=== PATIENT | female | born 1960 | race Asian ===

== ENCOUNTER → 2018-01-03 10:58 | Outpatient (CLI) | payer OTHER, SELFPAY ==
[2018-01-03 11:21] LABS: 24 Hour Urine Protein 218.2 mg/24HR (<150 MG/24HR); 24HR. UA Prot. Total Volume 2425 mL
[2018-01-03 11:36] LABS: Creat.Clear Total Volume 2425 mL; Creatinine Clearance 33 ml/min (100-200); Creatinine Urine 38.7 mg/dL (NO RANGE EST.); Creatinine, Serum 1.99 mg/dL (0.55-1.02); EST Glomerular Filtration Rate 28 mL/min (>60); Est Glom Filt Rate - Afr Amer 33 mL/min (>60)
[2018-01-04 14:25] LABS: ANTINUCLEAR ANTIBODIES DIRECT Negative (Negative)
[2018-01-04 16:11] LABS: PROEL- A/G Ratio 1.2 (0.7-1.7); PROEL- Albumin 4.1 g/dL (2.9-4.4); PROEL- Alpha-1 Globulin 0.2 g/dL (0.0-0.4); PROEL- Beta Globulin 1.2 g/dL (0.7-1.3); PROEL- Globulin, Total 3.4 g/dL (2.2-3.9); PROEL- TOTAL PROTEIN 7.5 g/dL (6.0-8.5)
[2018-01-08 22:08] LABS: PROELU- Albumin, Urine 39.9 % (.); PROELU- Alpha-1-Globulin,Ur 3.7 % (.); PROELU- Alpha-2-Globulin,Ur 12.2 % (.); PROELU- Beta Globulin, Ur 25.2 % (.)
[2018-01-09 11:15] LABS: Eosinophil Ct. Urine No Eosinophils Seen % (.); Hep C Antibodies <0.1 s/co ratio (0.0-0.9)
== END ==
PROVIDERS: Family Provider Internal Medicine; PCP Internal Medicine; Visit Provider Internal Medicine
DX: N28.9 Disorder of kidney and ureter, unspecified (principal); R80.9 Proteinuria, unspecified
CPT/HCPCS: 82565; 82575; 84156; 84165; 84166; 86038; 86803; 87205

== ENCOUNTER → 2018-01-07 07:37 | Outpatient (CLI) | payer OTHER, SELFPAY ==
--- NOTE | 2018-01-07 07:43 | RDU_ITS ---
Reason For Study: Acute Renal Insufficiency Right Renal Artery Left Renal Artery Right renal artery ostium 109/39 Left renal artery ostium 72/21 RSV/EDV. PSV/EDV. Right renal artery proximal 87/21 Left renal artery proximal PSV/EDV PSV/EDV. 68/22 . Right renal artery mid 114/36 Left renal artery mid 76/23 PSV/EDV. PSV/EDV . Right renal artery distal 115/41 Left renal artery distal 66/23 PSV/EDV. PSV/EDV. Right RAR 1.59. Left RAR 1.06. Right Renal Parenchyma Left Renal Parenchyma Upper Pole Medula 36/14 PSV/EDV. Left upper pole medulla 22/9 Right upper pole medulla EDR 0.39 . PSV/EDV . Right upper pole medulla R.I. Left upper pole medulla EDR 0.41 . 0.61 . Left upper pole medulla R.I. 0.58 . Upper Srikanth Cortx 20/9 PSV/EDV. UP Cortex 17/6 PSV/EDV. Right upper pole cortex EDR 0.45 . Left upper pole cortex EDR 0.35 . Right upper pole cortex R.I. 0.53 . Left upper pole cortex R.I. 0.67 . Right lower Pole medulla 23/7 Left lower Pole medulla 18/6 PSV/EDV . PSV/EDV . Right lower pole medulla EDR 0.30 . Left lower pole medulla EDR 0.33 . Right lower pole medulla R.I. Left lower pole medulla R.I. 0.69 . 0.69 . Lower Pole Cortx 14/4 PSV/EDV. Lower Pole Cortex 21/9 PSV/EDV. Left lower pole cortex EDR 0.29 . Right lower pole cortex EDR 0.43 . Left lower pole cortex R.I. 0.70 . Right lower pole cortex R.I. 0.58 . Left Renal Hilar Right Renal Hilar LT Hilar avg 81/26 PSV/EDV . Right Hilar avg 58/21 PSV/EDV. Left hilar acceleration time 37 Right hilar acceleration time 51 m/sec. m/sec. Left Renal Dimensions Right Renal Dimensions Left kidney size 9.63 cm . Right kidney size 9.11 cm . Left cortical dimension 1.37 cm . Right cortical dimension 1.35 cm . Aorta Proximal abdominal aorta 1.98cm x 1.76 cm . Proximal abdominal aorta peak systolic velocity is 72 cm/sec . Distal abdominal aorta 1.34cm x 1.32 cm . Distal abdominal aorta peak systolic velocity is 57 cm/sec . Interpretation Summary Dimensions of the intra-abdominal aorta appear normal, without evidence of aneurysmal dilatation. Renal artery velocities are bilaterally normal. Acceleration times are normal bilaterally. Renal- aortic ratios are also bilaterally normal. There is no evidence of hemodynamically significant renal artery stenosis on either side. Renovascular resistance appears to be bilaterally normal . Cortical dimensions are bilaterally normal. Kidneys appear normal in size bilaterally. Ordering Physician: Selina Menon Referring Physician: Selina Menon Performed By: Destinee Corcoran, JOON, RVT
--- NOTE | 2018-01-07 08:52 | US_ITS ---
STUDY: RENAL ULTRASOUND - COMPLETE REASON FOR EXAM: Female, 57 years old. Left renal mass removal TECHNIQUE: Ultrasound evaluation of the kidneys was performed with real-time and static edwards-scale imaging. COMPARISON: October 26, 2013 FINDINGS: RIGHT KIDNEY: Normal location of the right kidney, which is normal in size. The right kidney measures 9.9 x 4.7 x 4.7 cm. There is a normal cortex of the right kidney. The renal cortex measures 1.3 cm. There is no right renal mass or cyst. There are no right renal calculi. There is no right hydronephrosis. DISTAL RIGHT URETER: There is non-visualization of the distal right ureter. There is no demonstrated right ureterovesical junction calculus. There is no demonstrated right ureteral jet. LEFT KIDNEY: Normal location of the left kidney, which is normal in size. The left kidney measures 9.5 x 4.6 x 5.7 cm. There is a normal cortex of the left kidney. The renal cortex measures 1.7 cm. There is no left renal mass or cyst. There are no left renal calculi. There is no left hydronephrosis. DISTAL LEFT URETER: There is non-visualization of the distal left ureter. There is no demonstrated left ureterovesical junction calculus. There is a visualized left ureteral jet. AORTA: There is obscuration of the abdominal aorta by overlying bowel gas I.V.C.: The IVC is obscured. BLADDER: The distended urinary bladder has a volume of 55.4 ml. There is a normal wall thickness of the distended urinary bladder. There is no demonstrated mass within the urinary bladder. There are no demonstrated bladder calculi. US/Kidney and Bladder IMPRESSION: Normal ultrasound of the kidneys and urinary bladder. Electronically Signed: Angel Andrews MD at 22:38 EDT , Service support ,
== END ==
PROVIDERS: Family Provider Internal Medicine; PCP Internal Medicine; Visit Provider Internal Medicine
DX: N28.9 Disorder of kidney and ureter, unspecified (principal)
CPT/HCPCS: 76770; 93975

== ENCOUNTER 2018-05-03 13:00 | Outpatient (RCR) | payer OTHER, SELFPAY ==
--- NOTE | 2018-04-12 16:03 | HP.PTEVAL_ITS ---
Patient's Visit Information PIPE BRAGG is a 58 year old F referred to Physical Therapy by Selina Menon with a diagnosis of LBP. Date of Evaluation: 04/12/18 Physical Therapist: Angel Tripp, PT, - Visit Plan Frequency: 1x/Week Duration: 3 Weeks Plan: REIL, core stab ex's, postural edu, HEP - Subjective Subjective: Pt reports she has had LBP for 5 days. Pt notes she was moving at that time and injured her LB. Pt reports she has had a Hx of LBP in the past. Pt denies tingling or numbness in LE's at this time. No sleep diff secondary to pain. Pt reports bending forward at this time is very painful. Pt reports pr olonged sitting increases her pain as well. Pt reports walking presents with no difficulty. Pt reports having no Dx tests performed at this time. 1/10 pain while sitting her at rest, 8/10 at worst (going to the restroom) - Pain LBP Pain Intensity (Out of 10): 1 Pain Intensity Range: 8 - Objective Neuro: B LE sensation is WNL to light touch. B patellar reflex= 2/3. LE MMT: B LE's 5/5 throughout. L/S ROM: Pt is severely limited with ext and flexion. repeated movements: REIL abolished all pain in LB 10x2 - Goals Goal 1:: Decrease LBP x 50% to aid with IADL's Goal Time Frame: 2-4 Weeks Goal 2:: Increase L/S ROM x 1 grade to aid with IADL's Goal Time Frame: 2-4 Weeks Goal 3:: I with HEP Goal Time Frame: 2-4 Weeks - Rehabilitation Potential Physical Therapy Diagnosis: Pt has LBP and diff with IADL's secondary to L/S disc derrangement Rehabilitation Potential: Good - Anticipated Interventions Patient/Client Instruction: Educate patient on: Condition, Plan of Care For the Purpose of:: To improve self management Therapeutic Exercise to Include: Strength training, Endurance training, Body mechanics, Postural training, Dynamic Lumbar Stabilization For the Purpose of:: To decrease pain, To increase ROM, To improve muscle performance and motor function Cryotherapy (ice pack, ice massage): Yes Thermo therapy (hot pack): Yes For the Purpose of:: To decrease pain Thank you for the opportunity to evaluate your patient. For Medicare and Medicare HMO plans, please review the plan of care and approve it. It will need to be FAXED BACK to us at [phone] for Medicare purposes. Please let me know if there are questions or concerns regarding this plan of care. Physician Signature: Date:
--- NOTE | 2018-05-03 13:48 | HP.PTDCSUM ---
HP - PT D/C Summary It has been my pleasure to treat PIPE BRAGG under orders from Selina Menon, for the diagnosis of LBP for a total of 4 visit(s). Discharge Date: Please see the following information for a summary of their discharge status. - Subjective Subjective: Pt is doing much better today - Pain LBP Pain Intensity (Out of 10): 3 - Overall Improvement % Improvement: 75 - Objective Objective/Function: Pt reports pain is minimal at 2-09/01 this date. Pt has full L/S ROM. Pt is I with HEP. Rx goals achieved - Goals Goal 1:: Decrease LBP x 50% to aid with IADL's Goal Progress: Goal Met Goal 2:: Increase L/S ROM x 1 grade to aid with IADL's Goal Progress: Goal Met Goal 3:: I with HEP Goal Progress: Goal Met - Plan Plan: discharge - D/C Information If there are questions or concerns regarding this patient's physical therapy, please feel free to call me at [phone]. Thank you for the referral of this patient. Sincerely, Angel Tripp, PT,
== END 2018-05-03 19:00 | disposition home or self-care (01) ==
LOC: PT 13:00
PROVIDERS: Family Provider Internal Medicine; PCP Internal Medicine; Referring Provider Internal Medicine; Visit Provider Internal Medicine
DX: M54.5 Low back pain (principal)
CPT/HCPCS: 97110; 97161; 97530

== ENCOUNTER → 2018-05-27 11:09 | Outpatient (CLI) | payer OTHER, SELFPAY ==
--- OUTSIDE RECORDS SUMMARY | 2018-07-20 17:01 | XMS RPT_ITS | Continuity of Care Document ---
:1960 Author Organization [facility] Address [facility] [address] [place] [address] Phone Care Team Providers Name Role Phone Selina Menon MD Unavailable Tanphaichitr - Carson, Ozzie Unavailable Dr. Griffin Herbert Unavailable Piedad , Dr. Moya Unavailable PHI Mitchell Unavailable Unavailable Unavailable Unavailable Problems Name Dates Details Abnormal blood creatinine level (R79.9, 790.99) Status: Active Abnormal finding of blood chemistry, unspecified (R79.9, 790.6) Comments: uric acid up no signs and symptoms of gout started allopurinol through nephro Status: Active Abortions/Miscarriages Comments: 1 Status: Active Acute renal insufficiency (N28.9, 593.9) Comments: no nsaids. no new meds atb or recent IV dye she went 1.3 up to 1.88 she is urinating okay no pain. no postrenal signs and symptoms she is now oinly drinking one bottle a day. once she stopped gatorade b ecause sugar never increased upwater. so she will go on G2 recheck.normal until 2013 then in hospital with dehydration then 1.3 now backup. Status: Active Anxiety (F41.9, 300.00) Comments: doing okay just on seroquel Status: Active Benign essential hypertension (Renamed from Benign essential HTN) (I10, 401.1) Status: Active Bipolar affective, manic (F31.10, 296.40) Comments: original diagnosis with psych when in hospital has delusions talk to and doing some better Status: Active BMI 24.0-24.9, adult (Z68.24, V85.1) Status: Active BMI 25.0-25.9,adult (Z68.25, V85.21) Status: Active BMI 26.0-26.9,adult (Z68.26, V85.22) Status: Active BMI 27.0-27.9,adult (Z68.27, V85.23) Comments: gain at wedding not drink calories, eating out more with moving from house to condo. talk bout not eat slovenian fries. eat vegetables steamer packs. Status: Active Chronic kidney disease, stage 3 (N18.3, 585.3) Comments: FRANK neg, labs neg, us neg see nephro Status: Active Current nonsmoker (Renamed from Current non-smoker) (Z78.9, V49.89) Status: Active Deliveries (Parity) Comments: 2 Status: Active Delusional disorder, mixed type (F22, 297.1) Comments: patient was admitted and now on Abilify injectable, seems to being doing better, not doing as much risky behavior Status: Active Diabetes mellitus type II, controlled, with no complications (E11.9, 250.00) Comments: hga1c better now and stable. talka bout adding walking daily. eating good.opthal 1-18 Status: Active Eosinophilia (D72.1, 288.3) Status: Active Hyperglyceridemia (E78.1, 272.1) Comments: recheck next time Status: Active Hyperlipidemia (E78.5, 272.4) Comments: been on lipitor Status: Active Low back pain without sciatica, unspecified back pain laterality (724.2) Comments: right now in lower mid back. will do tylenol no nsaids with renal insuff. will do muscle relaxant. and PT which helped inpast will only do light packig no excess bending or lifting Status: Active Need for prophylactic vaccination and inoculation against influenza (Z23, V04.81) Status: Active OVERWEIGHT (Renamed from Excessive fat) (E66.3, 278.02) Comments: not bad now. recommend walk. will see if can go to [place]. has treadmil at home but in basement. Status: Active Pregnancies () Comments: 2 Status: Active Proteinuria (Renamed from Abnormal presence of protein in urine) (R80.9, 791.0) Comments: micro last 60 2-18 on arb. Status: Active Schizophrenia (F20.9, 295.90) Comments: right now under best control in long time see counseling center. Status: Active Vitamin D deficiency (E55.9, 268.9) Comments: now that up yo 70's will go from three times a week to weekly Status: Active Well woman exam (Renamed from Encounter for well woman exam) (Z01.419, V72.31) Comments: 09-03-17 [facility] Exam: Well Woman Dr. Mitchell August 24, has fu (has apt. September 18 for mammogram) BMI=26.7, PHQ-9=0, 6CIT=24/28, immunizations are up to date. she refused colonscopy and talk about her nurmerous times. even had set up. she states she gets ripping in head. talk about cologuard. she wilstart there and then consider scpe if positive vaccines needs pneumovax now. prevnar at 62 yo (bc DM) and then shingrix this summer Status: Active Medications Name Dates Details Fernandofsherry Maintena 400 MG Intramuscular Suspension Reconstituted uad For Suspension For Suspension IM once monthly for 0 days Quantity: 1 {Pre-filled_Pen_Syringe} Refills: 0 Ordered:16-Nov-2016 Selina Menon MD, MD, Dana M Start : 16-Nov-2016 Active Comments:counc. center will be given next dose 11-30-16 Acetaminophen Extra Strength 500 MG Oral Tablet 2 (two) Tablet up to three times a day for 0 days Quantity: 30 {Tablet} Refills: 0 Ordered:11-Apr-2018 Selina Menon MD, MD, Dana M Start : 11-Apr-2018 Active Allopurinol 100 MG Oral Tablet 1 (one) Tablet Tablet bid for 0 days Quantity: 60 {Tablet} Refills: 0 Ordered:12-Mar-2018 Selina Menon MD, MD, Dana M Start : 12-Mar-2018 Active Aspirin 81 81 MG Oral Tablet Chewable 1 (one) Tablet Tablet in am for 0 days Quantity: 30 {Tablet} Refills: 0 Ordered:06-Dec-2017 PHI Mitchell Start : 03-Sep-2017 Active Atorvastatin Calcium 20 MG Oral Tablet 1 Tablet daily for 0 days Quantity: 90 {Tablet} Refills: 3 Ordered:14-Mar-2018 Selina Menon MD, MD, Selina Allred Start : 14-Mar-2018 Active Losartan Potassium 50 MG Oral Tablet 1 (one) Tablet in am for 0 days Quantity: 90 {Tablet} Refills: 3 Ordered:01-Apr-2018 Selina Menon MD, MD, Selina Allred Start : 01-Apr-2018 Active Metoprolol Succinate ER 100 MG Oral Tablet Extended Release 24 Hour 1 (one) Tablet in am for 0 days Quantity: 90 {Tablet} Refills: 3 Ordered:06-May-2018 Lynsey OTT, Selina Tolentino MD, Selina Allred Start : 06-May-2018 Active Pioglitazone HCl 15 MG Oral Tablet 1 (one) Tablet in am for 0 days Quantity: 90 {Tablet} Refills: 3 Ordered:23-Jan-2018 Selina Menon MD, MD, Selina Allred Start : 23-Jan-2018 Active SEROquel XR 50 MG Oral Tablet Extended Release 24 Hour 1 (one) Tablet qd for 0 days Quantity: 30 {Tablet} Refills: 0 Ordered:12-Mar-2018 Selina Menon MD, MD, Selina Allred Start : 12-Mar-2018 Active Zanaflex 4 MG Oral Tablet 1 (one) Tablet every 8 hours prn back pain for 0 days Quantity: 20 {Tablet} Refills: 0 Ordered:11-Apr-2018 Selina Menon MD, MD, Selina Allred Start : 11-Apr-2018 Active Abilify 10 MG Oral Tablet 1 (one) Tablet at night for 0 days Quantity: 30 {Tablet} Refills: 1 Ordered:06-Apr-2016 PHI Mitchell Start : 31-Mar-2016 End : 06-Apr-2016 Inactive Abilify Maintena 300 MG Intramuscular Suspension Reconstituted 1 (one) For Suspension IM for 0 days Quantity: 1 {Each} Refills: 0 Ordered:06-Apr-2016 PHI Mitchell Start : 27-Mar-2016 End : 06-Apr-2016 Inactive AMOXICILLIN, 875MG (Oral Tablet) 1 BID for 0 days Refills: 0 Ordered:06-Nov-2008 PHI Mitchell End : 06-Nov-2008 Inactive ANTIVERT, 12.5MG (Oral Tablet) 1 Tablet q8 hrs prn for dizziness for 0 days Quantity: 20 {Tablet} Refills: 0 Ordered:08-Aug-2010 PHI Mitchell Start : 25-Jul-2010 End : 08-Aug-2010 Inactive AUGMENTIN, 875-125MG (Oral Tablet) 1 (one) Tablet bid for 14 days Quantity: 28 {Tablet} Refills: 0 Ordered:10-Jul-2013 Lynsey OTT, Selina Tolentino MD, Selina Allred Start : 10-Jul-2013 End : 24-Jul-2013 Inactive BACITRACIN, 500UNIT/GM (Ophthalmic Ointment) 1 Ointment apply 1/4 inch ointment bid for 0 days Quantity: 1 {Ointment} Refills: 0 Ordered:16-May-2010 Jessie Bales Start : 02-May-2010 End : 16-May-2010 Inactive BACTRIM DS, 800-160MG (Oral Tablet) 1 (one) Tablet bid for 5 days Quantity: 10 {Tablet} Refills: 0 Ordered:07-Dec-2008 Starlamichelledeon TRANFrances Start : 07-Dec-2008 End : 17-Dec-2008 Inactive CALCIUM, 600MG (Oral Tablet) for 0 days Refills: 0 Ordered:16-May-2010 Jessie Bales End : 16-May-2010 Inactive CELEBREX, 200MG (Oral Capsule) 1 (one) Capsule qd with food for 0 days Quantity: 30 {Capsule} Refills: 0 Ordered:16-May-2010 Jessie Bales Start : 21-Mar-2010 End : 16-May-2010 Inactive CHERATUSSIN AC, 100-10MG/5ML (Oral Syrup) 1-2 Teaspoon(s) every 6 hours prn for 0 days Quantity: 6 {Ounce(s)} Refills: 0 Ordered:25-Apr-2011 PHI Mitchell Start : 05-Apr-2011 End : 25-Apr-2011 Inactive Comments:six ounces CIPRO, 250MG (Oral Tablet) 1 (one) Tablet bid for 3 days Quantity: 6 {Tablet} Refills: 0 Ordered:10-May-2009 Frances Etienne CNP Start : 10-May-2009 End : 13-May-2009 Inactive CLOTRIMAZOLE, 10MG (Mouth/Throat Milan) 1 Milan 5 times daily for 10 days Quantity: 50 {Milan} Refills: 0 Ordered:21-Apr-2013 Long Arelis MAY Start : 21-Apr-2013 End : 01-May-2013 Inactive Clotrimazole-Betamethasone 1-0.05 % External Cream 1 (one) Cream bid for 0 days Quantity: 1 {Tube} Refills: 0 Ordered:16-Nov-2016 PHI Mitchell Start : 04-Sep-2016 End : 16-Nov-2016 Inactive CORTISPORIN, 3.5-40512-2 (Otic Solution) 1 Solution 4gtts qid for 10 days Quantity: 1 {Solution} Refills: 0 Ordered:28-Jun-2009 Ti Amber Start : 28-Jun-2009 End : 08-Jul-2009 Inactive DESOWEN LOT W/CETAPHIL CREAM, 0.05% (External Kit) 1 Kit bid for 0 days Quantity: 1 Kit Refills: 0 Ordered:08-Aug-2010 PHI Mitchell Start : 20-Jun-2010 End : 08-Aug-2010 Inactive DOXYCYCLINE HYCLATE, 100MG (Oral Tablet Delayed Release) [address] bid for 0 days Quantity: 20 {Tablet_DR} Refills: 0 Ordered:25-Apr-2011 PHI Mitchell Start : 05-Apr-2011 End : 25-Apr-2011 Inactive DOXYCYCLINE HYCLATE, 100MG (Oral Tablet) 1 Tablet bid for 10 days Quantity: 20 {Tablet} Refills: 0 Ordered:01-Jun-2011 Lynsey OTT, Selina Tolentino MD, Selina Allred Start : 01-Jun-2011 End : 11-Jun-2011 Inactive Ferrous Sulfate 325 (65 Fe) MG Oral Tablet Delayed Release 1 (one) Tablet DR bid for 0 days Quantity: 60 {Tablet} Refills: 7 Ordered:16-Nov-2016 PHI Mitchell Start : 04-Sep-2016 End : 16-Nov-2016 Inactive FLEXERIL, 10MG (Oral Tablet) 1 Tablet tid prn headache and neck tension for 0 days Quantity: 10 {Tablet} Refills: 0 Ordered:31-Mar-2010 PHI Mitchell Start : 31-Mar-2010 End : 31-Mar-2010 Inactive Comments:watch sedation, made sick FLONASE, 50MCG/ACT (Nasal Suspension) 1 Suspension 2 spray each nostirl daily for 0 days Quantity: 1 {Container} Refills: 4 Ordered:13-Feb-2014 PHI Mitchell Start : 15-Jan-2014 End : 13-Feb-2014 Inactive IMODIUM ADVANCED, 2-125MG (Oral Tablet) 1 for 0 days Refills: 0 Ordered:14-Feb-2010 PHI Mitchell Start : 10-May-2009 Inactive JANUMET, 50-500MG (Oral Tablet) 1 Tablet Tablet bid for 0 days Quantity: 60 {Tablet} Refills: 3 Ordered:26-Nov-2014 PHI Mitchell Start : 05-Nov-2014 End : 26-Nov-2014 Inactive Comments:stopped d/t excessive sweating JENTADUETO, 2.5-1000MG (Oral Tablet) 1 (one) Tablet bid for 0 days Quantity: 180 {Tablet} Refills: 0 Ordered:05-Nov-2014 PHI Mitchell Start : 27-Jan-2014 End : 05-Nov-2014 Inactive KEFLEX, 500MG (Oral Capsule) 1 (one) Capsule Capsule bid for 0 days Quantity: 14 {Capsule} Refills: 0 Ordered:27-Oct-2013 PHI Mitchell Start : 07-Oct-2013 End : 27-Oct-2013 Inactive LISINOPRIL-HYDROCHLOROTHIAZIDE, 20-12.5MG (Oral Tablet) 1 Tablet bid for 0 days Quantity: 180 {Tablet} Refills: 1 Ordered:27-Oct-2013 Selina Menon MD, MD, Dana M Start : 27-Oct-2013 End : 27-Oct-2013 Inactive Comments:hypotension MetFORMIN HCl 1000 MG Oral Tablet 1 Tablet bid for 0 days Quantity: 180 {Tablet} Refills: 3 Ordered:21-Dec-2017 Selina Menon MD, MD, Dana M Start : 21-Dec-2017 End : 21-Dec-2017 Inactive Comments:kidney function MULTIVITAMIN (Oral Liquid) for 0 days Refills: 0 Ordered:13-Feb-2014 PHI Mitchell End : 13-Feb-2014 Inactive NASACORT AQ, 55MCG/ACT (Nasal Aerosol Solution) 2 (two) Puff(s) once daily for 0 days Quantity: 1 {Aerosol_Soln} Refills: 0 Ordered:19-Sep-2010 Murali LALOZoila Start : 25-Jul-2010 End : 19-Sep-2010 Inactive NASONEX, 50MCG/ACT (Nasal Suspension) 1 Suspension 1 spray each nostril daily for 0 days Quantity: 1 {Suspension} Refills: 0 Ordered:13-Feb-2014 PHI Mitchell Start : 14-Jan-2013 End : 13-Feb-2014 Inactive OMEPRAZOLE, 40MG (Oral Capsule Delayed Release) [address] daily for 0 days Quantity: 30 {Capsule_DR} Refills: 1 Ordered:05-Jan-2012 PHI Mitchell Start : 16-Jun-2011 End : 05-Jan-2012 Inactive PHENERGAN, 25MG (Oral Tablet) Tablet TID/PRN for 0 days Quantity: 10 {Tablet} Refills: 0 Ordered:07-Dec-2008 PHI Mitchell Start : 07-Dec-2008 End : 22-Feb-2009 Inactive PREDNISONE, 20MG (Oral Tablet) 1 (one) Tablet Twice daily for 0 days Quantity: 7 {Tablet} Refills: 0 Ordered:07-Dec-2008 PHI Mitchell Start : 07-Dec-2008 End : 22-Feb-2009 Inactive Comments:1 tab bid for 2 days then 1 tab daily for 2 days then 1/2 tab daily for 2 days PROMETHAZINE-CODEINE, 6.25-10MG/5ML (Oral Syrup) 2 (two) Teaspoon(s) every 6 hours prn for 0 days Quantity: 6 {Ounce(s)} Refills: 0 Ordered:08-Nov-2010 PHI Mitchell Start : 14-Oct-2010 End : 08-Nov-2010 Inactive PROTONIX, 40MG (Oral Tablet Delayed Release) Tablet DR QD for 0 days Quantity: 14 {Tablet_DR} Refills: 0 Ordered:10-Apr-2008 PHI Mitchell Start : 10-Apr-2008 End : 27-Jul-2008 Inactive SEROquel 100 MG Oral Tablet 1 (one) Tablet 5pm and bedtime for 0 days Quantity: 180 {Tablet} Refills: 3 Ordered:16-Nov-2016 PHI Mitchell Start : 25-Apr-2016 End : 16-Nov-2016 Inactive Comments:not like in am because sleepy TOPICORT, 0.25% (External Cream) 1 Cream bid for 0 days Quantity: 1 {Cream} Refills: 0 Ordered:07-Dec-2008 PHI Mitchell Start : 07-Dec-2008 End : 22-Feb-2009 Inactive Tradjenta 5 MG Oral Tablet 1 (one) Tablet qd for 0 days Quantity: 30 {Tablet} Refills: 3 Ordered:16-Feb-2017 Lynsey OTT, Selina Tolentino MD, Selina Allred Start : 16-Feb-2017 End : 16-Feb-2017 Inactive TRAZODONE HCL, 50MG (Oral Tablet) 1 to 2 Tablet qhs, prn for 30 days Quantity: 60 {Tablet} Refills: 2 Ordered:27-Mar-2011 PHI Mitchell Start : 10-Nov-2010 End : 27-Mar-2011 Inactive Comments:dispense sixty Triamcinolone Acetonide 0.1 % External Lotion 1 (one) Lotion Lotion daily for 1 week on rash on face for 0 days Quantity: 1 {Tube} Refills: 0 Ordered:16-Feb-2017 PHI Mitchell Start : 17-Nov-2016 End : 16-Feb-2017 Inactive Vitamin D (Ergocalciferol) 46365 UNIT Oral Capsule 1 (one) Capsule weekly for 0 days Quantity: 12 {Capsule} Refills: 3 Ordered:12-Mar-2018 PHI Mitchell Start : 05-Mar-2018 End : 12-Mar-2018 Inactive ZANTAC 150 MAXIMUM STRENGTH, 150MG (Oral Tablet) 1 Tablet bid for 0 days Quantity: 60 {Tablet} Refills: 3 Ordered:06-Jun-2012 PHI Mitchell Start : 27-Nov-2011 End : 06-Jun-2012 Inactive ZEGERID, 40-1100MG (Oral Capsule) 1 Capsule qd for 0 days Quantity: 30 {Capsule} Refills: 3 Ordered:05-Jan-2012 PHI Mitchell Start : 16-Jun-2011 End : 05-Jan-2012 Inactive ZITHROMAX Z-HELADIO, 250MG (Oral Tablet) 1 Tablet uad for 0 days Quantity: 1 {Package(s)} Refills: 0 Ordered:25-Jul-2010 Zoila Carrion LPN Start : 27-Jun-2010 End : 25-Jul-2010 Inactive ZOLOFT, 100MG (Oral Tablet) 2 (two) Tablet qd for 0 days Quantity: 180 {Tablet} Refills: 3 Ordered:26-Nov-2014 PHI Mitchell Start : 13-Jan-2014 End : 26-Nov-2014 Inactive ANTIVERT, 25MG (Oral Tablet) Tablet TID/PRN for 0 days Quantity: 20 {Tablet} Refills: 0 Ordered:28-Mar-2007 PHI Mitchell Start : 28-Mar-2007 End : 04-Jun-2007 Discontinued DEPAKOTE, 500MG (Oral Tablet Delayed Release) 1 bid (500 MG) End : 09-Mar-2015 Discontinued HYDROCHLOROTHIAZIDE, 12.5MG (Oral Capsule) 1 Capsule daily for 0 days Quantity: 30 {Capsule} Refills: 6 Ordered:06-Jun-2012 Selina Menon MD, MD, Selina Allred Start : 06-Jun-2012 End : 06-Jun-2012 Discontinued NYSTATIN, 633996GXYD/ML (Mouth/Throat Suspension) 5 Suspension Twice daily for 0 days Quantity: 30 {Suspension} Refills: 0 Ordered:24-Aug-2008 Cami Degroot Start : 24-Aug-2008 End : 28-Sep-2008 Discontinued SEROquel 300 MG Oral Tablet 1 (one) Tablet qhs for 0 days Quantity: 30 {Tablet} Refills: 0 Ordered:17-Nov-2016 Selina Menon MD, MD, Selina Allred Start : 17-Nov-2016 End : 17-Nov-2016 Discontinued Allergies and Adverse Reactions Name Dates Details No Known Allergies (Allergy) Onset: 09-Mar-2015 Status: Active No Known Drug Allergies (Allergy) Status: Active Past Medical History Name Dates Details Abdominal pain, acute, left lower quadrant (R10.32, 789.04) Comments: pt says chest pain, but point to left lower quadrant Status: Inactive as of 06-Jun-2012 Acute renal failure (N17.9, 584.9) Comments: better off hctz ? abusing or taking too much Status: Resolved as of 09-Mar-2015 Anemia (D64.9, 285.9) Comments: better now off aleve. Status: Resolved as of 03-Sep-2017 Benign paroxysmal positional vertigo, unspecified laterality (H81.10, 386.11) Status: Inactive as of 13-Oct-2013 Bronchitis (J40, 490) Comments: pt request doxycyline because work in past. CT scan 05-27-11 no pneumonia. Status: Inactive as of 06-Jun-2012 Cerumen impaction (H61.20, 380.4) Status: Inactive as of 06-Jun-2012 Chronic serous otitis media, unspecified laterality (H65.20, 381.10) 28-Jun-2009 Status: Inactive as of 23-Jul-2009 Chronic Sinusitis (Renamed from Chronic infection of sinus) (J32.9, 473.9) Comments: just saw Dr. sharma and on kavita dry out. pt ask for atb again told her not need need to treat allergies again ent over regiman Status: Inactive as of 31-Aug-2015 Conjunctivitis (H10.9, 372.30) Comments: reports matted glue shut eyes in am Status: Inactive as of 06-Jun-2012 Cough (R05, 786.2) Status: Inactive as of 06-Jun-2012 Diarrhea (Renamed from D (diarrhea)) (R19.7, 787.91) Comments: at times get. no blood of fever or abd pain. prob IBS. use fiber daily. watch triggers. will be due for scope with age turning 52 Status: Inactive as of 06-Jun-2012 Diplopia (H53.2, 368.2) Comments: she canceled appt with neurology with normal MRI and everything better now want to go did go over signs and symptoms of MS and if get any neuro signs and symptoms will call Status: Resolved as of 03-Sep-2017 Dizziness (R42, 780.4) Comments: occassional Status: Inactive as of 13-Oct-2013 Elevated blood-pressure reading without diagnosis of hypertension (R03.0, 796.2) Comments: stillup. Status: Inactive as of 13-Oct-2013 Encounter for screening colonoscopy (Z12.11, V76.51) Status: Resolved as of 06-Dec-2017 Encounter for screening for respiratory tuberculosis (Z11.1, V74.1) Status: Inactive as of 06-Jun-2012 Epigastric pain (Renamed from Abdominal pain, epigastric) (R10.13, 789.06) Status: Inactive as of 01-Mar-2012 Eye change Status: Resolved as of 08-Dec-2008 Fever (R50.9, 780.60) Comments: better now not have aches. Status: Inactive as of 06-Jun-2012 Fever, unspecified (R50.9, 780.60) Comments: low grade check ifluenza ? get early virus no bacterial infection. see lakeishanickolas KIRILL told brat diet if worsen call. Status: Inactive as of 06-Jun-2012 Foot pain (M79.673, 729.5) Status: Resolved as of 08-Dec-2008 Gastroenteritis (K52.9, 558.9) Status: Inactive as of 23-Jul-2009 Headache (Renamed from Cephalalgia) (R51, 784.0) Status: Inactive as of 13-Oct-2013 Hematoma of finger Comments: told watch nsaid if need if not better in 04-07 will do mri of finger rule out nodule, mass tumor underlying, no trauma not think need xray Status: Resolved as of 08-Dec-2008 Hypercalcemia (E83.52, 275.42) Comments: pth good and recheck good Status: Resolved as of 16-Feb-2017 Hyperkalemia (E87.5, 276.7) Comments: again. pt went back on again even after outrr talk. pt states restarted lisinopril and told her dangerous must stop and called also Status: Inactive as of 27-Feb-2014 Ingrown toenail (L60.0, 703.0) Comments: better Status: Inactive as of 13-Feb-2014 Iron deficiency anemia due to chronic blood loss (D50.0, 280.0) Comments: she canceled the appt with Dr. herbert because the appt set up come fromt he air and hurt her back. told her could have cancer and needs to get back in with her. Status: Resolved as of 15-Jan-2017 Memory change (R41.3, 780.93) Comments: pt very hard to reason with not remember things talk about in pat. ayodwain have issue wtih her. danger to life. judgement off. still not understand why doing what need to do with meds. irrat ional. needs cognitive testing and psychiatrist. i am very concern about pts personally safety wtih taking meds wrong, inability to understand reasoning, not allo to help, not care for self at home just sle ep and eat, in bed alot. she refuses help. also sy at time confused. i called and talk to ER Dr. she agree if concern for pt safety then needs to come to ER and possible pink slip. called squad and had them take her to the ER. told pt concerned about high K and confusion. called and made aware sent to ER and he will meet her there. recalled ER at 1 pm to see how pt doing and resting ca lmly a day they are awaiting labs and CT scan of head Status: Inactive as of 31-Aug-2015 Bhat's neuroma (355.6) Comments: may now have one in left foot getting better talk about no high heels for awhile nsaids and gel pads not better injection Status: Inactive as of 13-Oct-2013 Nausea (R11.0, 787.02) Comments: better now / atb or virus reveiwed with patient hospital Status: Inactive as of 02-Dec-2012 Nausea & vomiting (R11.2, 787.01) Status: Resolved as of 08-Dec-2008 Need for prophylactic vaccination and inoculation against influenza (Renamed from Need for immunization against influenza) (Z23, V04.81) Status: Resolved as of 03-Sep-2017 Neoplasm of uncertain behavior of skin (D48.5, 238.2) Status: Resolved as of 08-Dec-2008 Other chest pain (R07.89, 786.59) Comments: was in ER and t waves changed will get this EKG depending once see EKG first will decide stress or if signifacnt will do cath. will set up stress then will change if have to. no signs and sy mptoms now. Status: Inactive as of 06-Jun-2012 Other specified viral infection, in conditions classified elsewhere and of unspecified site (B97.89, 079.89) 14-Oct-2010 Status: Inactive as of 06-Jun-2012 Overuse of medication (Z91.14, V15.81) Comments: she is over using tylenol and advil for the liquid to ehlp her skin. she does not have pain. toldher that could hurt her liver. she will try just using the tylenol 3000 mg or less only a day Status: Resolved as of 17-Nov-2016 Pain in joint involving ankle and foot, unspecified laterality (M25.579, 719.47) Comments: saw Dr. welch had to go on atb willget info. 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 talk about gardisil. told not recommended at her age but handout given on HPV check in pap recommended. Status: Inactive as of 06-Jun-2012 Pneumococcal vaccination given (Z23, V06.6) Status: Resolved as of 06-Dec-2017 Rash (Renamed from Cutaneous eruption) (R21, 782.1) 20-Jun-2010 Comments: look like contact dermatitis pt not know why. ? cocn ut pie at [facility] and will give short course of steriod cream Status: Inactive as of 15-Jan-2017 Screening mammogram, encounter for (Z12.31, V76.12) Status: Resolved as of 06-Dec-2017 Shortness of breath at rest (R06.02, 786.05) Status: Inactive as of 13-Oct-2013 Sinusitis, acute (J01.90, 461.9) Comments: having every 1-2 months. just started normal between episodes will try antihistamine and steriod nasal spray. hold off atb. see if can clear over 7-10days Status: Inactive as of 13-Oct-2013 Sinusitis, acute (J01.90, 461.9) Comments: think viral could be allergic. starting atb with toe infection Status: Inactive as of 06-Jun-2012 Sleep disorder (Renamed from Disordered sleep) (G47.9, 780.50) Comments: still sleep alot on short acting seraquel will use 1/2 before 9 pm, jwill set alarm at 8 am. get active oscar. no more etoh. was drinking daily told interact with meds. Status: Inactive as of 13-Oct-2013 Stress reaction (F43.0, 308.9) Comments: been on zoloft. wash hands alot and talk about over cleaning and washing hands. ue mosturizer and wash less. right now think zoloft good dose. Status: Inactive as of 13-Oct-2013 Temporomandibular joint disorder, unspecified (M26.609, 524.60) Status: Inactive as of 13-Oct-2013 Thrush (B37.0, 112.0) Status: Inactive as of 13-Oct-2013 Urinary frequency (R35.0, 788.41) Status: Inactive as of 06-Jun-2012 UTI (lower urinary tract infection) (N39.0, 599.0) Comments: thought had with some bacteria in urine but now better. will follow for signs and symptoms Status: Inactive as of 13-Feb-2014 Viral warts, unspecified type (B07.9, 078.10) Comments: 4th digit, still small 2 mm area left so refreeze to assure gone Status: Inactive as of 06-Jun-2012 Wart (B07.9, 078.10)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 auscultation bilaterally. HEART: Regular rate and rhythm. No murmur. ABDOMEN: Soft, nontender, nondistended. No organomegaly or masses. EXTREMITIES: Moves all 4. Ca lves are nontender, no edema, no cords. Bilateral employment supervisor strength. Bilateral dorsi and plantar flexion. NEUROLOGIC: She is awake, alert, answers questions, follows commands and has no motor deficits. EMERGENCY DEPARTMENT COURSE: A middle-aged female complaining of lightheadedness, dizziness, not vertiginous. No neurological findings. TEST RESULTS: EKG: Sinus rhythm, rate 84, no acute signs of SD or ischemia, unchanged from a recent EKG several days ago. CBC: Unremarkable, normal white count, normal H and H, no bands. Electrolytes: Unremarkable except for potassium of 5.9; however , it is hemolyzed. Her gap is normal. Her BUN and creatinine are normal at 23 and 0.8. UA shows 5-10 white cells, no reds, no epithelial cells, no bacteria. Will be sent for a culture. Most likely, this is not an infection. IMPRESSION: 1. Dizziness, uncertain etiology. 2. Rule out urinary tract infection. 3. History of depression. PLAN: Urine culture. I will start her on Keflex most likel y, though if this culture ____ negative, that can be stopped. I talked to her . Her has appointment and he would seen tomorrow by Dr. Menon. I am comfortable with her being dischar ged to home. She did request to be admitted ____ she meets any criteria for admission and thinks that her depression may have some play into this. Urine culture would be sent, given a Keflex here and discharged to home and follow up with Dr. Menon. Jaswant Almeida MD C C: Selina Menon MD T: NTS JOB: [id number] 11/05/13 1701 <Electronically signed by Jaswant Almeida MD> Da te Jaswant Almeida MD CC: Selina Menon MD Date Dictated: 10/27/132355 Date Transcribed: 10/27/132355 Fruit Room Hand: Signed 28-Oct-2013 12 Lead Electrocardiogram Result: Comments: See Note; NOTES: [facility] Cardiovascular Services [address] [place] [address] 12 Lead EKG 10/27/132047 MR#: [id number] Acct: [id number] Name: PIPE BRAGG ep #: [id number] : 1960 53 From: Omar Bacon MD Attending Dr: Status: DEP ER Ordering Dr: Jaswant Almeida MD Date: 10/27/13 Location: ED Sex: F A Admitted: Test Reason : DIZZY Blood Pressure : / mmHG Vent. Rate : 084 BPM Atrial Rate : 084 BPM P-R Int : 208 ms QRS Dur : 088 ms QT Int : 392 ms P-R-T Axes : 042 -17 023 degrees QTc Int : 463 ms Normal sinus rhythm Normal ECG Confirmed by OMAR BACON ([id number]), research editor RAZIA MATT ([id number]) on 10/28/2013 10: 00:15 AM Referred By: Jaswant Almeida Confirmed By:OMAR BACON CC: Selina Menon MD Date Dictated: 10/27/13 8 Date Transcribed: 10/27/132047 Fruit Room Hand: Signed 25-Oct-2013 History & Physical Examination Result: Comments: See Note; NOTES: [facility] Medical Records Department [address] [place] [address] History and Physical 10/25/13 0118 MR#: [id number] Acct: [id number] Name: PIPE RAPP Rep #: [id number] : 1960 53 From: Fredi Rojas MD PCP: Selina Menon MD Status: REG ER Y Location: ED Problem List (1) Depression Status: Chronic (2) Hypertension Status: C hronic (3) Acute nontraumatic kidney injury Status: Acute History of Present Illness Date of Admission: 10/25/13 Chief Complaint: Generalized weakness The patient is a 53 year old F history of depression, hypertension with recent medication changes in her antidepressant was brought to the hospital by the has not on account of patient complaining of not feeling well for the past week. Patie nt complains of epigastric discomfort associated with nausea, vomiting and some diarrhea. She also did complain of not being able to concentrate as well as having some heat in her he ad. She presented to the emergency department her workup was consistent with acute renal failure with metabolic acidosis. Head CT obtained was unremarkable. She was started on IV fluids and subsequen tly admitted to the regular nursing floor for further inpatient management. Past Medical History Past Medical History (Chronic Problems): Chronic Problems Depression (Chronic) HTN (hypertension ) (Chronic) Allergies No Known Allergies Allergy (Verified 10/25/13 19:41) Home Medications: Ambulatory Orders Medication Instructions Recorded Lisinopril/Hydrochlorothiazide 10/25/13 [Lisinopril-Hctz 20-12.5 mg Tab] Loratadine [Claritin] 10/25/13 Metoprolol Tartrate 10/25/13 Quetiapine Fumarate [Quetiapine 10/25/13 Fumarate] Quetiapine Fumarate [Quetiapine 10/25/13 Fumar ate] Sertraline HCl [Sertraline HCl] 10/25/13 Surgical History: no surgical history Psychiatric History: Depression Smoking Status: Never smoker - *Family History Maternal History Items: Hypertension Review of Systems Constitutional: Reports: Weakness, Fatigue. Denies: Anorexia, Chills, Fever, Night Sweats, Weight Change HEENT: Reports: Head Aches. Denies: Sinus Congestion, Sinus D rainage Cardiovascular: Denies: Chest Pain, Orthopnea, Palpitations, Paroxysmal Noc. Dyspnea Respiratory: Denies: Cough, Shortness of breath at rest, Shortness of breath upon exertion, Sputum produc tion Gastrointestinal: Reports: Diarrhea, Nausea, Vomiting. Denies: Abdominal Pain, Hematemesis, Hematochezia, Melena Genitourinary: Denies: Dysuria, Frequency, Hematuria, Urgency Musculoskeletal: D enies: Joint Pain, Joint Tenderness Skin: Denies: Rash Neurological: Denies: Focal weakness, Numbness, Tingling Psychiatric: Reports: Depression. Denies: Homicidal Ideations, Suicidal Ideations Hem atologic/ Lymphatic: Denies: Easy Bruising, Easy Bleeding VTE Information - Inpt Only VTE Present on Admission: No VTE Mechan Device Prophylaxis: Knee High COLLEEN Hose VTE Pharm Prophylaxis ordered?: Yes Objective: GENERAL: Flat Affect HEENT: Clear conjunctiva, moist oral mucosa NECK; supple, normal thyroid, no distended JVD. CHEST: Clear to auscultation bilaterally, HEART: Regular S1 S2, no a udible murmurs ABDOMEN: soft, non-tender, normoactive bowel sounds, RECTAL: deferred EXTREMITIES: No edema, no clubbing, no cyanosis. POULTRY PROCESSOR: Awake, alert and oriented to place and person, SKIN: No le sions no erythema, - Physical Exam Vital Signs Temp Pulse Resp BP Pulse Ox 94 16 97/70 94 10/25/13 22:13 10/25/13 22:13 10/25/13 22:13 10/25/13 22:13 Oxygen Delivery Method Room Air Gregory ght: 68.039 kg Body Mass Index (BMI) 27.4 Laboratory Tests Past 24 Hrs 10/25/13 10/25/13 10/25/13 20:10 20:30 21:15 WBC 9.4 RBC 4.20 Hgb 12.9 Hct 38.3 MCV 91.2 MCH 30.7 MCHC 33.7 RDW 12.6 RDW Differential 41.9 Plt Count 348 MPV 9.7 Immature Gran % 0.200 Neut % 72.3 H Lymph % 21.6 Barnes % 4.3 Eos % 1.3 Baso % 0.3 Absolute Neuts (auto) 6.8 Total Counted Not Reportable Sodium 134 L Potassium 5.3 H Chloride 108 H Carbon Dioxide 14.0 L Anion Gap 12 BUN 72 H Creatinine 1.8 H Est GFR (MDRD) Af Amer 39 L Est GFR (MDRD) Non-Af 32 L BUN/Creatin ine Ratio 40.0 H Glucose 160 H Lactic Acid 1.7 Calcium 10.5 H Troponin I < 0.02 Urine Color Yellow Urine Clarity Clear Urine pH 5.0 Ur Specific [place] 1.020 Urine Protein 15 H Urine Glucose (UA) Normal Urine Ketones Negative Urine Occult Blood Negative Urine Nitrite Negative Urine Bilirubin Negative Urine Urobilinogen Normal Ur Leukocyte Esterase 100 H Urine RBC 0 SEEN Urine WBC 0-5 SEEN Ur Squamous Epith Cells 0-5 SEEN Urine Bacteria 0 SEEN Hyaline Casts 5-10 SEEN Urine Mucus 0 SEEN Urine Opiates Screen NEGATIVE Urine Methadone Screen NEGATIV E Ur Barbiturates Screen NEGATIVE Ur Phencyclidine Scrn NEGATIVE Ur Amphetamines Screen NEGATIVE U Methamphetamin-MDMA NEGATIVE U Benzodiazepines Scrn NEGATIVE Urine Cocaine Screen NEGATIVE U Cannabinoids Screen NEGATIVE Ur Drug Screen Comment Assessment/Plan Active and Suspected Problems CHITO (acute kidney injury) (Acute) 1. Generalized weakness in the context of acute kidne y injury. Patient is admitted to regular nursing floor started on IV fluids with monitoring of electrolytes. Ordered a renal ultrasound for further evaluation. 2. Metabolic acidosis secondary to abo ve management as discussed above 3. Severe depression patient is on Seroquel 4. Hypertension-blood pressure controlled, he home medications (lisinopril and HCTZ) however held in view of her worseni ng kidney function. 5. DVT prophylaxis start heparin 10/25/13 6966 <Electronically signed by Fredi Rojas MD> Date Fredi Rojas MD CC: Selina Menon MD; Fredi Rojas MD Signed 25-Oct-2013 Brain/Head without Contrast Result: Comments: See Note; NOTES: [facility] Imaging Services [address] [place] [address] CAT Scan Report MR#: [id number] Acct: [id number] Name: PIPE BRAGG Rep #: [id number] OB: 1960 F 53 From: Marylou Matt MD PCP: Selina Menon MD Status: REG ER Study: Brain/Head without Contrast Date of Exam: 10/25/13 Exam# [id number] Ordering Dr: Betito Castillo MD STUDY: CT BRAI N WITHOUT CONTRAST REASON FOR EXAM: Female, 53 years old. Headache, nausea, disoriented and lightheaded for one week. RADIATION DOSAGE (If Supplied By Facility): CTDIvol = ( 56.99 ) mGy, DLP = ( 8 00.04 ) mGycm TECHNIQUE: Transaxial CT imaging of the brain was performed without administration of intravenous contrast material. COMPARISON: None. FINDINGS: Normal soft tissue structures. Normal calvarium. There is mild cerebral atrophy with widening of the extra-axial spaces and ventricular dilatation. There are areas of decreased attenuation within the white matter tracts of the supratentorial brain, consistent with microvascular disease changes. Normal basal ganglia and thalami. Normal brainstem. There is mild cerebellar atrophy. There is no intracranial hemorrhage. There are no findings of an acute ischemic infarction. Normal visualized paranasal sinuses. IMPRESSION: Mild involutional changes of t he brain and sequela of microvascular disease without CT evidence of acute intracranial hemorrhage. Electronically Signed: Marylou Matt MD at 21:27 EDT , Service suppo rt [phone], CC: Selina Menon MD; Betito Castillo MD Fruit Room Hand: Signed 17-Oct-2013 Liver Result: Comments: See Note; NOTES: [facility] Imaging Services [address] [address] Ultrasound Report MR#: [id number] Acct: [id number] Name: PIPE BRAGG Rep #: [id number] : 1960 F 53 From: Griffin Singh MD PCP: Selina Menon MD Status: REG CLI Study: Liver Date of Exam: 10/17/13 Exam# [id number] Ordering Dr: Selina Menon MD STUDY: ABDOMINAL ULTRASOU ND - RIGHT UPPER QUADRANT REASON FOR VISIT: Female, 53 years old. Elevated liver function tests. TECHNIQUE: Ultrasound evaluation of the right upper quadrant was performed with real-time and static morocho-scale imaging. TECHNICAL QUALITY: Adequate. COMPARISON: None. FINDINGS: Liver: The liver measures 17.3 cm. There is increased echogenicity consistent with fatty infiltration. The bile ducts are within normal limits. There is hepatic color flow. The direction of portal flow is hepatopetal. There is no demonstrated mass lesion. There is a 2.4 cm x 1 .7 cm x 0.8 cm area of normal echotexture of the liver in the region of the gallbladder fossa suggestive of focal fatty sparing. Gallbladder: Normal distended gallbladder. The gallbladder wall measur es 2.0 mm. There is a negative sonographic Evangelista's sign. There is no pericholecystic fluid. There are no gallstones. Common Bile Duct (C.B.D.): The common bile duct measures 5.0 mm. Pancreas: Nor mal size of the head, body and tail of the pancreas. There is normal echogenicity of the pancreas. There is no demonstrated pancreatic mass or cyst. Right Kidney: Normal size of the right kidney. Th e right kidney measures 9.4 cm. Normal renal cortex. The right cortex measures 1.4 cm. There is no demonstrated renal mass or cyst. There is no right hydronephrosis. Several small calcifications are seen within the kidneys suggestive of tiny calculi. IMPRESSION: Fatty infiltration of the liver with focal area of fatty sparing. Findings suggestive of tiny ri ght intrarenal calculi. Electronically Signed: Griffin Singh MD at 11:13 EDT Tel [phone], Service support [phone], CC: Selina Menon MD Fruit Room Hand: Signed 07-Oct-2013 ELECTROCARDIOGRAM, COMPLETE (ECG) (31430) Result: [MEASUREMENTS ANALYSIS] Date of Test: 10/07/2013 13:59:33; Heart Rate: 95; MO Interval: 0; QRS: 86; QT Interval: 370; Corrected QT Interval (QTc): 431; P Wave [place]: 62; QRS Wave [place]: -8; T Wave [place]: 3 7; Blood Pressure: 0/0 [ECG DIAGNOSTIC STATEMENTS] Date of Test: 10/07/2013 13:59:33; Summary: Atrial flutter -RSR(V1) -nondiagnostic. ABNORMAL RHYTHM; ADDENDA: (10/07/2013 02:10 PM) NSR good not acute changes. 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 Status: Active No Caffeine Use Status: Active No Drug Use Status: Active Non Smoker/No Tobacco Use Status: Active Tobacco use: Never smoker. Status: Active Tobacco use: Never smoker. Comments: updated 11-27-11 Status: Inactive Smoking Status Name Dates Details Never smoker Vital Signs Date Test Result Details [id number] Temperature 97.6 f Comments: Method: Temporal Pulse 102 /min Comments: Pattern: Regular Respiration Rate 20 /min Comments: Pattern: Unlabored O2 SAT 98 % Comments: Room air BP Systolic 126 mm[Hg] Comments: Patient Position: Sitting; Cuff Location: Left Arm; Cuff Size: Standard BP Diastolic 80 mm[Hg] Comments: Patient Position: Sitting; Cuff Location: Left Arm; Cuff Size: Standard Weight 147 lb Height 61 in Body Mass Index Calculated 27.78 kg/m2 Body Surface Area Calculated 1.66 m2 :22 Temperature 97.1 f Comments: Method: Temporal Pulse 82 /min Comments: Pattern: Regular Respiration Rate 20 /min Comments: Pattern: Unlabored O2 SAT 98 % Comments: Room air BP Systolic 120 mm[Hg] Comments: Patient Position: Sitting; Cuff Location: Left Arm; Cuff Size: Standard BP Diastolic 80 mm[Hg] Comments: Patient Position: Sitting; Cuff Location: Left Arm; Cuff Size: Standard Weight 147 lb Height 61 in Body Mass Index Calculated 27.78 kg/m2 Body Surface Area Calculated 1.66 m2 :50 Temperature 98.4 f Comments: Method: Temporal Pulse 90 /min Comments: Pattern: Regular Respiration Rate 20 /min Comments: Pattern: Unlabored O2 SAT 98 % Comments: Room air BP Systolic 120 mm[Hg] Comments: Patient Position: Sitting; Cuff Location: Left Arm; Cuff Size: Standard BP Diastolic 80 mm[Hg] Comments: Patient Position: Sitting; Cuff Location: Left Arm; Cuff Size: Standard Weight 140 lb Height 61 in Body Mass Index Calculated 26.45 kg/m2 Body Surface Area Calculated 1.62 m2 :58 Temperature 97.5 f Comments: Method: Temporal Pulse 90 /min Comments: Pattern: Regular Respiration Rate 20 /min Comments: Pattern: Unlabored O2 SAT 99 % Comments: Room air BP Systolic 124 mm[Hg] Comments: Patient Position: Sitting; Cuff Location: Left Arm; Cuff Size: Standard BP Diastolic 78 mm[Hg] Comments: Patient Position: Sitting; Cuff Location: Left Arm; Cuff Size: Standard Weight 140 lb Height 61 in Body Mass Index Calculated 26.45 kg/m2 Body Surface Area Calculated 1.62 m2 :25 Temperature 97.6 f Comments: Method: Temporal Pulse 78 /min Comments: Pattern: Regular Respiration Rate 20 /min Comments: Pattern: Unlabored O2 SAT 98 % Comments: Room air BP Systolic 110 mm[Hg] Comments: Patient Position: Sitting; Cuff Location: Left Arm; Cuff Size: Standard BP Diastolic 74 mm[Hg] Comments: Patient Position: Sitting; Cuff Location: Left Arm; Cuff Size: Standard Weight 141 lb Height 61 in Body Mass Index Calculated 26.64 kg/m2 Body Surface Area Calculated 1.63 m2 :16 Temperature 97.6 f Comments: Method: Temporal Pulse 88 /min Comments: Pattern: Regular Respiration Rate 16 /min Comments: Pattern: Unlabored O2 SAT 98 % Comments: Room air BP Systolic 132 mm[Hg] Comments: Patient Position: Sitting; Cuff Location: Left Arm; Cuff Size: Standard BP Diastolic 86 mm[Hg] Comments: Patient Position: Sitting; Cuff Location: Left Arm; Cuff Size: Standard Weight 142 lb Height 62 in Body Mass Index Calculated 25.97 kg/m2 Body Surface Area Calculated 1.65 m2 :34 Temperature 97.5 f Comments: Method: Temporal Pulse 92 /min Comments: Pattern: Regular Respiration Rate 20 /min Comments: Pattern: Unlabored O2 SAT 98 % Comments: Room air BP Systolic 124 mm[Hg] Comments: Patient Position: Sitting; Cuff Location: Left Arm; Cuff Size: Standard BP Diastolic 84 mm[Hg] Comments: Patient Position: Sitting; Cuff Location: Left Arm; Cuff Size: Standard Weight 135 lb Height 62 in Body Mass Index Calculated 24.69 kg/m2 Body Surface Area Calculated 1.62 m2 :34 Temperature 96.4 f Comments: Method: Tympanic Pulse 94 /min Comments: Pattern: Regular Respiration Rate 18 /min Comments: Pattern: Unlabored O2 SAT 98 % Comments: Room air BP Systolic 160 mm[Hg] Comments: Patient Position: Sitting; Cuff Location: Left Arm; Cuff Size: Standard BP Diastolic 102 mm[Hg] Comments: Patient Position: Sitting; Cuff Location: Left Arm; Cuff Size: Standard Weight 136 lb Height 62 in Body Mass Index Calculated 24.87 kg/m2 Body Surface Area Calculated 1.62 m2 :55 Pulse 80 /min Comments: Pattern: Regular Respiration Rate 16 /min BP Systolic 138 mm[Hg] Comments: Patient Position: Sitting BP Diastolic 96 mm[Hg] Comments: Patient Position: Sitting :06 Pulse 82 /min Comments: Pattern: Regular Respiration Rate 16 /min O2 SAT 96 % Comments: Room air BP Systolic 156 mm[Hg] Comments: Patient Position: Sitting BP Diastolic 80 mm[Hg] Comments: Patient Position: Sitting :51 Temperature 97.5 f Comments: Method: Temporal Pulse 116 /min Comments: Pattern: Regular Respiration Rate 20 /min Comments: Pattern: Unlabored O2 SAT 100 % Comments: Room air BP Systolic 130 mm[Hg] Comments: Patient Position: Sitting; Cuff Location: Left Arm; Cuff Size: Standard BP Diastolic 80 mm[Hg] Comments: Patient Position: Sitting; Cuff Location: Left Arm; Cuff Size: Standard Weight 143 lb Height 62 in Body Mass Index Calculated 26.15 kg/m2 Body Surface Area Calculated 1.66 m2 :27 Pulse 104 /min Comments: Pattern: Regular Respiration Rate 16 /min O2 SAT 97 % Comments: Room air BP Systolic 126 mm[Hg] Comments: Patient Position: Sitting BP Diastolic 88 mm[Hg] Comments: Patient Position: Sitting :33 Comments: refuse temperature Pulse 98 /min Comments: Pattern: Regular Respiration Rate 16 /min BP Systolic 122 mm[Hg] Comments: Patient Position: Sitting BP Diastolic 76 mm[Hg] Comments: Patient Position: Sitting :33 Temperature 98.9 f Comments: Method: Oral Pulse 95 /min Comments: Pattern: Regular Respiration Rate 16 /min O2 SAT 99 % Comments: Room air BP Systolic 134 mm[Hg] Comments: Patient Position: Sitting BP Diastolic 80 mm[Hg] Comments: Patient Position: Sitting Weight 128 lb :10 Temperature 97.8 f Comments: Method: Oral Pulse 94 /min Comments: Pattern: Regular Respiration Rate 16 /min Comments: Pattern: Unlabored O2 SAT 98 % Comments: Room air BP Systolic 140 mm[Hg] Comments: Patient Position: Sitting; Cuff Location: Left Arm; Cuff Size: Standard BP Diastolic 80 mm[Hg] Comments: Patient Position: Sitting; Cuff Location: Left Arm; Cuff Size: Standard Weight 138 lb Height 62 in Body Mass Index Calculated 25.24 kg/m2 Body Surface Area Calculated 1.63 m2 :04 Temperature 97.6 f Comments: Method: Temporal Pulse 90 /min Comments: Pattern: Regular Respiration Rate 18 /min Comments: Pattern: Unlabored O2 SAT 98 % Comments: Room air BP Systolic 130 mm[Hg] Comments: Patient Position: Sitting; Cuff Location: Left Arm; Cuff Size: Standard BP Diastolic 90 mm[Hg] Comments: Patient Position: Sitting; Cuff Location: Left Arm; Cuff Size: Standard Weight 136 lb Height 62 in Body Mass Index Calculated 24.87 kg/m2 Body Surface Area Calculated 1.62 m2 :28 Temperature 97.6 f Comments: Method: Temporal Pulse 124 /min Comments: Pattern: Regular Respiration Rate 18 /min Comments: Pattern: Unlabored O2 SAT 98 % Comments: Room air BP Systolic 178 mm[Hg] Comments: Patient Position: Sitting; Cuff Location: Left Arm; Cuff Size: Standard BP Diastolic 90 mm[Hg] Comments: Patient Position: Sitting; Cuff Location: Left Arm; Cuff Size: Standard Weight 139 lb Height 62 in Body Mass Index Calculated 25.42 kg/m2 Body Surface Area Calculated 1.64 m2 :56 Temperature 97.9 f Comments: Method: Oral Pulse 76 /min Comments: Pattern: Regular Respiration Rate 20 /min Comments: Pattern: Unlabored BP Systolic 126 mm[Hg] Comments: Patient Position: Sitting; Cuff Location: Left Arm; Cuff Size: Standard BP Diastolic 82 mm[Hg] Comments: Patient Position: Sitting; Cuff Location: Left Arm; Cuff Size: Standard Weight 138 lb Height 62 in Body Mass Index Calculated 25.24 kg/m2 Body Surface Area Calculated 1.63 m2 :17 Temperature 98.2 f Comments: Method: Temporal Pulse 70 /min Comments: Pattern: Regular Respiration Rate 16 /min Comments: Pattern: Unlabored O2 SAT 97 % Comments: Room air BP Systolic 124 mm[Hg] Comments: Patient Position: Sitting; Cuff Location: Left Arm; Cuff Size: Standard BP Diastolic 74 mm[Hg] Comments: Patient Position: Sitting; Cuff Location: Left Arm; Cuff Size: Standard Weight 137 lb Height 62 in Body Mass Index Calculated 25.06 kg/m2 Body Surface Area Calculated 1.63 m2 :41 Temperature 98.8 f Comments: Method: Oral Pulse 80 /min Comments: Pattern: Regular Respiration Rate 16 /min Comments: Pattern: Unlabored BP Systolic 115 mm[Hg] Comments: Patient Position: Sitting; Cuff Location: Left Arm; Cuff Size: Standard BP Diastolic 64 mm[Hg] Comments: Patient Position: Sitting; Cuff Location: Left Arm; Cuff Size: Standard Weight 142 lb Height 62 in Body Mass Index Calculated 25.97 kg/m2 Body Surface Area Calculated 1.65 m2 :04 Temperature 97.9 f Comments: Method: Oral Pulse 82 /min Comments: Pattern: Regular Respiration Rate 20 /min Comments: Pattern: Unlabored BP Systolic 126 mm[Hg] Comments: Patient Position: Sitting; Cuff Location: Left Arm; Cuff Size: Large BP Diastolic 84 mm[Hg] Comments: Patient Position: Sitting; Cuff Location: Left Arm; Cuff Size: Large Weight 153 lb Height 62 in Body Mass Index Calculated 27.98 kg/m2 Body Surface Area Calculated 1.71 m2 :37 Weight 153 lb Height 62 in Body Mass Index Calculated 27.98 kg/m2 Body Surface Area Calculated 1.71 m2 :40 Temperature 98.5 f Comments: Method: Oral Pulse 93 /min Comments: Pattern: Regular Respiration Rate 16 /min Comments: Pattern: Unlabored O2 SAT 97 % Comments: Room air BP Systolic 126 mm[Hg] Comments: Patient Position: Sitting; Cuff Location: Left Arm; Cuff Size: Standard BP Diastolic 82 mm[Hg] Comments: Patient Position: Sitting; Cuff Location: Left Arm; Cuff Size: Standard Weight 153 lb Height 62 in Body Mass Index Calculated 27.98 kg/m2 Body Surface Area Calculated 1.71 m2 :46 Temperature 98.6 f Comments: Method: Oral Pulse 76 /min Comments: Pattern: Regular Respiration Rate 18 /min Comments: Pattern: Unlabored BP Systolic 124 mm[Hg] Comments: Patient Position: Sitting; Cuff Location: Left Arm; Cuff Size: Standard BP Diastolic 84 mm[Hg] Comments: Patient Position: Sitting; Cuff Location: Left Arm; Cuff Size: Standard Weight 153 lb Height 62 in Body Mass Index Calculated 27.98 kg/m2 Body Surface Area Calculated 1.71 m2 :32 Temperature 98.2 f Comments: Method: Oral Pulse 88 /min Comments: Pattern: Regular Respiration Rate 18 /min Comments: Pattern: Unlabored O2 SAT 98 % Comments: Room air BP Systolic 128 mm[Hg] Comments: Patient Position: Sitting; Cuff Location: Left Arm; Cuff Size: Standard BP Diastolic 78 mm[Hg] Comments: Patient Position: Sitting; Cuff Location: Left Arm; Cuff Size: Standard Weight 153 lb Height 62 in Body Mass Index Calculated 27.98 kg/m2 Body Surface Area Calculated 1.71 m2 :52 Temperature 97.6 f Comments: Method: Temporal Pulse 72 /min Comments: Pattern: Regular Respiration Rate 16 /min Comments: Pattern: Unlabored O2 SAT 98 % Comments: Room air BP Systolic 126 mm[Hg] Comments: Patient Position: Sitting; Cuff Location: Left Arm; Cuff Size: Standard BP Diastolic 78 mm[Hg] Comments: Patient Position: Sitting; Cuff Location: Left Arm; Cuff Size: Standard Weight 156 lb Height 62 in Body Mass Index Calculated 28.53 kg/m2 Body Surface Area Calculated 1.72 m2 :21 Temperature 98 f Comments: Method: Oral Pulse 84 /min Comments: Pattern: Regular Respiration Rate 18 /min O2 SAT 98 % Comments: Room air BP Systolic 126 mm[Hg] Comments: Patient Position: Sitting; Cuff Location: Left Arm; Cuff Size: Standard BP Diastolic 80 mm[Hg] Comments: Patient Position: Sitting; Cuff Location: Left Arm; Cuff Size: Standard Weight 156 lb Height 62 in Body Mass Index Calculated 28.53 kg/m2 Body Surface Area Calculated 1.72 m2 :54 Temperature 97.6 f Comments: Method: Temporal Pulse 72 /min Comments: Pattern: Regular Respiration Rate 16 /min Comments: Pattern: Unlabored O2 SAT 98 % Comments: Room air BP Systolic 136 mm[Hg] Comments: Patient Position: Sitting; Cuff Location: Left Arm; Cuff Size: Standard BP Diastolic 82 mm[Hg] Comments: Patient Position: Sitting; Cuff Location: Left Arm; Cuff Size: Standard Weight 156 lb Height 62 in Body Mass Index Calculated 28.53 kg/m2 Body Surface Area Calculated 1.72 m2 :28 Temperature 98.9 f Comments: Method: Oral Pulse 74 /min Comments: Pattern: Regular Respiration Rate 16 /min Comments: Pattern: Unlabored O2 SAT 96 % Comments: Room air BP Systolic 115 mm[Hg] Comments: Patient Position: Sitting; Cuff Location: Left Arm; Cuff Size: Standard BP Diastolic 82 mm[Hg] Comments: Patient Position: Sitting; Cuff Location: Left Arm; Cuff Size: Standard Weight 161 lb Height 62 in Body Mass Index Calculated 29.45 kg/m2 Body Surface Area Calculated 1.74 m2 :07 Temperature 100.1 f Comments: Method: Oral Pulse 98 /min Comments: Pattern: Regular Respiration Rate 20 /min Comments: Pattern: Unlabored O2 SAT 98 % Comments: Room air BP Systolic 126 mm[Hg] Comments: Patient Position: Sitting; Cuff Location: Left Arm; Cuff Size: Standard BP Diastolic 100 mm[Hg] Comments: Patient Position: Sitting; Cuff Location: Left Arm; Cuff Size: Standard Weight 161 lb Height 62 in Body Mass Index Calculated 29.45 kg/m2 Body Surface Area Calculated 1.74 m2 :02 Temperature 99.2 f Comments: Method: Oral Pulse 72 /min Comments: Pattern: Regular Respiration Rate 18 /min Comments: Pattern: Unlabored BP Systolic 123 mm[Hg] Comments: Patient Position: Sitting; Cuff Location: Left Arm; Cuff Size: Standard BP Diastolic 82 mm[Hg] Comments: Patient Position: Sitting; Cuff Location: Left Arm; Cuff Size: Standard Weight 161.4375 lb Height 62 in Body Mass Index Calculated 29.53 kg/m2 Body Surface Area Calculated 1.75 m2 :41 Temperature 98 f Comments: Method: Oral Pulse 80 /min Comments: Pattern: Regular Respiration Rate 26 /min Comments: Pattern: Unlabored BP Systolic 124 mm[Hg] Comments: Patient Position: Sitting; Cuff Location: Left Arm; Cuff Size: Standard BP Diastolic 78 mm[Hg] Comments: Patient Position: Sitting; Cuff Location: Left Arm; Cuff Size: Standard Weight 161 lb Height 62 in Body Mass Index Calculated 29.45 kg/m2 Body Surface Area Calculated 1.74 m2 :16 Temperature 98.4 f Comments: Method: Oral Pulse 88 /min Comments: Pattern: Regular Respiration Rate 20 /min Comments: Pattern: Unlabored BP Systolic 128 mm[Hg] Comments: Patient Position: Sitting; Cuff Location: Left Arm; Cuff Size: Large BP Diastolic 88 mm[Hg] Comments: Patient Position: Sitting; Cuff Location: Left Arm; Cuff Size: Large Weight 160.0625 lb Height 62 in Body Mass Index Calculated 29.28 kg/m2 Body Surface Area Calculated 1.74 m2 :34 Temperature 97.8 f Comments: Method: Oral Pulse 70 /min Comments: Pattern: Regular Respiration Rate 18 /min Comments: Pattern: Unlabored BP Systolic 124 mm[Hg] Comments: Patient Position: Sitting; Cuff Location: Left Arm; Cuff Size: Standard BP Diastolic 82 mm[Hg] Comments: Patient Position: Sitting; Cuff Location: Left Arm; Cuff Size: Standard Weight 154 lb Height 62 in Body Mass Index Calculated 28.17 kg/m2 Body Surface Area Calculated 1.71 m2 :07 Temperature 98.4 f Comments: Method: Oral Pulse 70 /min Comments: Pattern: Regular Respiration Rate 18 /min Comments: Pattern: Unlabored BP Systolic 142 mm[Hg] Comments: Patient Position: Sitting; Cuff Location: Left Arm; Cuff Size: Standard BP Diastolic 100 mm[Hg] Comments: Patient Position: Sitting; Cuff Location: Left Arm; Cuff Size: Standard Weight 158 lb Height 62 in Body Mass Index Calculated 28.9 kg/m2 Body Surface Area Calculated 1.73 m2 :15 Temperature 98.4 f Comments: Method: Oral Pulse 76 /min Comments: Pattern: Regular Respiration Rate 18 /min Comments: Pattern: Unlabored BP Systolic 138 mm[Hg] Comments: Patient Position: Sitting; Cuff Location: Left Arm; Cuff Size: Standard BP Diastolic 86 mm[Hg] Comments: Patient Position: Sitting; Cuff Location: Left Arm; Cuff Size: Standard Weight 154 lb Height 62 in Body Mass Index Calculated 28.17 kg/m2 Body Surface Area Calculated 1.71 m2 :10 Temperature 97.8 f Comments: Method: Oral Pulse 74 /min Comments: Pattern: Regular Respiration Rate 20 /min Comments: Pattern: Unlabored BP Systolic 144 mm[Hg] Comments: Patient Position: Sitting; Cuff Location: Left Arm; Cuff Size: Standard BP Diastolic 110 mm[Hg] Comments: Patient Position: Sitting; Cuff Location: Left Arm; Cuff Size: Standard Weight 154 lb Height 62 in Body Mass Index Calculated 28.17 kg/m2 Body Surface Area Calculated 1.71 m2 :18 Temperature 97.6 f Comments: Method: Oral Pulse 92 /min Comments: Pattern: Regular Respiration Rate 18 /min Comments: Pattern: Unlabored O2 SAT 97 % Comments: Room air BP Systolic 126 mm[Hg] Comments: Patient Position: Sitting; Cuff Location: Left Arm; Cuff Size: Standard BP Diastolic 80 mm[Hg] Comments: Patient Position: Sitting; Cuff Location: Left Arm; Cuff Size: Standard Weight 150 lb Height 62 in Body Mass Index Calculated 27.44 kg/m2 Body Surface Area Calculated 1.69 m2 :57 Pulse 70 /min Comments: Pattern: Regular Respiration Rate 18 /min Comments: Pattern: Unlabored BP Systolic 132 mm[Hg] Comments: Patient Position: Sitting; Cuff Location: Left Arm; Cuff Size: Standard BP Diastolic 84 mm[Hg] Comments: Patient Position: Sitting; Cuff Location: Left Arm; Cuff Size: Standard Weight 150 lb Height 62 in Body Mass Index Calculated 27.44 kg/m2 Body Surface Area Calculated 1.69 m2 :42 Temperature 97.8 f Comments: Method: Oral Pulse 76 /min Comments: Pattern: Regular Respiration Rate 20 /min Comments: Pattern: Unlabored BP Systolic 124 mm[Hg] Comments: Patient Position: Sitting; Cuff Location: Left Arm; Cuff Size: Standard BP Diastolic 86 mm[Hg] Comments: Patient Position: Sitting; Cuff Location: Left Arm; Cuff Size: Standard Weight 150 lb Height 62 in Body Mass Index Calculated 27.44 kg/m2 Body Surface Area Calculated 1.69 m2 :04 Temperature 99.1 f Comments: Method: Oral Pulse 76 /min Comments: Pattern: Regular Respiration Rate 16 /min Comments: Pattern: Unlabored BP Systolic 120 mm[Hg] Comments: Patient Position: Sitting; Cuff Location: Left Arm; Cuff Size: Standard BP Diastolic 80 mm[Hg] Comments: Patient Position: Sitting; Cuff Location: Left Arm; Cuff Size: Standard Weight 152 lb Height 62 in Body Mass Index Calculated 27.8 kg/m2 Body Surface Area Calculated 1.7 m2 :39 BP Systolic 132 mm[Hg] Comments: Patient Position: Sitting; Cuff Location: Left Arm; Cuff Size: Standard BP Diastolic 84 mm[Hg] Comments: Patient Position: Sitting; Cuff Location: Left Arm; Cuff Size: Standard :03 Temperature 98.4 f Comments: Method: Oral Pulse 74 /min Comments: Pattern: Regular Respiration Rate 20 /min Comments: Pattern: Unlabored BP Systolic 164 mm[Hg] Comments: Patient Position: Sitting; Cuff Location: Left Arm; Cuff Size: Standard BP Diastolic 100 mm[Hg] Comments: Patient Position: Sitting; Cuff Location: Left Arm; Cuff Size: Standard Weight 152 lb Height 62 in Body Mass Index Calculated 27.8 kg/m2 Body Surface Area Calculated 1.7 m2 :49 Temperature 99.1 f Comments: Method: Oral Pulse 74 /min Comments: Pattern: Regular Respiration Rate 20 /min Comments: Pattern: Unlabored BP Systolic 130 mm[Hg] Comments: Patient Position: Sitting; Cuff Location: Left Arm; Cuff Size: Standard BP Diastolic 80 mm[Hg] Comments: Patient Position: Sitting; Cuff Location: Left Arm; Cuff Size: Standard Weight 143 lb Height 62 in Body Mass Index Calculated 26.15 kg/m2 Body Surface Area Calculated 1.66 m2 :12 Temperature 97.9 f Comments: Method: Oral Pulse 78 /min Comments: Pattern: Regular Respiration Rate 18 /min Comments: Pattern: Unlabored BP Systolic 160 mm[Hg] Comments: Patient Position: Sitting; Cuff Location: Left Arm; Cuff Size: Standard BP Diastolic 100 mm[Hg] Comments: Patient Position: Sitting; Cuff Location: Left Arm; Cuff Size: Standard Weight 143 lb Height 62 in Body Mass Index Calculated 26.15 kg/m2 Body Surface Area Calculated 1.66 m2 :56 Temperature 98 f Comments: Method: Oral Pulse 70 /min Comments: Pattern: Regular Respiration Rate 18 /min Comments: Pattern: Unlabored BP Systolic 134 mm[Hg] Comments: Patient Position: Sitting; Cuff Location: Left Arm; Cuff Size: Standard BP Diastolic 90 mm[Hg] Comments: Patient Position: Sitting; Cuff Location: Left Arm; Cuff Size: Standard Weight 143 lb Height 62 in Body Mass Index Calculated 26.15 kg/m2 Body Surface Area Calculated 1.66 m2 :15 Temperature 97.9 f Comments: Method: Oral Pulse 90 /min Comments: Pattern: Regular Respiration Rate 18 /min Comments: Pattern: Unlabored BP Systolic 142 mm[Hg] Comments: Patient Position: Sitting; Cuff Location: Left Arm; Cuff Size: Standard BP Diastolic 100 mm[Hg] Comments: Patient Position: Sitting; Cuff Location: Left Arm; Cuff Size: Standard Weight 143 lb Height 62 in Body Mass Index Calculated 26.15 kg/m2 Body Surface Area Calculated 1.66 m2 :54 Temperature 97.9 f Comments: Method: Oral Pulse 78 /min Comments: Pattern: Regular Respiration Rate 18 /min Comments: Pattern: Unlabored BP Systolic 144 mm[Hg] Comments: Patient Position: Sitting; Cuff Location: Left Arm; Cuff Size: Standard BP Diastolic 110 mm[Hg] Comments: Patient Position: Sitting; Cuff Location: Left Arm; Cuff Size: Standard Weight 143 lb Height 62 in Body Mass Index Calculated 26.15 kg/m2 Body Surface Area Calculated 1.66 m2 :01 Temperature 97.6 f Pulse 100 /min Comments: Pattern: Regular Respiration Rate 16 /min Comments: Pattern: Unlabored BP Systolic 178 mm[Hg] Comments: Patient Position: Sitting; Cuff Location: Left Arm; Cuff Size: Standard BP Diastolic 104 mm[Hg] Comments: Patient Position: Sitting; Cuff Location: Left Arm; Cuff Size: Standard Weight 143 lb Height 62 in Body Mass Index Calculated 26.15 kg/m2 Body Surface Area Calculated 1.66 m2 :42 Temperature 98.8 f Pulse 80 /min Comments: Pattern: Regular Respiration Rate 17 /min Comments: Pattern: Unlabored BP Systolic 142 mm[Hg] Comments: Patient Position: Sitting; Cuff Location: Left Arm; Cuff Size: Standard BP Diastolic 88 mm[Hg] Comments: Patient Position: Sitting; Cuff Location: Left Arm; Cuff Size: Standard Weight 130 lb Height 62 in Body Mass Index Calculated 23.78 kg/m2 Body Surface Area Calculated 1.59 m2 :36 Temperature 98.2 f Comments: Method: Oral Pulse 62 /min Comments: Pattern: Regular Respiration Rate 16 /min Comments: Pattern: Unlabored BP Systolic 128 mm[Hg] Comments: Patient Position: Sitting; Cuff Location: Left Arm; Cuff Size: Standard BP Diastolic 78 mm[Hg] Comments: Patient Position: Sitting; Cuff Location: Left Arm; Cuff Size: Standard Weight 138 lb Height 62 in Body Mass Index Calculated 25.24 kg/m2 Body Surface Area Calculated 1.63 m2 :24 Temperature 98.2 f Comments: Method: Oral Pulse 72 /min Comments: Pattern: Regular Respiration Rate 16 /min Comments: Pattern: Unlabored BP Systolic 116 mm[Hg] Comments: Patient Position: Sitting; Cuff Location: Left Arm; Cuff Size: Standard BP Diastolic 66 mm[Hg] Comments: Patient Position: Sitting; Cuff Location: Left Arm; Cuff Size: Standard Weight 138 lb Height 62 in Body Mass Index Calculated 25.24 kg/m2 Body Surface Area Calculated 1.63 m2 :39 Temperature 97.6 f Comments: Method: Oral Pulse 76 /min Comments: Pattern: Regular Respiration Rate 18 /min Comments: Pattern: Unlabored BP Systolic 146 mm[Hg] Comments: Patient Position: Sitting; Cuff Location: Left Arm; Cuff Size: Standard BP Diastolic 86 mm[Hg] Comments: Patient Position: Sitting; Cuff Location: Left Arm; Cuff Size: Standard Weight 138 lb Height 62 in Body Mass Index Calculated 25.24 kg/m2 Body Surface Area Calculated 1.63 m2 :06 Temperature 98.3 f Comments: Method: Oral Pulse 82 /min Comments: Pattern: Regular Respiration Rate 18 /min BP Systolic 134 mm[Hg] Comments: Patient Position: Sitting; Cuff Location: Left Arm; Cuff Size: Standard BP Diastolic 80 mm[Hg] Comments: Patient Position: Sitting; Cuff Location: Left Arm; Cuff Size: Standard Weight 138 lb Height 62 in Body Mass Index Calculated 25.24 kg/m2 Body Surface Area Calculated 1.63 m2 :20 Temperature 97.9 f Comments: Method: Oral Pulse 84 /min Comments: Pattern: Regular Respiration Rate 18 /min Comments: Pattern: Unlabored BP Systolic 146 mm[Hg] Comments: Patient Position: Sitting; Cuff Location: Left Arm; Cuff Size: Standard BP Diastolic 86 mm[Hg] Comments: Patient Position: Sitting; Cuff Location: Left Arm; Cuff Size: Standard Weight 138 lb Height 62 in Body Mass Index Calculated 25.24 kg/m2 Body Surface Area Calculated 1.63 m2 :30 Pulse 78 /min Comments: Pattern: Regular Respiration Rate 18 /min Comments: Pattern: Unlabored BP Systolic 141 mm[Hg] Comments: Patient Position: Sitting; Cuff Location: Left Arm; Cuff Size: Standard BP Diastolic 78 mm[Hg] Comments: Patient Position: Sitting; Cuff Location: Left Arm; Cuff Size: Standard :31 Temperature 98.6 f Pulse 76 /min Comments: Pattern: Regular Respiration Rate 18 /min Comments: Pattern: Unlabored BP Systolic 158 mm[Hg] Comments: Patient Position: Sitting; Cuff Location: Left Arm; Cuff Size: Standard BP Diastolic 92 mm[Hg] Comments: Patient Position: Sitting; Cuff Location: Left Arm; Cuff Size: Standard Weight 137.4375 lb :47 Temperature 98.7 f Comments: Method: Oral Pulse 76 /min Comments: Pattern: Regular Respiration Rate 14 /min Comments: Pattern: Unlabored BP Systolic 140 mm[Hg] Comments: Patient Position: Sitting; Cuff Location: Left Arm; Cuff Size: Large BP Diastolic 80 mm[Hg] Comments: Patient Position: Sitting; Cuff Location: Left Arm; Cuff Size: Large Weight 138 lb Height 62 in Body Mass Index Calculated 25.24 kg/m2 Body Surface Area Calculated 1.63 m2 :56 Temperature 98.1 f Comments: Method: Oral Pulse 78 /min Comments: Pattern: Regular Respiration Rate 18 /min Comments: Pattern: Unlabored BP Systolic 140 mm[Hg] Comments: Patient Position: Sitting; Cuff Location: Left Arm; Cuff Size: Standard BP Diastolic 90 mm[Hg] Comments: Patient Position: Sitting; Cuff Location: Left Arm; Cuff Size: Standard Weight 131 lb Height 62 in Body Mass Index Calculated 23.96 kg/m2 Body Surface Area Calculated 1.6 m2 :28 Temperature 97.6 f Comments: Method: Oral Pulse 76 /min Comments: Pattern: Regular Respiration Rate 18 /min Comments: Pattern: Unlabored BP Systolic 144 mm[Hg] Comments: Patient Position: Sitting; Cuff Location: Left Arm; Cuff Size: Standard BP Diastolic 100 mm[Hg] Comments: Patient Position: Sitting; Cuff Location: Left Arm; Cuff Size: Standard Weight 131 lb Height 62 in Body Mass Index Calculated 23.96 kg/m2 Body Surface Area Calculated 1.6 m2 :20 Temperature 98.4 f Comments: Method: Oral Pulse 76 /min Comments: Pattern: Regular Respiration Rate 16 /min Comments: Pattern: Unlabored BP Systolic 142 mm[Hg] Comments: Patient Position: Sitting; Cuff Location: Left Arm; Cuff Size: Standard BP Diastolic 90 mm[Hg] Comments: Patient Position: Sitting; Cuff Location: Left Arm; Cuff Size: Standard Weight 132.375 lb Height 62 in Body Mass Index Calculated 24.21 kg/m2 Body Surface Area Calculated 1.6 m2 :43 Temperature 98.1 f Comments: Method: Oral Pulse 78 /min Comments: Pattern: Regular Respiration Rate 18 /min Comments: Pattern: Unlabored BP Systolic 146 mm[Hg] Comments: Patient Position: Sitting; Cuff Location: Left Arm; Cuff Size: Standard BP Diastolic 100 mm[Hg] Comments: Patient Position: Sitting; Cuff Location: Left Arm; Cuff Size: Standard Weight 132 lb Height 62 in Body Mass Index Calculated 24.14 kg/m2 Body Surface Area Calculated 1.6 m2 :56 Temperature 97.4 f Comments: Method: Oral Pulse 90 /min Comments: Pattern: Regular Respiration Rate 16 /min Comments: Pattern: Unlabored O2 SAT 97 % Comments: Room air BP Systolic 140 mm[Hg] Comments: Patient Position: Sitting; Cuff Location: Left Arm; Cuff Size: Standard BP Diastolic 84 mm[Hg] Comments: Patient Position: Sitting; Cuff Location: Left Arm; Cuff Size: Standard Weight 132.4375 lb Height 62 in Body Mass Index Calculated 24.22 kg/m2 Body Surface Area Calculated 1.6 m2 :13 Temperature 98.5 f Comments: Method: Oral Pulse 82 /min Comments: Pattern: Regular Respiration Rate 16 /min Comments: Pattern: Unlabored BP Systolic 148 mm[Hg] Comments: Patient Position: Sitting; Cuff Location: Left Arm; Cuff Size: Standard BP Diastolic 90 mm[Hg] Comments: Patient Position: Sitting; Cuff Location: Left Arm; Cuff Size: Standard Weight 113 lb Height 62 in Body Mass Index Calculated 20.67 kg/m2 Body Surface Area Calculated 1.5 m2 :32 Temperature 98.1 f Comments: Method: Oral Pulse 76 /min Comments: Pattern: Regular Respiration Rate 18 /min Comments: Pattern: Unlabored BP Systolic 126 mm[Hg] Comments: Patient Position: Sitting; Cuff Location: Left Arm; Cuff Size: Standard BP Diastolic 84 mm[Hg] Comments: Patient Position: Sitting; Cuff Location: Left Arm; Cuff Size: Standard Weight 113 lb Height 62 in Body Mass Index Calculated 20.67 kg/m2 Body Surface Area Calculated 1.5 m2 :10 Temperature 98.6 f Comments: Method: Oral Pulse 82 /min Comments: Pattern: Regular Respiration Rate 17 /min Comments: Pattern: Unlabored BP Systolic 154 mm[Hg] Comments: Patient Position: Sitting; Cuff Location: Left Arm; Cuff Size: Standard BP Diastolic 92 mm[Hg] Comments: Patient Position: Sitting; Cuff Location: Left Arm; Cuff Size: Standard Weight 113 lb Height 62 in Body Mass Index Calculated 20.67 kg/m2 Body Surface Area Calculated 1.5 m2 :10 BP Systolic 142 mm[Hg] Comments: Patient Position: Sitting; Cuff Location: Left Arm; Cuff Size: Standard BP Diastolic 88 mm[Hg] Comments: Patient Position: Sitting; Cuff Location: Left Arm; Cuff Size: Standard :48 Temperature 98.1 f Comments: Method: Oral Pulse 74 /min Comments: Pattern: Regular Respiration Rate 20 /min Comments: Pattern: Unlabored BP Systolic 170 mm[Hg] Comments: Patient Position: Sitting; Cuff Location: Left Arm; Cuff Size: Standard BP Diastolic 100 mm[Hg] Comments: Patient Position: Sitting; Cuff Location: Left Arm; Cuff Size: Standard Weight 113 lb Height 62 in Body Mass Index Calculated 20.67 kg/m2 Body Surface Area Calculated 1.5 m2 :32 Temperature 97.6 f Comments: Method: Oral Pulse 70 /min Comments: Pattern: Regular Respiration Rate 18 /min Comments: Pattern: Unlabored BP Systolic 118 mm[Hg] Comments: Patient Position: Sitting; Cuff Location: Left Arm; Cuff Size: Standard BP Diastolic 76 mm[Hg] Comments: Patient Position: Sitting; Cuff Location: Left Arm; Cuff Size: Standard Weight 113 lb Height 62 in Body Mass Index Calculated 20.67 kg/m2 Body Surface Area Calculated 1.5 m2 :17 Temperature 97.5 f Pulse 92 /min Comments: Pattern: Regular Respiration Rate 18 /min Comments: Pattern: Unlabored O2 SAT 98 % Comments: Room air BP Systolic 146 mm[Hg] Comments: Patient Position: Sitting; Cuff Location: Left Arm; Cuff Size: Large BP Diastolic 78 mm[Hg] Comments: Patient Position: Sitting; Cuff Location: Left Arm; Cuff Size: Large Height 62 in :00 Temperature 98.1 f Comments: Method: Oral Pulse 76 /min Comments: Pattern: Regular Respiration Rate 16 /min Comments: Pattern: Unlabored BP Systolic 132 mm[Hg] Comments: Patient Position: Sitting; Cuff Location: Left Arm; Cuff Size: Standard BP Diastolic 80 mm[Hg] Comments: Patient Position: Sitting; Cuff Location: Left Arm; Cuff Size: Standard Weight 113 lb :51 Temperature 98.2 f Comments: Method: Oral Pulse 74 /min Comments: Pattern: Regular Respiration Rate 18 /min Comments: Pattern: Unlabored BP Systolic 124 mm[Hg] Comments: Patient Position: Sitting; Cuff Location: Left Arm; Cuff Size: Standard BP Diastolic 80 mm[Hg] Comments: Patient Position: Sitting; Cuff Location: Left Arm; Cuff Size: Standard Weight 113 lb :04 Temperature 98.4 f Comments: Method: Oral Pulse 70 /min Comments: Pattern: Regular Respiration Rate 18 /min Comments: Pattern: Unlabored BP Systolic 128 mm[Hg] Comments: Patient Position: Sitting; Cuff Location: Left Arm; Cuff Size: Standard BP Diastolic 80 mm[Hg] Comments: Patient Position: Sitting; Cuff Location: Left Arm; Cuff Size: Standard :30 Temperature 98.4 f Comments: Method: Oral Pulse 74 /min Comments: Pattern: Regular Respiration Rate 15 /min Comments: Pattern: Unlabored BP Systolic 126 mm[Hg] Comments: Patient Position: Sitting; Cuff Location: Left Arm; Cuff Size: Standard BP Diastolic 84 mm[Hg] Comments: Patient Position: Sitting; Cuff Location: Left Arm; Cuff Size: Standard Weight 113 lb :21 Temperature 97.9 f Comments: Method: Oral Pulse 74 /min Comments: Pattern: Regular Respiration Rate 18 /min Comments: Pattern: Unlabored BP Systolic 118 mm[Hg] Comments: Patient Position: Sitting; Cuff Location: Left Arm; Cuff Size: Standard BP Diastolic 76 mm[Hg] Comments: Patient Position: Sitting; Cuff Location: Left Arm; Cuff Size: Standard Weight 113 lb :27 Pulse 76 /min Comments: Pattern: Regular Respiration Rate 18 /min Comments: Pattern: Unlabored BP Systolic 130 mm[Hg] Comments: Patient Position: Sitting; Cuff Location: Left Arm; Cuff Size: Standard BP Diastolic 78 mm[Hg] Comments: Patient Position: Sitting; Cuff Location: Left Arm; Cuff Size: Standard Weight 113 lb :40 Pulse 78 /min Comments: Pattern: Regular Respiration Rate 18 /min Comments: Pattern: Unlabored BP Systolic 130 mm[Hg] Comments: Patient Position: Sitting; Cuff Location: Left Arm; Cuff Size: Standard BP Diastolic 90 mm[Hg] Comments: Patient Position: Sitting; Cuff Location: Left Arm; Cuff Size: Standard Weight 112.0563 lb :40 Pulse 80 /min Comments: Pattern: Regular Respiration Rate 18 /min Comments: Pattern: Unlabored BP Systolic 118 mm[Hg] Comments: Patient Position: Sitting; Cuff Location: Left Arm; Cuff Size: Standard BP Diastolic 78 mm[Hg] Comments: Patient Position: Sitting; Cuff Location: Left Arm; Cuff Size: Standard Weight 110 lb :55 Temperature 97.5 f Comments: Method: Oral Pulse 100 /min Comments: Pattern: Regular Respiration Rate 16 /min Comments: Pattern: Unlabored BP Systolic 120 mm[Hg] Comments: Patient Position: Sitting; Cuff Location: Left Arm; Cuff Size: Small BP Diastolic 64 mm[Hg] Comments: Patient Position: Sitting; Cuff Location: Left Arm; Cuff Size: Small :59 Temperature 98.3 f Comments: Method: Oral Pulse 72 /min Comments: Pattern: Regular Respiration Rate 18 /min Comments: Pattern: Unlabored BP Systolic 104 mm[Hg] Comments: Patient Position: Sitting; Cuff Location: Left Arm; Cuff Size: Standard BP Diastolic 72 mm[Hg] Comments: Patient Position: Sitting; Cuff Location: Left Arm; Cuff Size: Standard :05 BP Systolic 130 mm[Hg] Comments: Patient Position: Supine; Cuff Location: Right Arm; Cuff Size: Standard BP Diastolic 100 mm[Hg] Comments: Patient Position: Supine; Cuff Location: Right Arm; Cuff Size: Standard :47 Temperature 98.2 f Comments: Method: Oral Pulse 82 /min Comments: Pattern: Regular Respiration Rate 16 /min Comments: Pattern: Unlabored BP Systolic 120 mm[Hg] Comments: Patient Position: Sitting; Cuff Location: Left Arm; Cuff Size: Standard BP Diastolic 74 mm[Hg] Comments: Patient Position: Sitting; Cuff Location: Left Arm; Cuff Size: Standard Weight 120 lb Height 62 in Body Mass Index Calculated 21.95 kg/m2 Body Surface Area Calculated 1.54 m2 :30 Temperature 98.3 f Pulse 84 /min Comments: Pattern: Regular Respiration Rate 16 /min Comments: Pattern: Unlabored BP Systolic 146 mm[Hg] Comments: Patient Position: Sitting; Cuff Location: Left Arm; Cuff Size: Standard BP Diastolic 84 mm[Hg] Comments: Patient Position: Sitting; Cuff Location: Left Arm; Cuff Size: Standard :11 Temperature 98.6 f Comments: Method: Oral Pulse 88 /min Comments: Pattern: Regular Respiration Rate 16 /min Comments: Pattern: Unlabored BP Systolic 118 mm[Hg] Comments: Patient Position: Supine; Cuff Location: Left Arm; Cuff Size: Standard BP Diastolic 72 mm[Hg] Comments: Patient Position: Supine; Cuff Location: Left Arm; Cuff Size: Standard Weight 120 lb Height 62 in Body Mass Index Calculated 21.95 kg/m2 Body Surface Area Calculated 1.54 m2 Head Circumference 0.00 cm :07 Pulse 80 /min Comments: Pattern: Regular Respiration Rate 16 /min Comments: Pattern: Unlabored BP Systolic 116 mm[Hg] Comments: Patient Position: Sitting; Cuff Location: Left Arm; Cuff Size: Standard BP Diastolic 74 mm[Hg] Comments: Patient Position: Sitting; Cuff Location: Left Arm; Cuff Size: Standard Weight 0 lb Height 0 in Head Circumference 0.00 cm :28 Pulse 68 /min Comments: Pattern: Regular Respiration Rate 16 /min Comments: Pattern: Unlabored BP Systolic 104 mm[Hg] Comments: Patient Position: Sitting; Cuff Location: Left Arm; Cuff Size: Standard BP Diastolic 70 mm[Hg] Comments: Patient Position: Sitting; Cuff Location: Left Arm; Cuff Size: Standard Weight 110 lb Height 0 in Head Circumference 0.00 cm :18 Temperature 99.6 f Comments: Method: Oral Pulse 82 /min Comments: Pattern: Regular Respiration Rate 16 /min Comments: Pattern: Unlabored BP Systolic 122 mm[Hg] Comments: Patient Position: Sitting; Cuff Location: Left Arm; Cuff Size: Standard BP Diastolic 80 mm[Hg] Comments: Patient Position: Sitting; Cuff Location: Left Arm; Cuff Size: Standard Weight 110.5625 lb Height 0 in Head Circumference 0.00 cm :09 Pulse 70 /min Comments: Pattern: Regular Respiration Rate 16 /min Comments: Pattern: Unlabored BP Systolic 106 mm[Hg] Comments: Patient Position: Sitting; Cuff Location: Left Arm; Cuff Size: Standard BP Diastolic 74 mm[Hg] Comments: Patient Position: Sitting; Cuff Location: Left Arm; Cuff Size: Standard Weight 114 lb Height 0 in Head Circumference 0.00 cm :45 Temperature 98.4 f Comments: Method: Oral Pulse 70 /min Comments: Pattern: Regular Respiration Rate 16 /min Comments: Pattern: Unlabored BP Systolic 110 mm[Hg] Comments: Patient Position: Sitting; Cuff Location: Left Arm; Cuff Size: Standard BP Diastolic 70 mm[Hg] Comments: Patient Position: Sitting; Cuff Location: Left Arm; Cuff Size: Standard Weight 114 lb Height 0 in Head Circumference 0.00 cm :13 Temperature 98.2 f Comments: Method: Oral Pulse 80 /min Comments: Pattern: Regular Respiration Rate 16 /min Comments: Pattern: Unlabored BP Systolic 112 mm[Hg] Comments: Patient Position: Sitting; Cuff Location: Left Arm; Cuff Size: Standard BP Diastolic 74 mm[Hg] Comments: Patient Position: Sitting; Cuff Location: Left Arm; Cuff Size: Standard Weight 115.1875 lb Height 0 in Head Circumference 0.00 cm :19 Pulse 60 /min Comments: Pattern: Regular Respiration Rate 18 /min Comments: Pattern: Unlabored BP Systolic 102 mm[Hg] Comments: Patient Position: Sitting; Cuff Location: Left Arm; Cuff Size: Standard BP Diastolic 70 mm[Hg] Comments: Patient Position: Sitting; Cuff Location: Left Arm; Cuff Size: Standard Weight 110.4375 lb Height 62 in Body Mass Index Calculated 20.2 kg/m2 Body Surface Area Calculated 1.49 m2 Head Circumference 0.00 cm :08 Temperature 97.7 f Comments: Method: Oral Pulse 76 /min Comments: Pattern: Regular Respiration Rate 16 /min Comments: Pattern: Unlabored BP Systolic 108 mm[Hg] Comments: Patient Position: Sitting; Cuff Location: Left Arm; Cuff Size: Standard BP Diastolic 74 mm[Hg] Comments: Patient Position: Sitting; Cuff Location: Left Arm; Cuff Size: Standard Weight 0 lb Height 0 in Head Circumference 0.00 cm :24 Temperature 98.6 f Comments: Method: Oral Pulse 90 /min Comments: Pattern: Regular Respiration Rate 16 /min Comments: Pattern: Unlabored BP Systolic 104 mm[Hg] Comments: Patient Position: Sitting; Cuff Location: Left Arm; Cuff Size: Standard BP Diastolic 76 mm[Hg] Comments: Patient Position: Sitting; Cuff Location: Left Arm; Cuff Size: Standard Weight 0 lb Height 0 in Head Circumference 0.00 cm :15 Pulse 64 /min Comments: Pattern: Regular Respiration Rate 16 /min Comments: Pattern: Unlabored BP Systolic 102 mm[Hg] Comments: Patient Position: Sitting; Cuff Location: Right Arm; Cuff Size: Standard BP Diastolic 68 mm[Hg] Comments: Patient Position: Sitting; Cuff Location: Right Arm; Cuff Size: Standard Weight 110.4375 lb Height 62 in Body Mass Index Calculated 20.2 kg/m2 Body Surface Area Calculated 1.49 m2 Head Circumference 0.00 cm :55 Temperature 98.4 f Comments: Method: Oral Pulse 72 /min Comments: Pattern: Regular Respiration Rate 18 /min Comments: Pattern: Unlabored BP Systolic 116 mm[Hg] Comments: Patient Position: Sitting; Cuff Location: Left Arm; Cuff Size: Standard BP Diastolic 78 mm[Hg] Comments: Patient Position: Sitting; Cuff Location: Left Arm; Cuff Size: Standard Weight 0 lb Height 0 in Head Circumference 0.00 cm :47 Temperature 98.4 f Comments: Method: Oral Pulse 60 /min Comments: Pattern: Regular Respiration Rate 18 /min Comments: Pattern: Unlabored BP Systolic 114 mm[Hg] Comments: Patient Position: Sitting; Cuff Location: Left Arm; Cuff Size: Standard BP Diastolic 74 mm[Hg] Comments: Patient Position: Sitting; Cuff Location: Left Arm; Cuff Size: Standard Weight 118 lb Height 0 in Head Circumference 0.00 cm :18 Temperature 99.2 f Comments: Method: Oral Pulse 88 /min Comments: Pattern: Regular Respiration Rate 18 /min Comments: Pattern: Unlabored BP Systolic 142 mm[Hg] Comments: Patient Position: Sitting; Cuff Location: Left Arm; Cuff Size: Standard BP Diastolic 78 mm[Hg] Comments: Patient Position: Sitting; Cuff Location: Left Arm; Cuff Size: Standard Weight 116.5625 lb Height 62 in Body Mass Index Calculated 21.32 kg/m2 Body Surface Area Calculated 1.52 m2 Head Circumference 0.00 cm Results Date Description Value Details :24 HgA1C , Office (66204) HgA1C , Office 6.5 % (Normal) Range: 4.6 - 7.1 :45 24 HR UR Creatinine Clearance Comments: [facility] [address] [place], [address] CREAT CLEARANCE 33 ml/min (Abnormal) Range: 100-200 Comments: AMENDED REPORT 01/03/181135 CREAT CLEARANCE previously reported as: 32 L ml/min URINE CREAT 38.7 mg/dL (Normal) EST GFR - AA 33 mL/min (Abnormal) Comments: GFR Calc AMENDED REPORT 01/03/181135 EST GFR - AA previously reported as: 27 L mL/min EST GFR 28 mL/min (Abnormal) Comments: Non- GFR Calc AMENDED REPORT 01/03/181135 EST GFR previously reported as: 27 L mL/min SERUM CREAT 2.0 mg/dL (Abnormal) Range: 0.6-1.0 UR TOTAL VOLUME 2425 mL (Normal) UR COLLECT TIME 24.0 {HOURS} (Normal) :45 ANTINUCLEAR ANTIBODIES DIRECT Comments: [facility] (refer to report for specific site)refer to report for address and phone number TONA-DIRECT Negative (Normal) Comments: Performed at: [address] [id number] Director: Griffin Bnenett PhD, Phone: [phone] :[phone] Urine Comments: [facility] (refer to report for specific site)refer to report for address and phone number [place] [id number] No Eosinophils Seen % (Normal) Comments: <5% few or none seenPerformed at: [address] [id number] Director: Griffin Bennett PhD, Phone: [phone] [id number]-Njg-[id number]:45 Hepatitis C Antibodies Comments: [facility] (refer to report for specific site)refer to report for address and phone number HEP C AB <0.1 {s/co_ratio} (Normal) Range: 0.0-0.9 Comments: Negative: < 0.8 Indeterminate: 0.8 - 0.9 Positive: > 0.9 The CDC recommends that a positive HCV antibody result be followed up with a HCV Nucleic Acid Amplification test (056890). :45 Protein Electro.Ur-Random Comments: [facility] (refer to report for specific site)refer to report for address and phone number NOTE Comment (Normal) Comments: Protein electrophoresis scan will follow via computer,mail, or life assurance representative delivery. M-SPIKE,U % (Normal) Comments: not observed GAMMA GLOB,U 19.0 % (Normal) BETA GLOB,U 25.2 % (Normal) YVZQE-6-OLWG,U 12.2 % (Normal) WQDPP-5-ADGE,U 3.7 % (Normal) ALBUMIN,UR 39.9 % (Normal) PROTEIN,UR 22.0 mg/dL (Normal) :45 Protein Electroph, S Comments: [facility] (refer to report for specific site)refer to report for address and phone number NOTE: Comment (Normal) Comments: The SPE pattern appears essentially unremarkable. Evidenceof monoclonal protein is not apparent.Performed at: [facility] [address] [id number] Director: Griffin Bennett PhD, Phone: [phone] INTERPRETATION Comment (Normal) Comments: Protein electrophoresis scan will follow via computer,mail, or life assurance representative delivery. A/G RATIO 1.2 (Normal) Range: 0.7-1.7 GLOBULIN, TOTAL 3.4 g/dL (Normal) Range: 2.2-3.9 M-SPIKE g/dL (Normal) Comments: Not Observed GAMMA GLOBULIN 1.0 g/dL (Normal) Range: 0.4-1.8 BETA GLOBULIN 1.2 g/dL (Normal) Range: 0.7-1.3 ALPHA-2 GLOBUL 1.0 g/dL (Normal) Range: 0.4-1.0 ALPHA-1 GLOBUL 0.2 g/dL (Normal) Range: 0.0-0.4 ALBUMIN 4.1 g/dL (Normal) Range: 2.9-4.4 PROTEIN,TOTAL 7.5 g/dL (Normal) Range: 6.0-8.5 :45 Protein, Urine 24HR Comments: [facility] [address] [place], [place], [id number] 24hr UR PROTEIN 218.2 {mg/24HR} (Abnormal) URINE PROTEIN 9.0 mg/dL (Normal) UR TOTAL VOLUME 2425 mL (Normal) UR COLLECT TIME 24.0 {HOURS} (Normal) 48-Wnf-92915:45 Serum Creatinine AND GFR Comments: [facility] [address] [place], [place], [address] EST GFR - AA 33 mL/min (Abnormal) Comments: GFR Calc EST GFR 28 mL/min (Abnormal) Comments: Non- GFR Calc CREAT,SERUM 1.99 mg/dL (Abnormal) Range: 0.55-1.02 Comments: The validity of the calculated GFR AND GFRAA in patients over70 years has not been determined. Clinical correlation isessential. 70-Hmd-814302:19 MICROALBUMIN: CREATININE RATIO Comments: PATIENT NOT FASTINGPERFORMED BY: [employer] Xpzlzn5507 [facility] [id number] ([id number]) AND (70838) Alb/Creat Ratio 38.1 {mg/g_creat} (Abnormal) Range: 0.0-30.0 Albumin, Urine 37.2 ug/mL (Normal) Creatinine, Urine 97.6 mg/dL (Normal) 84-Oet-048623:19 Renal function Panel (99932) Comments: PATIENT NOT FASTINGPERFORMED BY: [employer] Sdrxkl3487 [facility] [id number] Albumin 4.5 g/dL (Normal) Range: 3.5-5.5 Phosphorus 4.2 mg/dL (Normal) Range: 2.5-4.5 Calcium 10.2 mg/dL (Normal) Range: 8.7-10.2 Carbon Dioxide, Total 19 mmol/L (Abnormal) Range: 20-29 Comments: Please note reference interval change Chloride 104 mmol/L (Normal) Range: 96-106 Potassium 4.6 mmol/L (Normal) Range: 3.5-5.2 Sodium 141 mmol/L (Normal) Range: 134-144 BUN/Creatinine Ratio 19 (Normal) Range: 9-23 eGFR If Africn Am 36 mL/min/1.73 (Abnormal) eGFR If NonAfricn Am 31 mL/min/1.73 (Abnormal) Creatinine 1.82 mg/dL (Abnormal) Range: 0.57-1.00 BUN 35 mg/dL (Abnormal) Range: 6-24 Glucose 174 mg/dL (Abnormal) Range: 65-99 25-Lfn-764751:08 HgA1C , Office (73919) HgA1C , Office 6.1 % (Normal) Range: 4.6 - 7.1 2-Pgf-891109:10 Comp. Metabolic Panel (14) Comments: PATIENT NOT FASTINGPERFORMED BY: [facility] Jqklux5508 [facility] [id number] ALT (SGPT) 13 [iU]/L (Normal) Range: 0-32 AST (SGOT) 14 [iU]/L (Normal) Range: 0-40 Alkaline Phosphatase 66 [iU]/L (Normal) Range: 39-117 Bilirubin, Total 0.4 mg/dL (Normal) Range: 0.0-1.2 A/G Ratio 1.8 (Normal) Range: 1.2-2.2 Globulin, Total 2.7 g/dL (Normal) Range: 1.5-4.5 Albumin 4.9 g/dL (Normal) Range: 3.5-5.5 Protein, Total 7.6 g/dL (Normal) Range: 6.0-8.5 Calcium 10.3 mg/dL Range: 8.7-10.2 (Abnormal) Carbon Dioxide, Total 19 mmol/L (Normal) Range: 18-29 Comments: Effective December 03, 2017 Carbon Dioxide, Total reference interval will be changing to: Age Male Female 0 days - 30 days 16 - 29 16 - 29 31 days - 1 year 15 - 25 15 - 25 2 years - 5 years 17 - 26 17 - 26 6 y ears - 12 years 19 - 27 19 - 27 >12 years 20 - 29 20 - 29 Chloride 104 mmol/L (Normal) Range: 96-106 Potassium 5.0 mmol/L (Normal) Range: 3.5-5.2 Sodium 145 mmol/L Range: 134-144 (Abnormal) BUN/Creatinine Ratio 22 (Normal) Range: 9-23 eGFR If Africn Am 34 mL/min/1.73 (Abnormal) eGFR If NonAfricn Am 30 mL/min/1.73 (Abnormal) Creatinine 1.88 mg/dL Range: 0.57-1.00 (Abnormal) BUN 41 mg/dL (Abnormal) Range: 6-24 Glucose 121 mg/dL Range: 65-99 (Abnormal) Uric Acid 10.6 mg/dL Comments: PATIENT NOT FASTINGPERFORMED BY: [employer] [id number] :10 (Abnormal) Range: 2.5-7.1 Comments: Therapeutic target for gout patients: <6.0 Vitamin D, 25-Hydroxy 74.8 ng/mL (Normal) Comments: PATIENT NOT FASTINGPERFORMED BY: [employer]Pad6370 [facility] [id number] :10 Range: 30.0-100.0 Comments: Vitamin D deficiency has been defined by the [place] ofMedicine and an Endocrine Society practice guideline as alevel of serum 25-OH vitamin D less than 20 ng/mL (1,2).The Endocrine Society went on to further define vitamin Dinsufficiency as a level between 21 and 29 ng/mL (2).1. IOM ([place] of Medicine). 2010. Dietary reference intakes for calcium and D. [place]: The National Academies Press.2. Oralia MF, Serg BOWEN, Mel FLORSE, et al. Evaluation, treatment, and prevention of vitamin D deficiency: an Endocrine Society clinical practice guideline. JCEM. 2010; 96(7):1911-30. 00-Vbq-409924:12 Microscopic Examination Comments: PATIENT NOT FASTINGPERFORMED BY: [facility] Twbyru3830 [facility] [id number] Bacteria Moderate (Abnormal) Mucus Threads Present (Normal) Crystal Type Calcium Oxalate (Normal) Crystals Present (Abnormal) Cast Type Hyaline casts (Normal) Casts Present {/lpf} (Abnormal) Epithelial Cells (non renal) 0-10 {/hpf} (Normal) Range: 0 - 10 RBC 0-2 {/hpf} (Normal) Range: 0 - 2 WBC 0-5 {/hpf} (Normal) Range: 0 - 5 03-Cpg-877020:12 Metabolic Panel, Comprehensive Comments: PATIENT NOT FASTINGPERFORMED BY: [facility] Uzskgt1051 [facility] [id number] (36111) ALT (SGPT) 14 [iU]/L (Normal) Range: 0-32 AST (SGOT) 12 [iU]/L (Normal) Range: 0-40 Alkaline Phosphatase, S 77 [iU]/L (Normal) Range: 39-117 Bilirubin, Total 0.4 mg/dL (Normal) Range: 0.0-1.2 A/G Ratio 1.8 (Normal) Range: 1.2-2.2 Globulin, Total 2.5 g/dL (Normal) Range: 1.5-4.5 Albumin, Serum 4.5 g/dL (Normal) Range: 3.5-5.5 Protein, Total, Serum 7.0 g/dL (Normal) Range: 6.0-8.5 Calcium, Serum 9.5 mg/dL (Normal) Range: 8.7-10.2 Carbon Dioxide, Total 19 mmol/L (Normal) Range: 18-29 Chloride, Serum 105 mmol/L (Normal) Range: 96-106 Potassium, Serum 4.7 mmol/L (Normal) Range: 3.5-5.2 Sodium, Serum 145 mmol/L (Abnormal) Range: 134-144 BUN/Creatinine Ratio 21 (Normal) Range: 9-23 eGFR If Africn Am 55 mL/min/1.73 (Abnormal) eGFR If NonAfricn Am 48 mL/min/1.73 (Abnormal) Creatinine, Serum 1.27 mg/dL (Abnormal) Range: 0.57-1.00 BUN 27 mg/dL (Abnormal) Range: 6-24 Glucose, Serum 119 mg/dL (Abnormal) Range: 65-99 26-Ohb-609069:12 MICROALBUMIN: CREATININE RATIO Comments: PATIENT NOT FASTINGPERFORMED BY: [facility] [id number] (30293) AND (70513) Alb/Creat Ratio 60.4 {mg/g_creat} (Abnormal) Range: 0.0-30.0 Albumin, Urine 65.4 ug/mL (Normal) Creatinine, Urine 108.2 mg/dL (Normal) 25-Xsg-315144:12 URINALYSIS (17610) Comments: PATIENT NOT FASTINGPERFORMED BY: [facility] [id number] Microscopic Examination See below: (Normal) Comments: Microscopic was indicated and was performed. Nitrite, Urine Positive (Abnormal) Urobilinogen,Semi-Qn 0.2 mg/dL (Normal) Range: 0.2-1.0 Bilirubin Negative (Normal) Occult Blood Negative (Normal) Ketones Negative (Normal) Glucose Negative (Normal) Protein Negative (Normal) WBC Esterase Trace (Abnormal) Appearance Clear (Normal) Urine-Color Yellow (Normal) pH 5.0 (Normal) Range: 5.0-7.5 Specific [place] 1.020 (Normal) Range: 1.005-1.030 12-Uii-952954:12 CBC WITH MANUAL DIFF Comments: PATIENT NOT FASTINGPERFORMED BY: [employer] [id number] Information: NURSE DRAW (19557) Immature Grans (Abs) 0.0 {x10E3/uL} (Normal) Range: 0.0-0.1 Immature Granulocytes 0 % (Normal) Baso (Absolute) 0.0 {x10E3/uL} (Normal) Range: 0.0-0.2 Eos (Absolute) 0.2 {x10E3/uL} (Normal) Range: 0.0-0.4 Monocytes(Absolute) 0.4 {x10E3/uL} (Normal) Range: 0.1-0.9 Lymphs (Absolute) 1.8 {x10E3/uL} (Normal) Range: 0.7-3.1 Neutrophils (Absolute) 5.1 {x10E3/uL} (Normal) Range: 1.4-7.0 Basos 0 % (Normal) Eos 3 % (Normal) Monocytes 5 % (Normal) Lymphs 25 % (Normal) Neutrophils 67 % (Normal) Platelets 217 {x10E3/uL} (Normal) Range: 150-379 RDW 13.7 % (Normal) Range: 12.3-15.4 MCHC 33.2 g/dL (Normal) Range: 31.5-35.7 MCH 29.0 pg (Normal) Range: 26.6-33.0 MCV 87 fL (Normal) Range: 79-97 Hematocrit 35.2 % (Normal) Range: 34.0-46.6 Hemoglobin 11.7 g/dL (Normal) Range: 11.1-15.9 RBC 4.03 {x10E6/uL} (Normal) Range: 3.77-5.28 WBC 7.5 {x10E3/uL} (Normal) Range: 3.4-10.8 :16 HgA1C , Office (61396) HgA1C , Office 6.7 % (Normal) Range: 4.6 - 7.1 :38 HgA1C , Office (67075) HgA1C , Office 6.6 % (Normal) Range: 4.6 - 7.1 :09 CBC (Auto) (02884) Comments: PATIENT NOT FASTINGPERFORMED BY: [facility] Jcfjyf9050 [facility] [id number] Platelets 238 {x10E3/uL} (Normal) Range: 150-379 RDW 14.1 % (Normal) Range: 12.3-15.4 MCHC 33.1 g/dL (Normal) Range: 31.5-35.7 MCH 29.0 pg (Normal) Range: 26.6-33.0 MCV 88 fL (Normal) Range: 79-97 Hematocrit 37.2 % (Normal) Range: 34.0-46.6 Hemoglobin 12.3 g/dL (Normal) Range: 11.1-15.9 RBC 4.24 {x10E6/uL} (Normal) Range: 3.77-5.28 WBC 7.1 {x10E3/uL} (Normal) Range: 3.4-10.8 :09 PARATHORMONE (61789) Comments: PATIENT NOT FASTINGPERFORMED BY: [employer] Awfcfl9017 [facility] [id number] PTH, Intact 32 pg/mL (Normal) Range: 15-65 :09 Renal function Panel (86454) Comments: PATIENT NOT FASTINGPERFORMED BY: [employer] Ybbygt1731 [facility] [id number]; fu 8-25 Albumin, Serum 4.5 g/dL (Normal) Range: 3.5-5.5 Phosphorus, Serum 3.8 mg/dL (Normal) Range: 2.5-4.5 Calcium, Serum 9.5 mg/dL (Normal) Range: 8.7-10.2 Carbon Dioxide, Total 17 mmol/L (Abnormal) Range: 18-29 Chloride, Serum 102 mmol/L (Normal) Range: 96-106 Potassium, Serum 4.7 mmol/L (Normal) Range: 3.5-5.2 Sodium, Serum 142 mmol/L (Normal) Range: 134-144 BUN/Creatinine Ratio 22 (Normal) Range: 9-23 eGFR If Africn Am 55 mL/min/1.73 (Abnormal) eGFR If NonAfricn Am 48 mL/min/1.73 (Abnormal) Creatinine, Serum 1.27 mg/dL (Abnormal) Range: 0.57-1.00 BUN 28 mg/dL (Abnormal) Range: 6-24 Glucose, Serum 288 mg/dL (Abnormal) Range: 65-99 02-Jnc-440484:19 Metabolic Panel, Comprehensive Comments: PERFORMED BY: [employer] Hpjmwh9255 [facility] [id number] (21374) ALT (SGPT) 14 [iU]/L (Normal) Range: 0-32 AST (SGOT) 11 [iU]/L (Normal) Range: 0-40 Alkaline Phosphatase, S 92 [iU]/L (Normal) Range: 39-117 Bilirubin, Total 0.6 mg/dL (Normal) Range: 0.0-1.2 A/G Ratio 1.6 (Normal) Range: 1.2-2.2 Globulin, Total 3.1 g/dL (Normal) Range: 1.5-4.5 Albumin, Serum 5.0 g/dL (Normal) Range: 3.5-5.5 Protein, Total, Serum 8.1 g/dL (Normal) Range: 6.0-8.5 Calcium, Serum 10.8 mg/dL (Abnormal) Range: 8.7-10.2 Carbon Dioxide, Total 20 mmol/L (Normal) Range: 18-29 Chloride, Serum 100 mmol/L (Normal) Range: 96-106 Potassium, Serum 4.5 mmol/L (Normal) Range: 3.5-5.2 Sodium, Serum 144 mmol/L (Normal) Range: 134-144 BUN/Creatinine Ratio 23 (Normal) Range: 9-23 eGFR If Africn Am 64 mL/min/1.73 (Normal) eGFR If NonAfricn Am 55 mL/min/1.73 (Abnormal) Creatinine, Serum 1.13 mg/dL (Abnormal) Range: 0.57-1.00 BUN 26 mg/dL (Abnormal) Range: 6-24 Glucose, Serum 159 mg/dL (Abnormal) Range: 65-99 83-Xzu-725916:19 TSH (13374) Comments: PERFORMED BY: BillMyParentsEast Mountain HospitalBbxvki8682 [facility] [id number] TSH 3.360 {uIU/mL} (Normal) Range: 0.450-4.500 15-Ypb-898736:19 Sed Rate Erythrocyte (73308) Comments: PERFORMED BY: BillMyParentsEast Mountain HospitalScnflp1730 [facility] [id number] Sedimentation Rate-Westergren 14 mm/h (Normal) Range: 0-40 77-Pdt-886711:19 HGB A1C (13330) Comments: PERFORMED BY: [employer] Kfnzak0918 [facility] [id number] Hemoglobin A1c 8.0 % (Abnormal) Range: 4.8-5.6 Comments: . Pre-diabetes: 5.7 - 6.4 Diabetes: >6.4 Glycemic control for adults with diabetes: <7.0 65-Uzz-761665:19 Ferritin (85580) Comments: PERFORMED BY: [employer] Uabumm2044 [facility] [id number] Ferritin, Serum 56 ng/mL (Normal) Range: 15-150 60-Zgs-907352:19 Iron (62797) Comments: PERFORMED BY: [employer] [facility] [id number] Iron, Serum 90 ug/dL (Normal) Range: 27-159 46-Ezm-428024:19 Reticulocyte Count (70545) Comments: PERFORMED BY: [employer] Xpwdqu1349 [facility] [id number] Reticulocyte Count 1.1 % (Normal) Range: 0.6-2.6 72-Urq-154504:19 CBC WITH MANUAL DIFF (16257) Comments: PERFORMED BY: Kofikafelin6370 [facility] [id number] Immature Grans (Abs) 0.0 {x10E3/uL} (Normal) Range: 0.0-0.1 Immature Granulocytes 0 % (Normal) Baso (Absolute) 0.0 {x10E3/uL} (Normal) Range: 0.0-0.2 Eos (Absolute) 0.3 {x10E3/uL} (Normal) Range: 0.0-0.4 Monocytes(Absolute) 0.4 {x10E3/uL} (Normal) Range: 0.1-0.9 Lymphs (Absolute) 1.7 {x10E3/uL} (Normal) Range: 0.7-3.1 Neutrophils (Absolute) 6.0 {x10E3/uL} (Normal) Range: 1.4-7.0 Basos 1 % (Normal) Eos 3 % (Normal) Monocytes 4 % (Normal) Lymphs 21 % (Normal) Neutrophils 71 % (Normal) Platelets 315 {x10E3/uL} (Normal) Range: 150-379 RDW 14.2 % (Normal) Range: 12.3-15.4 MCHC 32.7 g/dL (Normal) Range: 31.5-35.7 MCH 28.6 pg (Normal) Range: 26.6-33.0 MCV 87 fL (Normal) Range: 79-97 Hematocrit 42.5 % (Normal) Range: 34.0-46.6 Hemoglobin 13.9 g/dL (Normal) Range: 11.1-15.9 RBC 4.86 {x10E6/uL} (Normal) Range: 3.77-5.28 WBC 8.4 {x10E3/uL} (Normal) Range: 3.4-10.8 3-Yhs-762123:25 Alcohol, Blood (Medical)-Serum Comments: [facility] Qcevgbrxsl4432 [facility]. [place], [place], [id number] SERUM ETOH < 3.0 mg/dL (Normal) Comments: The serum:whole blood ethanol ratio is approximately 1.14and varies slightly with hematocrit.Medical Alcohol reference interval and critical value innon-tolerant individuals; 50 - 100 Impairment 100 Intoxication 100 - 250 Severe Poisoning 250 - 400 Deep/possible fatal coma 4-Hdy-586910:25 Basic Metabolic Profile (BMP) Comments: [facility] Siwzyqbzpk9120 [facility]. [place], [place], [id number] GAP 10 (Normal) Range: 5-15 CO2 24.0 mmol/L (Normal) Range: 21.0-32.0 CL 106 mmol/L (Normal) Range: 98-107 K 4.0 mmol/L (Normal) Range: 3.5-5.1 NA 140 mmol/L (Normal) Range: 136-145 CA 9.5 mg/dL (Normal) Range: 8.5-10.1 BUN/CRE 18.4 {RATIO} (Normal) Range: 10-20 Estimated CRCL 40.69 ml/min (Normal) EST GFR - AA 57 mL/min (Abnormal) Comments: GFR Calc EST GFR 47 mL/min (Abnormal) Comments: Non- GFR Calc CREAT,SERUM 1.25 mg/dL (Abnormal) Range: 0.55-1.02 Comments: The validity of the calculated GFR AND GFRAA in patients over70 years has not been determined. Clinical correlation isessential. BUN 23 mg/dL (Abnormal) Range: 7-18 GLU 230 mg/dL (Abnormal) Range: 70-110 Comments: Glucose result greater than or equal to 200 mg/dLsuggests DIABETES MELLITUS per A.D.A. criteria. 9-Agh-686942:25 Carboxyhemoglobin Frac (CO) Comments: [facility] [address] [place], [place], [id number] COHb 1.2 % (Normal) Range: 0.0-1.5 Comments: * NON-SMOKER RANGE 1.6 - 5.0% * LIGHT SMOKER RANGE 5.1 - 9.0% * HEAVY SMOKER RANGE :25 CBC W/Diff, Automated Comments: [facility] [address] [place], [place], [id number] Absolute Lymph 1.62 {X10_3/ul} (Normal) Range: 0.83-4.51 Absolute Neut 5.7 {X10_3/uL} (Normal) Range: 2.0-7.7 IM GRAN % 0.200 % (Normal) Range: 0.0-0.9 Comments: IG% - Immature Granulocytes (promyelocytes, myelocytes andmetamyelocytes) > 1% indicates that a LEFT SHIFT is Present. BASO% 0.5 % (Normal) Range: 0-1 EO% 2.6 % (Normal) Range: 0-5 MONO% 5.8 % (Normal) Range: 0-10 LY% 20.1 % (Normal) Range: 19-41 NEUT% 70.8 % (Abnormal) Range: 47-70 MPV 10.2 fL (Normal) Range: 6.2-12.0 PLT 337 K/mm3 (Normal) Range: 150-450 RDW SD 45.7 fL (Abnormal) Range: 35.1-43.9 RDW CV 14.9 % (Abnormal) Range: 11.6-14.6 MCHC 32.9 {g/gl} (Normal) Range: 32-36 MCH 28.1 pg (Normal) Range: 27.0-32.0 MCV 85.4 fL (Normal) Range: 81-99 HCT 42.6 % (Normal) Range: 37-47 HGB 14.0 g/dL (Normal) Range: 12.0-15.0 RBC 4.99 {M/mm3} (Normal) Range: 4.2-5.4 WBC 8.1 K/mm3 (Normal) Range: 4.4-11.0 :25 ,Serum,hCG Quali. Comments: [facility] [address] [place], [address] HCGSQUAL NEGATIVE {Negative} (Normal) Range: 0-9 Nonpreg HCG Qual triggr 2 m[iU]/mL (Normal) 6-Oti-340254:15 Urine Drug Screen (VISTA) Comments: [facility] [address] [place], [address] THC NEGATIVE (Normal) PCP NEGATIVE (Normal) OPIATES NEGATIVE (Normal) METHADONE NEGATIVE (Normal) ECSTACY NEGATIVE (Normal) COCAINE NEGATIVE (Normal) BENZODIAZIPINE NEGATIVE (Normal) BARBITIURATES NEGATIVE (Normal) AMPHETAMINES NEGATIVE (Normal) VISTA UDS PH 6 (Normal) TO BE CONFIRMED (Normal) Comments: CONFIRMATORY TESTING FOR ALL POSITIVE URINE DRUG SCREENRESULTS WILL ONLY BE SENT OUT UPON PHYSICIAN ORDER.VISTA Urine Drug Screen methods provide only preliminaryanalytical test results. A more specific alternate chemicalmethod must be used in order to obtain a confirmedanalytical result. Gas chromatography/mass spectrometery(GC/MS) is the preferred confirmatory method. Clinicalconsideration and profe ssional judgement should be appliedto any drug of abuse test result, particularly whenpreliminary positive results are used.URINE TCA TESTING MUST BE ORDERED SEPARATELY. USE TESTMNEMONIC: MDCA [id number]-Wcw-[id number]:59 CBC (Auto) (13168) Comments: PATIENT NOT FASTINGPERFORMED BY: [facility] Ewzxkn2510 [facility] [id number] Platelets 310 {x10E3/uL} (Normal) Range: 150-379 RDW 18.5 % (Abnormal) Range: 12.3-15.4 MCHC 32.8 g/dL (Normal) Range: 31.5-35.7 MCH 25.8 pg (Abnormal) Range: 26.6-33.0 MCV 79 fL (Normal) Range: 79-97 Hematocrit 35.7 % (Normal) Range: 34.0-46.6 Hemoglobin 11.7 g/dL (Normal) Range: 11.1-15.9 RBC 4.54 {x10E6/uL} (Normal) Range: 3.77-5.28 WBC 6.8 {x10E3/uL} (Normal) Range: 3.4-10.8 38-Cdm-345844:59 Renal function Panel (60343) Comments: PATIENT NOT FASTINGPERFORMED BY: [employer] Priygq1121 [facility] [id number] Albumin, Serum 4.6 g/dL (Normal) Range: 3.5-5.5 Phosphorus, Serum 5.2 mg/dL (Abnormal) Range: 2.5-4.5 Calcium, Serum 10.0 mg/dL (Normal) Range: 8.7-10.2 Carbon Dioxide, Total 20 mmol/L (Normal) Range: 18-29 Chloride, Serum 99 mmol/L (Normal) Range: 96-106 Potassium, Serum 5.1 mmol/L (Normal) Range: 3.5-5.2 Sodium, Serum 142 mmol/L (Normal) Range: 134-144 BUN/Creatinine Ratio 21 (Normal) Range: 9-23 eGFR If Africn Am 68 mL/min/1.73 (Normal) eGFR If NonAfricn Am 59 mL/min/1.73 (Abnormal) Creatinine, Serum 1.07 mg/dL (Abnormal) Range: 0.57-1.00 BUN 22 mg/dL (Normal) Range: 6-24 Glucose, Serum 203 mg/dL (Abnormal) Range: 65-99 :27 HGB A1C (00252) Comments: PERFORMED BY: [employer] Rizqhl3487 [facility] [id number] Hemoglobin A1c 7.6 % (Abnormal) Range: 4.8-5.6 Comments: . Pre-diabetes: 5.7 - 6.4 Diabetes: >6.4 Glycemic control for adults with diabetes: <7.0 :27 METABOLIC PANEL, COMPREHENSIVE Comments: PERFORMED BY: Kofikafelin6370 [facility] [id number] (61014) ALT (SGPT) 16 [iU]/L (Normal) Range: 0-32 AST (SGOT) 21 [iU]/L (Normal) Range: 0-40 Alkaline Phosphatase, S 92 [iU]/L (Normal) Range: 39-117 Bilirubin, Total 0.2 mg/dL (Normal) Range: 0.0-1.2 A/G Ratio 1.5 (Normal) Range: 1.1-2.5 Globulin, Total 3.1 g/dL (Normal) Range: 1.5-4.5 Albumin, Serum 4.8 g/dL (Normal) Range: 3.5-5.5 Protein, Total, Serum 7.9 g/dL (Normal) Range: 6.0-8.5 Calcium, Serum 9.8 mg/dL (Normal) Range: 8.7-10.2 Carbon Dioxide, Total 19 mmol/L (Normal) Range: 18-29 Chloride, Serum 102 mmol/L (Normal) Range: 96-106 Potassium, Serum 5.0 mmol/L (Normal) Range: 3.5-5.2 Sodium, Serum 142 mmol/L (Normal) Range: 134-144 BUN/Creatinine Ratio 20 (Normal) Range: 9-23 eGFR If Africn Am 55 mL/min/1.73 (Abnormal) eGFR If NonAfricn Am 48 mL/min/1.73 (Abnormal) Creatinine, Serum 1.27 mg/dL (Abnormal) Range: 0.57-1.00 BUN 26 mg/dL (Abnormal) Range: 6-24 Glucose, Serum 148 mg/dL (Abnormal) Range: 65-99 9-Bjd-125219:27 CBC with auto diff Comments: PERFORMED BY: [facility]ParentsEast [facility] HospitalYfmdjl9437 [facility] [id number] Information: [id number], (45295) Immature Grans (Abs) 0.0 {x10E3/uL} (Normal) Range: 0.0-0.1 Immature Granulocytes 0 % (Normal) Baso (Absolute) 0.0 {x10E3/uL} (Normal) Range: 0.0-0.2 Eos (Absolute) 0.3 {x10E3/uL} (Normal) Range: 0.0-0.4 Monocytes(Absolute) 0.5 {x10E3/uL} (Normal) Range: 0.1-0.9 Lymphs (Absolute) 2.1 {x10E3/uL} (Normal) Range: 0.7-3.1 Neutrophils (Absolute) 4.2 {x10E3/uL} (Normal) Range: 1.4-7.0 Basos 1 % (Normal) Eos 4 % (Normal) Monocytes 7 % (Normal) Lymphs 29 % (Normal) Neutrophils 59 % (Normal) Platelets 358 {x10E3/uL} (Normal) Range: 150-379 RDW 18.8 % (Abnormal) Range: 12.3-15.4 MCHC 30.8 g/dL (Abnormal) Range: 31.5-35.7 MCH 23.8 pg (Abnormal) Range: 26.6-33.0 MCV 77 fL (Abnormal) Range: 79-97 Hematocrit 36.4 % (Normal) Range: 34.0-46.6 Hemoglobin 11.2 g/dL (Normal) Range: 11.1-15.9 RBC 4.71 {x10E6/uL} (Normal) Range: 3.77-5.28 WBC 7.1 {x10E3/uL} (Normal) Range: 3.4-10.8 :35 Ferritin (85106) Comments: PERFORMED BY: [address] [id number] Ferritin, Serum 14 ng/mL (Abnormal) Range: 15-150 7-Rpe-359669:35 RETICULOCYTE COUNT (40427) Comments: PERFORMED BY: [address] [id number] Reticulocyte Count 1.6 % (Normal) Range: 0.6-2.6 :35 Iron Binding Capacity Comments: PERFORMED BY: [address] [id number] Information: [id number] (TIBC) (37846) Iron Saturation 12 % (Abnormal) Range: 15-55 Iron, Serum 59 ug/dL (Normal) Range: 27-159 UIBC 437 ug/dL (Abnormal) Range: 131-425 Iron Bind.Cap.(TIBC) 496 ug/dL (Abnormal) Range: 250-450 :09 CALCIFEDIOL (16089) Comments: PATIENT WAS FASTINGPERFORMED BY: BillMyParentsEast Mountain HospitalDuqhzy0009 [facility] [id number] Vitamin D, 25-Hydroxy 6.9 ng/mL (Abnormal) Range: 30.0-100.0 Comments: Vitamin D deficiency has been defined by the Holden ofMedicine and an Endocrine Society practice guideline as alevel of serum 25-OH vitamin D less than 20 ng/mL (1,2).The Endocrine Society went on to further define vitamin Dinsufficiency as a level between 21 and 29 ng/mL (2).1. IOM (Holden of Medicine). 2010. Dietary reference intakes for calcium and D. [place]: The National Academies Press.2. Oralia MF, Serg NC, Mel FLORES, et al. Evaluation, treatment, and prevention of vitamin D deficiency: an Endocrine Society clinical practice guideline. JCEM. 2010; 96(7):1911-30. 25-Apr-20161:09 MICROALBUMIN: CREATININE RATIO Comments: PATIENT WAS FASTINGPERFORMED BY: [employer] Mzyhkv1023 [facility] [id number] (75207) AND (37090) Microalb/Creat Ratio 83.0 {mg/g_creat} (Abnormal) Range: 0.0-30.0 Microalbumin, Urine 203.3 ug/mL (Normal) Creatinine, Urine 244.9 mg/dL (Normal) :09 METABOLIC PANEL, COMPREHENSIVE Comments: PATIENT WAS FASTINGPERFORMED BY: [facility] Nyyuln3294 [facility] [id number] (31927) ALT (SGPT) 13 [iU]/L (Normal) Range: 0-32 AST (SGOT) 15 [iU]/L (Normal) Range: 0-40 Alkaline Phosphatase, S 89 [iU]/L (Normal) Range: 39-117 Bilirubin, Total <0.2 mg/dL (Normal) Range: 0.0-1.2 A/G Ratio 1.3 (Normal) Range: 1.1-2.5 Globulin, Total 3.3 g/dL (Normal) Range: 1.5-4.5 Albumin, Serum 4.4 g/dL (Normal) Range: 3.5-5.5 Protein, Total, Serum 7.7 g/dL (Normal) Range: 6.0-8.5 Calcium, Serum 9.9 mg/dL (Normal) Range: 8.7-10.2 Carbon Dioxide, Total 17 mmol/L (Abnormal) Range: 18-29 Chloride, Serum 103 mmol/L (Normal) Range: 97-106 Potassium, Serum 4.5 mmol/L (Normal) Range: 3.5-5.2 Sodium, Serum 141 mmol/L (Normal) Range: 136-144 BUN/Creatinine Ratio 20 (Normal) Range: 9-23 eGFR If Africn Am 58 mL/min/1.73 (Abnormal) eGFR If NonAfricn Am 50 mL/min/1.73 (Abnormal) Creatinine, Serum 1.22 mg/dL (Abnormal) Range: 0.57-1.00 BUN 25 mg/dL (Abnormal) Range: 6-24 Glucose, Serum 151 mg/dL (Abnormal) Range: 65-99 25-Apr-20161:09 CBC with auto diff Comments: PATIENT WAS FASTINGPERFORMED BY: [facility]6370 [facility] [id number] Information: DR HURTADO @[facility] (00845) Immature Grans (Abs) 0.0 {x10E3/uL} (Normal) Range: 0.0-0.1 Immature Granulocytes 0 % (Normal) Baso (Absolute) 0.0 {x10E3/uL} (Normal) Range: 0.0-0.2 Eos (Absolute) 0.2 {x10E3/uL} (Normal) Range: 0.0-0.4 Monocytes(Absolute) 0.5 {x10E3/uL} (Normal) Range: 0.1-0.9 Lymphs (Absolute) 2.2 {x10E3/uL} (Normal) Range: 0.7-3.1 Neutrophils (Absolute) 4.7 {x10E3/uL} (Normal) Range: 1.4-7.0 Basos 1 % (Normal) Eos 3 % (Normal) Monocytes 7 % (Normal) Lymphs 29 % (Normal) Neutrophils 60 % (Normal) Platelets 472 {x10E3/uL} (Abnormal) Range: 150-379 RDW 17.3 % (Abnormal) Range: 12.3-15.4 MCHC 29.5 g/dL (Abnormal) Range: 31.5-35.7 MCH 21.7 pg (Abnormal) Range: 26.6-33.0 MCV 74 fL (Abnormal) Range: 79-97 Hematocrit 28.1 % (Abnormal) Range: 34.0-46.6 Hemoglobin 8.3 g/dL (Abnormal) Range: 11.1-15.9 RBC 3.82 {x10E6/uL} (Normal) Range: 3.77-5.28 WBC 7.7 {x10E3/uL} (Normal) Range: 3.4-10.8 :09 HGB A1C (71223) Comments: PATIENT WAS FASTINGPERFORMED BY: [employer] Xfgkru6625 [facility] [id number] Hemoglobin A1c 7.4 % (Abnormal) Range: 4.8-5.6 Comments: . Pre-diabetes: 5.7 - 6.4 Diabetes: >6.4 Glycemic control for adults with diabetes: <7.0 :03 TSH (THYROID STIMULATING Comments: PATIENT WAS FASTINGPERFORMED BY: [employer] Coipdb3474 [facility] [id number] HORMONE) (57472) TSH 0.837 {uIU/mL} (Normal) Range: 0.450-4.500 :03 CALCIFEDIOL (17773) Comments: PATIENT WAS FASTINGPERFORMED BY: BillMyParentsEast Mountain HospitalQlidit9661 [facility] [id number] Vitamin D, 25-Hydroxy 11.1 ng/mL (Abnormal) Range: 30.0-100.0 Comments: Vitamin D deficiency has been defined by the Holden ofMedicine and an Endocrine Society practice guideline as alevel of serum 25-OH vitamin D less than 20 ng/mL (1,2).The Endocrine Society went on to further define vitamin Dinsufficiency as a level between 21 and 29 ng/mL (2).1. IOM (Holden of Medicine). 2010. Dietary reference intakes for calcium and D. [place]: The National Academies Press.2. Oralia MF, Serg NC, Mel FLORES, et al. Evaluation, treatment, and prevention of vitamin D deficiency: an Endocrine Society clinical practice guideline. JCEM. 2010; 96(7):1911-30. 89-Wvn-269925:41 MICROALBUMIN: CREATININE Comments: PATIENT NOT FASTINGPERFORMED BY: [employer]70 [facility] HospitalTier 1 PerformanceBetsy Johnson Regional Hospital [id number] Information: [id number] RATIO (43122) AND (72811) Microalb/Creat Ratio 266.8 {mg/g_creat} (Abnormal) Range: 0.0-30.0 Microalbumin, Urine 541.3 ug/mL (Normal) Comments: Results confirmed ondilution. Creatinine, Urine 202.9 mg/dL (Normal) :03 METABOLIC PANEL, COMPREHENSIVE Comments: PATIENT WAS FASTINGPERFORMED BY: [employer]6370 [facility] [id number] (22824) ALT (SGPT) 21 [iU]/L (Normal) Range: 0-32 AST (SGOT) 24 [iU]/L (Normal) Range: 0-40 Alkaline Phosphatase, S 109 [iU]/L (Normal) Range: 39-117 Bilirubin, Total <0.2 mg/dL (Normal) Range: 0.0-1.2 A/G Ratio 1.6 (Normal) Range: 1.1-2.5 Globulin, Total 2.8 g/dL (Normal) Range: 1.5-4.5 Albumin, Serum 4.5 g/dL (Normal) Range: 3.5-5.5 Protein, Total, Serum 7.3 g/dL (Normal) Range: 6.0-8.5 Calcium, Serum 9.7 mg/dL (Normal) Range: 8.7-10.2 Carbon Dioxide, Total 19 mmol/L (Normal) Range: 18-29 Chloride, Serum 104 mmol/L (Normal) Range: 97-108 Potassium, Serum 5.0 mmol/L (Normal) Range: 3.5-5.2 Sodium, Serum 141 mmol/L (Normal) Range: 134-144 BUN/Creatinine Ratio 20 (Normal) Range: 9-23 eGFR If Africn Am 69 mL/min/1.73 (Normal) eGFR If NonAfricn Am 60 mL/min/1.73 (Normal) Creatinine, Serum 1.06 mg/dL (Abnormal) Range: 0.57-1.00 BUN 21 mg/dL (Normal) Range: 6-24 Glucose, Serum 224 mg/dL (Abnormal) Range: 65-99 :03 LIPID PANEL (94519) Comments: PATIENT WAS FASTINGPERFORMED BY: [employer]70 [facility] [id number] VLDL Cholesterol Candelario VLDLCH mg/dL (Normal) Range: 5-40 Comments: The calculation for the VLDL cholesterol is not valid whentriglyceride level is >400 mg/dL.Triglyceride result indicated is too high for an accurate LDLcholesterol estimation. HDL Cholesterol 46 mg/dL (Normal) Comments: According to ATP-III Guidelines, HDL-C >59 mg/dL is considered anegative risk factor for CHD. Triglycerides 404 mg/dL (Abnormal) Range: 0-149 Cholesterol, Total 180 mg/dL (Normal) Range: 100-199 :03 CBC with auto diff Comments: PATIENT WAS FASTINGPERFORMED BY: [employer]70 [facility] [id number] Information: [id number],NURSE DRAW (06190) Immature Grans (Abs) 0.0 {x10E3/uL} (Normal) Range: 0.0-0.1 Immature Granulocytes 0 % (Normal) Baso (Absolute) 0.0 {x10E3/uL} (Normal) Range: 0.0-0.2 Eos (Absolute) 0.4 {x10E3/uL} (Normal) Range: 0.0-0.4 Monocytes(Absolute) 0.6 {x10E3/uL} (Normal) Range: 0.1-0.9 Lymphs (Absolute) 2.9 {x10E3/uL} (Normal) Range: 0.7-3.1 Neutrophils (Absolute) 7.0 {x10E3/uL} (Normal) Range: 1.4-7.0 Basos 0 % (Normal) Eos 4 % (Normal) Monocytes 5 % (Normal) Lymphs 26 % (Normal) Neutrophils 65 % (Normal) Platelets 469 {x10E3/uL} (Abnormal) Range: 150-379 RDW 14.7 % (Normal) Range: 12.3-15.4 MCHC 30.7 g/dL (Abnormal) Range: 31.5-35.7 MCH 26.1 pg (Abnormal) Range: 26.6-33.0 MCV 85 fL (Normal) Range: 79-97 Hematocrit 32.9 % (Abnormal) Range: 34.0-46.6 Hemoglobin 10.1 g/dL (Abnormal) Range: 11.1-15.9 RBC 3.87 {x10E6/uL} (Normal) Range: 3.77-5.28 WBC 10.9 {x10E3/uL} (Abnormal) Range: 3.4-10.8 :03 HGB A1C (32691) Comments: PATIENT WAS FASTINGPERFORMED BY: [employer] EducationMiss[facility] [id number] Hemoglobin A1c 8.1 % (Abnormal) Range: 4.8-5.6 Comments: . Pre-diabetes: 5.7 - 6.4 Diabetes: >6.4 Glycemic control for adults with diabetes: <7.0 68-Vjf-274911:36 LIPID PANEL (36174) Comments: PATIENT WAS FASTINGPERFORMED BY: [employer] [facility] HospitalTier 1 PerformanceBetsy [facility] [id number] VLDL Cholesterol Candelario VLDLCH mg/dL (Normal) Range: 5-40 Comments: The calculation for the VLDL cholesterol is not valid whentriglyceride level is >400 mg/dL.Triglyceride result indicated is too high for an accurate LDLcholesterol estimation. HDL Cholesterol 42 mg/dL (Normal) Comments: According to ATP-III Guidelines, HDL-C >59 mg/dL is considered anegative risk factor for CHD. Triglycerides 522 mg/dL (Abnormal) Range: 0-149 Cholesterol, Total 217 mg/dL (Abnormal) Range: 100-199 72-Wtd-663453:36 METABOLIC PANEL, COMPREHENSIVE Comments: PATIENT WAS FASTINGPERFORMED BY: [employer] [facility] [id number] (19904) ALT (SGPT) 31 [iU]/L (Normal) Range: 0-32 AST (SGOT) 36 [iU]/L (Normal) Range: 0-40 Alkaline Phosphatase, S 78 [iU]/L (Normal) Range: 39-117 Bilirubin, Total 0.5 mg/dL (Normal) Range: 0.0-1.2 A/G Ratio 1.7 (Normal) Range: 1.1-2.5 Globulin, Total 2.9 g/dL (Normal) Range: 1.5-4.5 Albumin, Serum 4.8 g/dL (Normal) Range: 3.5-5.5 Protein, Total, Serum 7.7 g/dL (Normal) Range: 6.0-8.5 Calcium, Serum 10.3 mg/dL (Abnormal) Range: 8.7-10.2 Carbon Dioxide, Total 18 mmol/L (Normal) Range: 18-29 Chloride, Serum 102 mmol/L (Normal) Range: 97-108 Potassium, Serum 4.8 mmol/L (Normal) Range: 3.5-5.2 Sodium, Serum 142 mmol/L (Normal) Range: 134-144 BUN/Creatinine Ratio 24 (Abnormal) Range: 9-23 eGFR If Africn Am 63 mL/min/1.73 (Normal) eGFR If NonAfricn Am 54 mL/min/1.73 (Abnormal) Creatinine, Serum 1.16 mg/dL (Abnormal) Range: 0.57-1.00 BUN 28 mg/dL (Abnormal) Range: 6-24 Glucose, Serum 158 mg/dL (Abnormal) Range: 65-99 47-Lsx-751950:36 CBC with auto diff Comments: PATIENT WAS FASTINGPERFORMED BY: LabCoEast Mountain HospitalJoaapx7291 [facility] [id number] Information: [id number] (11613) Immature Grans (Abs) 0.0 {x10E3/uL} (Normal) Range: 0.0-0.1 Immature Granulocytes 0 % (Normal) Baso (Absolute) 0.0 {x10E3/uL} (Normal) Range: 0.0-0.2 Eos (Absolute) 0.1 {x10E3/uL} (Normal) Range: 0.0-0.4 Monocytes(Absolute) 0.2 {x10E3/uL} (Normal) Range: 0.1-0.9 Lymphs (Absolute) 1.9 {x10E3/uL} (Normal) Range: 0.7-3.1 Neutrophils (Absolute) 3.6 {x10E3/uL} (Normal) Range: 1.4-7.0 Basos 1 % (Normal) Eos 2 % (Normal) Monocytes 4 % (Normal) Lymphs 33 % (Normal) Neutrophils 60 % (Normal) Platelets 241 {x10E3/uL} (Normal) Range: 150-379 RDW 14.6 % (Normal) Range: 12.3-15.4 MCHC 33.0 g/dL (Normal) Range: 31.5-35.7 MCH 29.7 pg (Normal) Range: 26.6-33.0 MCV 90 fL (Normal) Range: 79-97 Hematocrit 38.2 % (Normal) Range: 34.0-46.6 Hemoglobin 12.6 g/dL (Normal) Range: 11.1-15.9 RBC 4.24 {x10E6/uL} (Normal) Range: 3.77-5.28 WBC 5.9 {x10E3/uL} (Normal) Range: 3.4-10.8 :10 HgA1C , Office (49079) HgA1C , Office 7.7 % (Abnormal) Range: 4.6 - 7.1 :10 Blood Glucose , Office (50348) Blood Glucose , Office 162 (Normal) 84-Lez-260922:52 Alcohol, Blood (Medical)-Serum Comments: Test performed at:[facility] Potdzxqfag37[address] [facility] [place] [address] SERUM ETOH < 3.0 mg/dL (Normal) Comments: The serum:whole blood ethanol ratio is approximately 1.14and varies slightly with hematocrit.Medical Alcohol reference interval and critical value innon-tolerant individuals; 50 - 100 Impairment 100 Intoxication 100 - 250 Severe Poisoning 250 - 400 Deep/possible fatal coma :52 Basic Metabolic Profile (BMP) Comments: Test performed at:[facility] Cvkudzfxwt5982 [facility] [place] [address] GAP 9 (Normal) Range: 5-15 CO2 22.0 mmol/L (Normal) Range: 21.0-32.0 CL 108 mmol/L (Abnormal) Range: 98-107 K 3.2 mmol/L (Abnormal) Range: 3.5-5.1 Comments: Specimen slightly hemolyzed. Results may be affected. NA 139 mmol/L (Normal) Range: 136-145 CA 8.6 mg/dL (Normal) Range: 8.5-10.1 BUN/CRE 21.0 {RATIO} (Abnormal) Range: 10-20 Estimated CRCL 54.44 ml/min (Normal) EST GFR - AA 75 mL/min (Normal) EST GFR 62 mL/min (Normal) CREAT,SERUM 1.0 mg/dL (Normal) Range: 0.6-1.0 BUN 21 mg/dL (Abnormal) Range: 7-18 GLU 192 mg/dL (Abnormal) Range: 70-110 Comments: Fasting Glucose result greater than or equal to 126 mg/dLsuggests DIABETES MELLITUS per A.D.A. criteria. 71-Bzl-323017:52 CBC W/Diff, Automated Comments: Test performed at:[facility] [address] [place] [address] Absolute Lymph 2.39 {X10_3/ul} (Normal) Range: 0.83-4.51 Absolute Neut 3.8 {X10_3/uL} (Normal) Range: 2.0-7.7 IM GRAN % 0.100 % (Normal) Range: 0.0-0.9 Comments: IG% - Immature Granulocytes (promyelocytes, myelocytes andmetamyelocytes) > 1% indicates that a LEFT SHIFT is Present. BASO% 0.4 % (Normal) Range: 0-1 EO% 5.7 % (Abnormal) Range: 0-5 MONO% 4.3 % (Normal) Range: 0-10 LY% 34.3 % (Normal) Range: 19-41 NEUT% 55.2 % (Normal) Range: 47-70 MPV 9.8 fL (Normal) Range: 6.2-12.0 PLT 332 K/mm3 (Normal) Range: 150-450 RDW SD 42.0 fL (Normal) Range: 35.1-43.9 RDW CV 13.2 % (Normal) Range: 11.6-14.6 MCHC 33.4 {g/gl} (Normal) Range: 32-36 MCH 29.4 pg (Normal) Range: 27.0-32.0 MCV 87.9 fL (Normal) Range: 81-99 HCT 39.2 % (Normal) Range: 37-47 HGB 13.1 g/dL (Normal) Range: 12.0-15.0 RBC 4.46 {M/mm3} (Normal) Range: 4.2-5.4 WBC 7.0 K/mm3 (Normal) Range: 4.4-11.0 :52 ,Serum,hCG Quali. Comments: Test performed at:[facility] [address] [place] [address] HCGSQUAL NEGATIVE {Negative} (Normal) Range: 0-9 Nonpreg HCG Qual triggr 2 m[iU]/mL (Normal) :52 Thyroid Stim Hormone (TSH) Comments: Test performed at:[facility] [address] [place] [address] TSH 0.37 {uIU/mL} (Normal) Range: 0.358-3.74 :44 Urinalysis, Complete Comments: Order Date: 11/05/14How was Urine Obtained? CLEAN CATCHTest performed at:[facility] [address]swfj[address] [place] [address] MUCUS, URINE 0 SEEN {/hpf} (Normal) BACTERIA 0 SEEN {/hpf} (Normal) SQUAM EPI 0-5 SEEN {/hpf} (Normal) Range: 5-10 RBC-UA 0 SEEN {/hpf} (Normal) Range: 0-5 WBC 0 SEEN {/hpf} (Normal) Range: 0-5 LEUK ESTERASE Negative /ul (Normal) OCCULT BLOOD-UR 10 /ul (Abnormal) NITRITE UR Negative (Normal) UROBILI Normal mg/dL (Normal) PROT DIPSTX 100 mg/dL (Abnormal) pH UR 6.0 (Normal) Range: 5.0 - 8.0 SP.GR. DIPSTX 1.020 (Normal) Range: 1.002-1.030 KETONE UR Negative mg/dL (Normal) BILIRUBIN URINE Negative mg/dL (Normal) GLUCOSE, UR 1000 mg/dL (Abnormal) CLARITY Clear (Normal) COLOR Yellow (Normal) 37-Tsg-809080:44 Urine Drug Screen (VISTA) Comments: Test performed at:[facility] [address]ts[address] [place] [address] THC NEGATIVE (Normal) PCP NEGATIVE (Normal) OPIATES NEGATIVE (Normal) METHADONE NEGATIVE (Normal) ECSTACY NEGATIVE (Normal) COCAINE NEGATIVE (Normal) BENZODIAZIPINE NEGATIVE (Normal) BARBITIURATES NEGATIVE (Normal) AMPHETAMINES NEGATIVE (Normal) VISTA UDS PH 6 (Normal) TO BE CONFIRMED (Normal) Comments: CONFIRMATORY TESTING FOR ALL POSITIVE URINE DRUG SCREENRESULTS WILL ONLY BE SENT OUT UPON PHYSICIAN ORDER.VISTA Urine Drug Screen methods provide only preliminaryanalytical test results. A more specific alternate chemicalmethod must be used in order to obtain a confirmedanalytical result. Gas chromatography/mass spectrometery(GC/MS) is the preferred confirmatory method. Clinicalconsideration and profe ssional judgement should be appliedto any drug of abuse test result, particularly whenpreliminary positive results are used.URINE TCA TESTING MUST BE ORDERED SEPARATELY. USE TESTMNEMONIC: [facility] [id number] HgA1C , Office (01920) HgA1C , Office 9.1 % (Abnormal) Range: 4.6 - 7.1 [id number] Blood Glucose , Office (05434) Blood Glucose , Office 175 (Normal) [id number] ALDOS 6.0 ng/dL (Normal) Range: 0.0-30.0 [id number]:25 LYTESU CLU 95 mmol/L (Normal) KU 43.0 mmol/L (Normal) ARIADNE 76 mmol/L (Normal) :25 OS 307 {mOsm/KG} (Abnormal) Range: 275-295 :25 ANDREA 5.0 (Normal) Comments: How was Urine Obtained? CLEAN CATCH Range: 5.0 - 8.0 :25 GIOVANNY 10.09 {ng/mL/hr} (Normal) Comments: Adult Normal SaltIntake:Upright 1.31 - 3.95Supine 0.15 - 2.33Salt Excretion(Na mEq/24 hr):Na= 0 - 30 8.82 - 23.86Na= 30 - 75 4.09 - 7.73Na= 75 - 150 1.44 - 2.80Na= >150 0.39 - 1.31Performed at: - [facility] [id number] [place], [place] [id number] Director: Anthony Wilson MD, Phone: [phone] [id number] Metabolic Panel, Comprehensive Comments: today and in three months (approximately); Test(s) Potassium, Serum called to Arelis Goldberg on 01/14/2014 at 08:28 ESTPATIENT NOT FASTINGPERFORMED BY: [facility] [id number] [facility] [id number] ([id number]) [id number] Information: [id number] ALT (SGPT) 13 [iU]/L (Normal) Range: 0-32 AST (SGOT) 14 [iU]/L (Normal) Range: 0-40 Alkaline Phosphatase, S 76 [iU]/L (Normal) Range: 39-117 Bilirubin, Total 0.2 mg/dL (Normal) Range: 0.0-1.2 A/G Ratio 1.8 (Normal) Range: 1.1-2.5 Globulin, Total 2.7 g/dL (Normal) Range: 1.5-4.5 Albumin, Serum 4.8 g/dL (Normal) Range: 3.5-5.5 Protein, Total, Serum 7.5 g/dL (Normal) Range: 6.0-8.5 Calcium, Serum 10.3 mg/dL (Abnormal) Range: 8.7-10.2 Carbon Dioxide, Total 17 mmol/L (Abnormal) Range: 18-29 Chloride, Serum 107 mmol/L (Normal) Range: 97-108 Potassium, Serum 5.9 mmol/L (Abnormal) Range: 3.5-5.2 Comments: Client Requested Flag BUN/Creatinine Ratio 24 (Abnormal) Range: 9-23 eGFR If Africn Am 48 mL/min/1.73 (Abnormal) Sodium, Serum 139 mmol/L (Normal) Range: 134-144 eGFR If NonAfricn Am 42 mL/min/1.73 (Abnormal) Creatinine, Serum 1.45 mg/dL (Abnormal) Range: 0.57-1.00 BUN 35 mg/dL (Abnormal) Range: 6-24 Glucose, Serum 101 mg/dL (Abnormal) Range: 65-99 97-Nth-069931:18 HgA1C , Office (93064) HgA1C , Office 7.1 % (Normal) Range: 4.6 - 7.1 92-Vas-830646:18 Blood Glucose , Office (54436) Blood Glucose , Office 127 (Normal) 69-Blo-581448:48 BMP GAP 6 (Normal) Range: 5-15 CO2 23.0 mmol/L (Normal) Range: 21.0-32.0 CL 108 mmol/L (Abnormal) Range: 98-107 K 4.7 mmol/L (Normal) Range: 3.5-5.1 NA 137 mmol/L (Normal) Range: 136-145 BC 29.2 {RATIO} (Abnormal) Range: 10-20 CA 9.3 mg/dL (Normal) Range: 8.5-10.1 GFRAA 56 mL/min (Abnormal) GFR 46 mL/min (Abnormal) CREAT 1.3 mg/dL (Abnormal) Range: 0.6-1.0 BUN 38 mg/dL (Abnormal) Range: 7-18 GLU 115 mg/dL (Abnormal) Range: 70-110 Comments: Fasting Glucose result from 110 to <126 mg/dLsuggests IMPAIRED HOMEOSTASIS per A.D.A. criteria. [id number]-[id number] Metabolic Panel, Basic Comments: Test(s) Potassium, Serum called to Dr Moreno on 11/01/2013 at 01:27 ESTPATIENT NOT FASTINGPERFORMED BY: [facility] HospitalXyvgeb3067 [facility] [id number] Information: [id number] (15195) Calcium, Serum 10.5 mg/dL (Abnormal) Range: 8.7-10.2 Carbon Dioxide, Total 16 mmol/L (Abnormal) Range: 19-28 Chloride, Serum 107 mmol/L (Normal) Range: 97-108 Potassium, Serum 5.6 mmol/L (Abnormal) Range: 3.5-5.2 Comments: Client Requested Flag Sodium, Serum 140 mmol/L (Normal) Range: 134-144 BUN/Creatinine Ratio 39 (Abnormal) Range: 9-23 eGFR If Africn Am 57 mL/min/1.73 (Abnormal) eGFR If NonAfricn Am 49 mL/min/1.73 (Abnormal) Creatinine, Serum 1.26 mg/dL (Abnormal) Range: 0.57-1.00 BUN 49 mg/dL (Abnormal) Range: 6-24 Glucose, Serum 111 mg/dL (Abnormal) Range: 65-99 3-Qrn-615474:49 Urinalysis, Office (19390) UA - PROTEIN Trace mg/dL (Normal) UA - LEUKOCYTE ESTERASE Negative (Normal) UA - NITRITE Negative (Normal) UA - PH 6.0 (Normal) UA - BLOOD Negative (Normal) UA - SPECIFIC GRAVITY 1.025 (Normal) UA - KETONES Negative mg/dL (Normal) UA - BILIRUBIN Negative (Normal) UA - GLUCOSE Negative (Normal) :05 CUUR Comments: Order Date: 10/28/13 URC See Note (Normal) Comments: ORGANISM 1: Presumptive E. coliColony Count 11,000-25,000 Presumptive E. coli: REACTIONAmoxacillin/Clavulanic Acid $ <=2 SAmpicillin $ <=2 SAmpicillin/Sulbactam $ <=2 SCefazolin $ <=4 SCefepime $$ <=1 SCeft riaxone $$ <=1 SCiprofloxacin $ <=0.25 SESBL - Ertapenim $$$ <=0.5 SGentamicin $ <=1 SImipenem *NF $$ <=0.25 SLevofloxacin $ <=0.12 SNitrofurantoin $ <= 16 SPiperacillin/Tazobactam $$ <=4 STobramycin $ <=1 STrimethoprim/Sulfametho $ <=20 S(NF) indicates non-formulary d rug at [facility]. Approval by Infectious DiseaseSpecialist required before non-formulary drugs may beordered and/or dispensed. 4-Fvj-[id number]:11 UA Comments: Order Date: 10/27/13How was Urine Obtained? SCALEMAN TO SPECIFY UMUC 0 SEEN {/hpf} (Normal) UBAC 0 SEEN {/hpf} (Normal) UEPIS 0-5 SEEN {/hpf} (Normal) Range: 5-10 URBC 0-5 SEEN {/hpf} (Normal) Range: 0-5 UWBC 5-10 SEEN {/hpf} (Normal) Range: 0-5 CARLOS 100 /ul (Abnormal) UOB 25 /ul (Abnormal) DAVID Negative (Normal) UROBU Normal mg/dL (Normal) uPROTU 30 mg/dL (Abnormal) ANDREA 5.0 (Normal) Range: 5.0 - 8.0 SGU 1.020 (Normal) Range: 1.002-1.030 KETU Negative mg/dL (Normal) BILIU Negative mg/dL (Normal) GLUR 100 mg/dL (Abnormal) UCLAR Clear (Normal) UCOL Yellow (Normal) :56 BMP Comments: Specimen is moderately hemolyzed, the presence of hemoglobincan falsely elevate results. Collection of a new specimen issuggested if clinically indicated. GAP 8 (Normal) Range: 5-15 CO2 21.0 mmol/L (Normal) Range: 21.0-32.0 CL 105 mmol/L (Normal) Range: 98-107 K 5.9 mmol/L (Abnormal) Range: 3.5-5.1 Comments: Specimen is moderately hemolyzed, the presence of hemoglobincan falsely elevate results. Collection of a new specimen issuggested if clinically indicated. NA 134 mmol/L (Abnormal) Range: 136-145 CA 10.0 mg/dL (Normal) Range: 8.5-10.1 BC 28.8 {RATIO} (Abnormal) Range: 10-20 GFRAA 97 mL/min (Normal) GFR 80 mL/min (Normal) CREAT 0.8 mg/dL (Normal) Range: 0.6-1.0 BUN 23 mg/dL (Abnormal) Range: 7-18 GLU 173 mg/dL (Abnormal) Range: 70-110 Comments: Fasting Glucose result greater than or equal to 126 mg/dLsuggests DIABETES MELLITUS per A.D.A. criteria. :56 CBCD ANC 8.6 {X10_3/uL} (Abnormal) Range: 2.0-7.7 IG% 0.200 % (Normal) Range: 0.0-0.9 Comments: IG% - Immature Granulocytes (promyelocytes, myelocytes andmetamyelocytes) > 1% indicates that a LEFT SHIFT is Present. B% 0.3 % (Normal) Range: 0-1 E% 1.2 % (Normal) Range: 0-5 M% 4.2 % (Normal) Range: 0-10 L% 15.8 % (Abnormal) Range: 19-41 N% 78.3 % (Abnormal) Range: 47-70 MPV 9.1 fL (Normal) Range: 6.2-12.0 PLT 326 K/mm3 (Normal) Range: 150-450 RDWSD 39.0 fL (Normal) Range: 35.1-43.9 RDWCV 12.1 % (Normal) Range: 11.6-14.6 MCHC 34.9 {g/gl} (Normal) Range: 32-36 MCH 31.0 pg (Normal) Range: 27.0-32.0 MCV 89.0 fL (Normal) Range: 81-99 HCT 38.7 % (Normal) Range: 37-47 HGB 13.5 g/dL (Normal) Range: 12.0-15.0 RBC 4.35 {M/mm3} (Normal) Range: 4.2-5.4 WBC 11.0 K/mm3 (Normal) Range: 4.4-11.0 :28 LA 1.7 mmol/L (Normal) Range: 0.4-2.0 :39 BMP GAP 12 (Normal) Range: 5-15 CL 108 mmol/L (Abnormal) Range: 98-107 CO2 14.0 mmol/L (Abnormal) Range: 21.0-32.0 K 5.3 mmol/L (Abnormal) Range: 3.5-5.1 NA 134 mmol/L (Abnormal) Range: 136-145 CA 10.5 mg/dL (Abnormal) Range: 8.5-10.1 BC 40.0 {RATIO} (Abnormal) Range: 10-20 GFRAA 39 mL/min (Abnormal) GFR 32 mL/min (Abnormal) CREAT 1.8 mg/dL (Abnormal) Range: 0.6-1.0 BUN 72 mg/dL (Abnormal) Range: 7-18 GLU 160 mg/dL (Abnormal) Range: 70-110 Comments: Fasting Glucose result greater than or equal to 126 mg/dLsuggests DIABETES MELLITUS per A.D.A. criteria. [id number]-[id number]:39 CBCD ANC 6.8 {X10_3/uL} (Normal) Range: 2.0-7.7 IG% 0.200 % (Normal) Range: 0.0-0.9 Comments: IG% - Immature Granulocytes (promyelocytes, myelocytes andmetamyelocytes) > 1% indicates that a LEFT SHIFT is Present. B% 0.3 % (Normal) Range: 0-1 E% 1.3 % (Normal) Range: 0-5 M% 4.3 % (Normal) Range: 0-10 L% 21.6 % (Normal) Range: 19-41 N% 72.3 % (Abnormal) Range: 47-70 MPV 9.7 fL (Normal) Range: 6.2-12.0 PLT 348 K/mm3 (Normal) Range: 150-450 RDWSD 41.9 fL (Normal) Range: 35.1-43.9 RDWCV 12.6 % (Normal) Range: 11.6-14.6 MCHC 33.7 {g/gl} (Normal) Range: 32-36 MCH 30.7 pg (Normal) Range: 27.0-32.0 MCV 91.2 fL (Normal) Range: 81-99 HCT 38.3 % (Normal) Range: 37-47 HGB 12.9 g/dL (Normal) Range: 12.0-15.0 RBC 4.20 {M/mm3} (Normal) Range: 4.2-5.4 WBC 9.4 K/mm3 (Normal) Range: 4.4-11.0 :39 TROP < 0.02 ng/mL (Normal) Comments: 'TROP' Serial specimen #1, #2, #3, or #4: 1 Comments: TROPONIN-I EXPECTED VALUES <0.05 NEGATIVE0.06 - 0.59 AT RISK OF SD> OR = 0.60 SUGGEST SD :13 [facility] Comments: Order Date: 10/25/13How was Urine Obtained? CLEAN CATCH UHYC 5-10 SEEN {/lpf} (Normal) Range: 0-5 UMUC 0 SEEN {/hpf} (Normal) UBAC 0 SEEN {/hpf} (Normal) UEPIS 0-5 SEEN {/hpf} (Normal) Range: 5-10 URBC 0 SEEN {/hpf} (Normal) Range: 0-5 UWBC 0-5 SEEN {/hpf} (Normal) Range: 0-5 CARLOS 100 /ul (Abnormal) UOB Negative /ul (Normal) DAVID Negative (Normal) UROBU Normal mg/dL (Normal) uPROTU 15 mg/dL (Abnormal) ANDREA 5.0 (Normal) Range: 5.0 - 8.0 SGU 1.020 (Normal) Range: 1.002-1.030 KETU Negative mg/dL (Normal) BILIU Negative mg/dL (Normal) GLUR Normal mg/dL (Normal) UCLAR Clear (Normal) UCOL Yellow (Normal) 4-Gvb-226869:28 VUDS THCV NEGATIVE (Normal) OPIV NEGATIVE (Normal) PCPV NEGATIVE (Normal) ECSTV NEGATIVE (Normal) METHV NEGATIVE (Normal) BENZOV NEGATIVE (Normal) COCV NEGATIVE (Normal) BARBV NEGATIVE (Normal) AMPV NEGATIVE (Normal) UDSVPH 5 (Normal) CONFVISTA (Normal) Comments: CONFIRMATORY TESTING FOR ALL POSITIVE URINE DRUG SCREENRESULTS WILL ONLY BE SENT OUT UPON PHYSICIAN ORDER.VISTA Urine Drug Screen methods provide only preliminaryanalytical test results. A more specific alternate chemicalmethod must be used in order to obtain a confirmedanalytical result. Gas chromatography/mass spectrometery(GC/MS) is the preferred confirmatory method. Clinicalconsideration and profe ssional judgement should be appliedto any drug of abuse test result, particularly whenpreliminary positive results are used.URINE TCA TESTING MUST BE ORDERED SEPARATELY. USE TESTMNEMONIC: [facility] 68-Vrl-01486:28 CBC (Auto) (39869) Comments: PATIENT WAS FASTINGPERFORMED BY: [facility] Xoqmlv6940 [facility] [id number] Platelets 207 {x10E3/uL} (Normal) Range: 155-379 MCHC 31.9 g/dL (Normal) Range: 31.5-35.7 RDW 13.2 % (Normal) Range: 12.3-15.4 MCH 29.8 pg (Normal) Range: 26.6-33.0 MCV 93 fL (Normal) Range: 79-97 Hematocrit 38.3 % (Normal) Range: 34.0-46.6 Hemoglobin 12.2 g/dL (Normal) Range: 11.1-15.9 RBC 4.10 {x10E6/uL} (Normal) Range: 3.77-5.28 WBC 8.8 {x10E3/uL} (Normal) Range: 3.4-10.8 :28 Lipid Panel (94804) Comments: PATIENT WAS FASTINGPERFORMED BY: Sana SecurityEast Mountain HospitalDobtnr9581 [facility] [id number] VLDL Cholesterol Candelario VLDLCH mg/dL (Normal) Range: 5-40 Comments: The calculation for the VLDL cholesterol is not valid whentriglyceride level is >400 mg/dL.Triglyceride result indicated is too high for an accurate LDLcholesterol estimation. HDL Cholesterol 47 mg/dL (Normal) Comments: According to ATP-III Guidelines, HDL-C >59 mg/dL is considered anegative risk factor for CHD. Cholesterol, Total 228 mg/dL (Abnormal) Range: 100-199 Triglycerides 671 mg/dL (Abnormal) Range: 0-149 :28 Metabolic Panel, Comments: PATIENT WAS FASTINGPERFORMED BY: [employer] Iehafh8847 [facility] [id number] Information: [id number] Comprehensive (77972) ALT (SGPT) 39 [iU]/L (Abnormal) Range: 0-32 AST (SGOT) 70 [iU]/L (Abnormal) Range: 0-40 Alkaline Phosphatase, S 96 [iU]/L (Normal) Range: 39-117 Bilirubin, Total 0.3 mg/dL (Normal) Range: 0.0-1.2 A/G Ratio 1.7 (Normal) Range: 1.1-2.5 Globulin, Total 2.8 g/dL (Normal) Range: 1.5-4.5 Albumin, Serum 4.7 g/dL (Normal) Range: 3.5-5.5 Calcium, Serum 10.1 mg/dL (Normal) Range: 8.7-10.2 Protein, Total, Serum 7.5 g/dL (Normal) Range: 6.0-8.5 Carbon Dioxide, Total 18 mmol/L (Abnormal) Range: 19-28 Chloride, Serum 100 mmol/L (Normal) Range: 97-108 Potassium, Serum 5.2 mmol/L (Normal) Range: 3.5-5.2 Sodium, Serum 135 mmol/L (Normal) Range: 134-144 BUN/Creatinine Ratio 27 (Abnormal) Range: 9-23 eGFR If Africn Am 58 mL/min/1.73 (Abnormal) eGFR If NonAfricn Am 50 mL/min/1.73 (Abnormal) Creatinine, Serum 1.25 mg/dL (Abnormal) Range: 0.57-1.00 BUN 34 mg/dL (Abnormal) Range: 6-24 Glucose, Serum 206 mg/dL (Abnormal) Range: 65-99 :38 HgA1C , Office (44025) HgA1C , Office 10.7 % (Abnormal) Range: 4.6 - 7.1 :11 HgA1C , Office (53246) HgA1C , Office 11.2 % (Abnormal) Range: 4.6 - 7.1 :21 METABOLIC PANEL, Comments: PATIENT WAS FASTINGPERFORMED BY: [facility]CoEast [facility] HospitalSgyowt0153 [facility] [id number] Information: [id number] COMPREHENSIVE (19541) ALT (SGPT) 51 [iU]/L (Abnormal) Range: 0-32 AST (SGOT) 91 [iU]/L (Abnormal) Range: 0-40 Alkaline Phosphatase, S 87 [iU]/L (Normal) Range: 42-107 Bilirubin, Total 0.5 mg/dL (Normal) Range: 0.0-1.2 A/G Ratio 1.4 (Normal) Range: 1.1-2.5 Globulin, Total 3.3 g/dL (Normal) Range: 1.5-4.5 Albumin, Serum 4.6 g/dL (Normal) Range: 3.5-5.5 Protein, Total, Serum 7.9 g/dL (Normal) Range: 6.0-8.5 Calcium, Serum 9.6 mg/dL (Normal) Range: 8.7-10.2 Carbon Dioxide, Total 17 mmol/L (Abnormal) Range: 19-28 Chloride, Serum 95 mmol/L (Abnormal) Range: 97-108 Potassium, Serum 4.4 mmol/L (Normal) Range: 3.5-5.2 Sodium, Serum 132 mmol/L (Abnormal) Range: 134-144 BUN/Creatinine Ratio 25 (Abnormal) Range: 9-23 eGFR If Africn Am 76 mL/min/1.73 (Normal) Creatinine, Serum 0.99 mg/dL (Normal) Range: 0.57-1.00 eGFR If NonAfricn Am 66 mL/min/1.73 (Normal) BUN 25 mg/dL (Abnormal) Range: 6-24 Glucose, Serum 293 mg/dL (Abnormal) Range: 65-99 64-Gmf-49161:21 LIPID PANEL (87421) Comments: PATIENT WAS FASTINGPERFORMED BY: [facility]CoEast [facility] HospitalDtxhbv7057 [facility] [id number] HDL Cholesterol 44 mg/dL (Normal) Comments: According to ATP-III Guidelines, HDL-C >59 mg/dL is considered anegative risk factor for CHD. VLDL Cholesterol Candelario VLDLCH mg/dL (Normal) Range: 5-40 Comments: The calculation for the VLDL cholesterol is not valid whentriglyceride level is >400 mg/dL.Triglyceride result indicated is too high for an accurate LDLcholesterol estimation. Triglycerides 1220 mg/dL (Abnormal) Range: 0-149 Comments: Results confirmed ondilution. Cholesterol, Total 379 mg/dL (Abnormal) Range: 100-199 38-Xpj-28756:00 SINUS/FACIAL BONE Radiology Report See Note Comments: PROCEDURE: CT MAXILLOFACIAL SINUSES REASON FOR EXAM: Female, 52 years old. Chronic sinusitis. RADIATION DOSAGE (If Supplied By Facility): CTDIvol = ( 38.01 ) mGy, DLP=( 427.62 ) mGycm TECHNIQUE: (Normal) The patient was scanned in a multi detector CT scanner.Highresolution axial imaging was performed without the administration ofintravenous contrast material. Sagittal and coronal images werereconstruc colleen. COMPARISON: None. FINDINGS: FRONTAL SINUSES: Hypoplastic development, particularly on the right,withotherwise normal aeration. ETHMOIDAL SINUSES: Normal aerat ion, without mucosal inflammatorydisease. MAXILLARY SINUSES: Normal aeration, without mucosal inflammatorydisease. SPHENOIDAL SINUSES: Normal aeration, without mucosal inflammatorydisease. There is emma vail of the bilateral maxillary infundibuli with normaluncinate processes, ethmoid bullae, and hiatus semilunaris. Normal bilateral middle turbinates. Relative enlargement of the rightinferior turbina te may represent normal nasal cycle versus mild turbinatehypertrophy. Mild leftward deviation of the nasal septum with shallowleftward spur. There is patency of the bilateral nasal airways. Normal vis ualized osseous structures. No demonstrated orbitalabnormality. IMPRESSION:Normal aeration of the paranasal sinuses, with no demonstrated mucosalinflammatory disease . Patent bilateral osteomeatal pathways. Mild deviation of the nasal septum to the left of midline with shallowleftward septal spur. Signed:Olivia Bacon M.D.February 05, 2013 at 11:49:52 AM [id number] Signed DN/DN If you are the referring physician and would like to consult with theradiologist who provided this interpretation, please contact Olivia Hendricks M.D. at [phone]. I f this radiologist is unavailable, youwillbe directed to another radiologist to assist. If you are a patient with a question regarding this report, pleasecontactyour referring physician directly. Profes sional Interpretation Provided By: [employer], Phone , These documents contain legally protected and confidential healthinformation intended only for the use of the indivi dual or entity namedabove. If you are not the intended recipient, you are hereby notifiedthatany disclosure, copying, distribution, or other use of these documents isstrictly prohibited. If you have rec eived this information in error,pleasenotify the sender immediately and arrange for the return or destructionofthese documents. Dictated on 02/05/13 1149 by OLIVIA BACON MD RTranscribed on 02/05/13 1 155 by ITS IMPORTSign by OLIVIA BACON MD on 02/05/13 1156 Sign by: OLIVIA BACON MD 76-Uhp-580366:55 HEPATITIS B SURFACE Comments: PATIENT NOT FASTINGPERFORMED BY: [employer]6370 [facility] [id number] Information: ADD [id number] AND DRAW FEE 99 6127 ANTIBODY (95702) Hep B Surface Ab 0.14 {Index_Value} (Normal) Range: 0.00-0.99 Comments: Status of Immunity Anti-HBs Level Inconsistent with Immunity 0.00 - 0.99 Consistent with Immunity >0.99 . An Index Value of 1.00 is equivalent to 10 mIU/mL. However the magnitude of the Index Value is not indicative of the total amount of antibody present. :55 HEPATITIS B SURFACE ANTIGEN Comments: PATIENT NOT FASTINGPERFORMED BY: [employer]6370 [facility] [id number] (42654) HBsAg Screen Negative (Normal) 10-Zzg-663309:55 Comment: SPRCS (Normal) Comments: PATIENT NOT FASTINGPERFORMED BY: [employer]6370 [facility] [id number] Comments: Non reactive HCV antibody screen is consistent with no HCV infection,unless recent infection is suspected or other evidence exists toindicate HCV infection. :55 HCV Ab w/Rflx to Verification Comments: PATIENT NOT FASTINGPERFORMED BY: [employer]6370 [facility] [id number] HCV Ab 0.1 {s/co_ratio} (Normal) Range: 0.0-0.9 6-Pqh-055118:16 MYOCARD PERF STRESS/REST MULT Radiology Report See Note (Normal) Comments: MYOCARDIAL PERFUSION SCAN TECHNIQUEThe patient was injected with 10.6 mCi of Tc99m Cardiolite andsubsequently rest SPECT Cardiolite nuclear imaging was obtained in thehorizontal long, vertical long, and short axes views. The patientinitially exercised on Raymond protocol for 7 minutes achieving a peakheart rate of 123 bpm (72% predicted maximum heart rate) with a peakblood pressure of 154/94 mmHg and a peak MET capacity of approximately 8METs. The patient then underwent pharmacologic (regadenoson) evaluationwith a peak heart rate of 96 beats per minute (56% predicted maximumheart rate) and a peak bl ood pressure of 140/90 mmHg. The patient wasinjected with 30.4 mCi of Tc99m Cardiolite and subsequently stress SPECTCardiolite nuclear imaging was obtained in the horizontal long, verticallong, and ingrid rt axes views. A gated Cardiolite study at peak stress wasobtained. INTERPRETATIONRest and stress SPECT Cardiolite nuclear imaging demonstrate relativeuniform tracer uptake and myocardial perfusion lisa earing within normallimits. There are similar type findings on the resting and stress polarmap images. there is end systolic thickening and brightening. The gatedCardiolite study demonstrates myocard ial thickening and inward wallmotion. The reported LVEF is 75%. IMPRESSION1. Rest and stress SPECT Cardiolite nuclear imaging demonstrate relativeuniform tracer uptake and myocardial perfusion appearin g within normallimits.2. The gated Cardiolite study reports a LVEF of 75%. Dictated on 04/02/12 1142 by Colton Matthews MDTranscribed on 04/02/12 1216 by Rick SARKAR by Byron OTT,Colton on 4716 Sign by: Colton Matthews MD 79-Rit-269341:00 FLU A+B DIRECT AG, (RAPID) (98191) FLU A+B DIRECT AG, (RAPID) negative (Normal) 31-Lnh-073826:35 Metabolic Panel, Basic Comments: today; PATIENT NOT FASTINGPERFORMED BY: [facility] Xmyseb5241 [facility] [id number] Information: [id number] (63399) Calcium, Serum 10.2 mg/dL (Normal) Range: 8.7-10.2 Carbon Dioxide, Total 22 mmol/L (Normal) Range: 20-32 Chloride, Serum 101 mmol/L (Normal) Range: 97-108 Potassium, Serum 4.0 mmol/L (Normal) Range: 3.5-5.2 Sodium, Serum 139 mmol/L (Normal) Range: 134-144 BUN/Creatinine Ratio 34 (Abnormal) Range: 9-23 eGFR If Africn Am 119 mL/min/1.73 (Normal) Comments: Note: A persistent eGFR <60 mL/min/1.73 m2 (3 months or more) mayindicate chronic kidney disease. An eGFR >59 mL/min/1.73 m2 with anelevated urine protein also may indicate chronic kidney disease.Calculated using CKD-EPI formula. eGFR If NonAfricn Am 103 mL/min/1.73 (Normal) Creatinine, Serum 0.68 mg/dL (Normal) Range: 0.57-1.00 BUN 23 mg/dL (Normal) Range: 6-24 Glucose, Serum 144 mg/dL (Abnormal) Range: 65-99 :00 Mumps Antibodies, IgG Comments: PATIENT NOT FASTINGPERFORMED BY: [employer]6370 [facility] [id number] Mumps Abs, IgG 2.81 {index} (Abnormal) Range: 0.00-0.90 Comments: Negative <0.91 Equivocal 0.91 - 1.09 Positive >1.09 Presence of antibodie s to Mumps is presumptive evidence of immunity except when active infection is suspected. :00 Rubeola Antibodies, IgG Comments: PATIENT NOT FASTINGPERFORMED BY: [employer]6370 [facility] [id number] Rubeola Ab, IgG, EIA 1.82 {index} (Abnormal) Range: 0.00-0.90 Comments: Negative <0.91 Equivocal 0.91 - 1.09 Positive >1.09 . Presence of antibodies to Rubeola is presumptive evidence of immunity except when active infection is suspected. :00 Varicella-Zoster V Ab, IgG Comments: PATIENT NOT FASTINGPERFORMED BY: [employer] Boykve0729 [facility] [id number] Varicella Zoster IgG 1.85 {index} (Abnormal) Range: 0.00-0.90 Comments: Negative <0.91 Equivocal 0.91 - 1.09 Positive >1.09 :00 RUBELLA ANTIBODY (28250) Comments: PATIENT NOT FASTINGPERFORMED BY: [facility]6370 [facility] [id number] Information: PSPN Rubella Antibodies, IgG 22 {IU/mL} (Normal) Comments: Non-immune <5 Equivocal 5 - 9 Immune >9 28-Faj-970822:31 SKIN TEST INTRADERMAL TB (11258) SKIN TEST INTRADERMAL TB neg (Normal) Comments: 0.0mm :59 Lipid Panel (26459) Comments: PATIENT WAS FASTINGPERFORMED BY: [facility]6370 [facility] [id number] Information: [id number]; appt 12/15/10 LDL Cholesterol Calc 164 mg/dL (Abnormal) Range: 0-99 LDL/HDL Ratio 2.3 {ratio_units} Range: 0.0-3.2 (Normal) HDL Cholesterol 72 mg/dL (Normal) Comments: According to ATP-III Guidelines, HDL-C >59 mg/dL is considered anegative risk factor for CHD. Triglycerides 188 mg/dL (Abnormal) Range: 0-149 VLDL Cholesterol Candelario 38 mg/dL (Normal) Range: 5-40 Cholesterol, Total 274 mg/dL (Abnormal) Range: 100-199 C-REACTIVE PROT < 2.90 mg/L (Normal) Comments: Please Note: TROPONIN REFERENCE RANGE CHANGEEffective MAY 25, 2009. :14 Range: 0.0-3.0 Comments: C-Reactive Protein (CRP) provides useful information for thediagnosis, therapy and monitoring of inflammatory processesand associated diseases. For the evaluation of Relative Riskfor Cardiovascular Dise ase, a High Sensitivity CRP (HSCRP)should be ordered. 65-Hkc-868073:14 CBCD,SMEAR DIFF PLT MORPH GIANT (Normal) RED CELL MORPH SeeNote {NORMAL} (Normal) Comments: Result: NORM C+C EOS 2 % (Normal) Range: 0-5 PLT EST SeeNote (Normal) Comments: Result: ADEQUATE MONOCYTE 11 % (Abnormal) Range: 0-10 CELLS COUNTED 100 (Normal) LYMPH 24 % (Normal) Range: 19-41 SEGS 63 % (Normal) Range: 47-70 ABSOLUTE NEUT 3.8 3/uL (Normal) Range: 2.0-7.7 PLT 220 K/mm3 (Normal) Range: 150-450 MCHC 34.8 g/dL (Normal) Range: 32-36 RDW 12.3 % (Normal) Range: 11.6-14.6 MCH 31.2 pg (Normal) Range: 27.0-32.0 MCV 89.7 fL (Normal) Range: 81-99 HCT 40.1 % (Normal) Range: 37-47 HGB 13.9 g/dL (Normal) Range: 12.0-16.0 RBC 4.48 {M/mm3} (Normal) Range: 4.2-5.4 WBC 6.2 K/mm3 (Normal) Range: 4.4-11.0 47-Czn-960787:14 COMP METABOLIC Comments: Please Note: TROPONIN REFERENCE RANGE CHANGEEffective MAY 25, 2009. CL 105 mmol/L (Normal) Range: 98-107 CO2 27.0 mmol/L (Normal) Range: 21.0-32.0 GAP 9 (Normal) Range: 5-15 K 4.6 mmol/L (Normal) Range: 3.5-5.1 NA 141 mmol/L (Normal) Range: 136-145 ALK P 58 U/L (Normal) Range: 50-136 ALT 34 U/L (Normal) Range: 12-78 T BILI 0.50 mg/dL (Normal) Range: 0.00-1.00 A/G 1.1 {RATIO} (Normal) Range: 0.9-2.4 AST 14 U/L (Abnormal) Range: 15-37 CA 9.8 mg/dL (Normal) Range: 8.5-10.1 ALB 4.1 g/dL (Normal) Range: 3.4-5.0 GLOB 3.7 g/dL (Normal) Range: 2.7-4.2 BUN/CRE 22.5 {RATIO} Range: 10-20 (Abnormal) T PROT 7.8 g/dL (Normal) Range: 6.4-8.2 EST GFR 81 mL/min (Normal) EST GFR - AA 98 mL/min (Normal) CREAT,SERUM 0.8 mg/dL (Normal) Range: 0.6-1.0 BUN 18 mg/dL (Normal) Range: 7-18 GLU 80 mg/dL (Normal) Range: 70-110 65-Yjt-659069:1 D-DIMER QUANT 243 ng/mL (Abnormal) Comments: D-Dimer ELEVATED: Additional studies and clinicalassessments are indicated to conclude diagnosis of:Deep Vein Thrombosis (DVT) or Pulmonary Embolism (PE)CRITICAL VALUE REPEATED AND VERIFIED. CALLED TO A 4 BDBSPG25/22/10 1448 CATHY HENDRIX.RESULTS READ BACK BY SIMON . 56-Uox-849518:14 ESR SED RATE 14 mm/h (Normal) Range: 0-20 :14 TROPONIN-I < 0.02 ng/mL (Normal) Comments: Please Note: TROPONIN REFERENCE RANGE CHANGEEffective MAY 25, 2009. Comments: TROPONIN-I EXPECTED VALUES <0.05 NEGATIVE 0.06 - 0.59 AT RISK OF SD > OR = 0.60 SUGGEST SD :14 TSH 0.69 {uIU/mL} (Normal) Comments: Please Note: TROPONIN REFERENCE RANGE CHANGEEffective MAY 25, 2009. Range: 0.358-3.74 :00 CHEST, PA AND LATERAL Radiology Report See Note (Normal) Comments: CLINICAL:Female, 50 years old. Cough and chest pain X-RAY EXAMINATION - CHEST TECHNIQUE:PA and lateral views of the chest. COMPARISON:None. FINDINGS: The lungs are expanded. There is no demonstrated pulmonary parenchymalabnormality. There is no demonstrated pleural abnormality. The heart is normal in size and morphology. Normal mediastinum and thomas. Normal visualized pulmonary arteries. Normal v isualized aortic arch anddescending thoracic aorta. Normal osseous structures. IMPRESSION:Normal x-ray examination of the chest. Dictated on 05/16/10 1323 by SABI JACKSONTranscribed on 05/16/10 132 3 by CHRISTIEMCKESSONSign by SABI JACKSON on 05/18/10 0638 Sign by: SABI JACKSON :41 Lipid Panel (31077) Comments: PATIENT WAS FASTINGPERFORMED BY: [facility]CoEast [facility] HospitalGqhhkz2469 [facility] [id number] Information: [id number] LDL Cholesterol Calc 124 mg/dL (Abnormal) Range: 0-99 LDL/HDL Ratio 2.3 {ratio_units} (Normal) Range: 0.0-3.2 HDL Cholesterol 53 mg/dL (Normal) Comments: According to ATP-III Guidelines, HDL-C >59 mg/dL is considered anegative risk factor for CHD. VLDL Cholesterol Candelario 41 mg/dL (Abnormal) Range: 5-40 Triglycerides 203 mg/dL (Abnormal) Range: 0-149 Cholesterol, Total 218 mg/dL (Abnormal) Range: 100-199 :29 Urinalysis, Office (15217) UA - LEUKOCYTE ESTERASE Negative (Normal) UA - NITRITE Negative (Normal) URINE UROBILINGN BERE TIMED 2 mg/dL (Normal) UA - PROTEIN Negative mg/dL (Normal) UA - PH 6.0 (Normal) UA - BLOOD Negative (Normal) UA - SPECIFIC GRAVITY 1.020 (Normal) UA - KETONES Negative mg/dL (Normal) UA - BILIRUBIN Negative (Normal) UA - GLUCOSE Negative (Normal) :29 Blood Glucose , Office (54407) Blood Glucose , Office 84 (Normal) :29 HgA1C , Office (94524) HgA1C , Office 5.5 % (Normal) Range: 4.6 - 7.1 :43 Urinalysis, Office (97114) UA - LEUKOCYTE ESTERASE Negative (Normal) UA - NITRITE Negative (Normal) URINE UROBILINGN BERE TIMED Normal mg/dL (Normal) UA - PROTEIN Trace mg/dL (Normal) UA - PH 5.0 (Normal) UA - BLOOD Negative (Normal) UA - SPECIFIC GRAVITY 1.025 (Normal) UA - KETONES Negative mg/dL (Normal) UA - BILIRUBIN Negative (Normal) UA - GLUCOSE Negative (Normal) 73-Ane-912241:29 Urinalysis, Office (24422) UA - BILIRUBIN Negative (Normal) UA - BLOOD Negative (Normal) UA - GLUCOSE Negative (Normal) UA - KETONES Negative mg/dL (Normal) UA - LEUKOCYTE ESTERASE Negative (Normal) UA - NITRITE Negative (Normal) UA - PH 6.0 (Normal) UA - PROTEIN Trace mg/dL (Normal) UA - SPECIFIC GRAVITY 1.025 (Normal) URINE UROBILINGN BERE TIMED 2 mg/dL (Normal) 93-Bvk-750135:08 Rapid Flu (40681 x 2) INFLUENZA IMMUNOASSY DIRECT OPTICAL OBSERV negative (Normal) 26-Feb-20099:30 UPPER GI SERIES ONLY Radiology Report See Note (Normal) Comments: Exam Number: [id number] UPPER GI SERIES INDICATIONPatient with epigastric pain off and on for a few months. FINDINGSThe initial double contrast esophagram revealed normal mucosalpattern. No outpouchings , no filling defects and no ulcerations.The stomach demonstrated normal rugal folds and aery epigastrica.There was spontaneous reflux noted with the patient movement to thelevel of the thoracic inlet. There was no ulceration in the stomach. The duodenum appeared normal. The patient was able to pass a 13-mmbarium tablet without difficulty. The patient had poor primarystripping waves and no secondary stripping waves present. Compressionof the duodenal bulb was normal. IMPRESSIONGastroesophageal reflux and presbyesophagus. Reported By: TESHA GUTIERREZ M.D. 53-Drw-921751:26 CBC (Auto) (84234) Comments: PATIENT NOT FASTINGClinical Information: ADD DRAW FEE [id number] AND J0 7381 PERFORMED BY: [facility] [id number] Hematocrit 37.1 % (Normal) Range: 34.0-44.0 Hemoglobin 13.0 g/dL (Normal) Range: 11.5-15.0 MCH 31.5 pg (Normal) Range: 27.0-34.0 MCHC 35.0 g/dL (Normal) Range: 32.0-36.0 MCV 90 fL (Normal) Range: 80-98 Platelets 168 {x10E3/uL} (Normal) Range: 140-415 RBC 4.11 {x10E6/uL} (Normal) Range: 3.80-5.10 RDW 13.4 % (Normal) Range: 11.7-15.0 WBC 4.7 {x10E3/uL} (Normal) Range: 4.0-10.5 39-Cvu-427947:26 HELICOBACTER PYLORI ANTIBODY Comments: PATIENT NOT FASTINGPERFORMED BY: [facility] [id number] ([id number]) H. pylori IgG, Abs <0.9 U/mL (Normal) Range: 0.0-0.8 Comments: Negative <0.9 Indeterminate 0.9 - 1.0 Positive >1.0 33-Msq-511192:20 Rapid Flu (42505 x 2) Comments: done BC INFLUENZA IMMUNOASSY DIRECT OPTICAL OBSERV Negative (Normal) 35-Wvz-027875:13 URINE ALPHONSO CULTURE-BERE COL Comments: PATIENT NOT FASTINGClinical Information: SRC:ROSALIND LOZANO [id number] PERFORMED BY: [employer] [facility] [id number] COUNT ([id number]) Result 1 BETAGB (Normal) Comments: Beta hemolytic Streptococcus, group B2,000 Colonies/mLPenicillin continues to be the drug of choice for infectionscaused by beta hemolytic streptococci in groups A,B,C and G.No penicillin resistance has been described among theseorganisms and surveillance for emerging resistance is notrecommended. (MIR Burnette. Clinical Microbiology Newsletter,1993; DEACON Trammell et al. Diagnostic Microbiology andIn fectious Disease, November,.)Mixed urogenital [id number] Colonies/mL Urine Final report (Normal) Culture,Comprehensive 68-Bgn-344590:52 Urinalysis, Office (38162) UA - BILIRUBIN Negative (Normal) UA - BLOOD Hemolyzed Large Comments: patient on menses (Normal) UA - GLUCOSE Negative (Normal) UA - KETONES Negative mg/dL (Normal) UA - LEUKOCYTE ESTERASE Trace (Normal) UA - NITRITE Negative (Normal) UA - PH 7.0 (Normal) UA - PROTEIN Negative mg/dL (Normal) UA - SPECIFIC GRAVITY 1.020 (Normal) URINE UROBILINGN BERE 2 mg/dL (Normal) TIMED Antinuclear Antibodies 20 AU/mL (Normal) Comments: PERFORMED BY: [employer] [facility] [id number] :[id number] Direct Range: 0-99 Comments: Negative <100 Equivocal 100 - 120 Positive >120 7-Tkw-095380:56 Sjogren's Ab, Anti-SS-A/-SS-B Comments: PERFORMED BY: [employer]70 [facility] [id number] Sjogren's Anti-SS-A 17 AU/mL (Normal) Range: 0-99 Comments: Negative <100 Equivocal 100 - 120 Positive >120 Sjogren's Anti-SS-B 12 AU/mL (Normal) Range: 0-99 Comments: Negative <100 Equivocal 100 - 120 Positive >120 78-Umo-63929:10 METABOLIC PANEL, COMPREHENSIVE Comments: PATIENT NOT FASTINGPERFORMED BY: [facility] Acrfsz0203 [facility]ysAt[facility] [id number] ([id number]) A/G Ratio 1.5 (Normal) Range: 1.1-2.5 Albumin, Serum 4.4 g/dL (Normal) Range: 3.5-5.5 Alkaline Phosphatase, S 46 [iU]/L (Normal) Range: 25-150 ALT (SGPT) 14 [iU]/L (Normal) Range: 0-40 AST (SGOT) 17 [iU]/L (Normal) Range: 0-40 Bilirubin, Total 0.8 mg/dL (Normal) Range: 0.1-1.2 BUN 22 mg/dL (Normal) Range: 5-26 BUN/Creatinine Ratio 24 (Normal) Range: 8-27 Calcium, Serum 9.8 mg/dL (Normal) Range: 8.5-10.6 Carbon Dioxide, Total 22 mmol/L (Normal) Range: 20-32 Chloride, Serum 103 mmol/L (Normal) Range: 97-108 Creatinine, Serum 0.90 mg/dL (Normal) Range: 0.57-1.00 Globulin, Total 3.0 g/dL (Normal) Range: 1.5-4.5 Glom Filt Rate, Est >59 mL/min/1.73 Comments: Please note reference interval change (Normal) Glucose, Serum 89 mg/dL (Normal) Range: 65-99 If -[place]or[place] >59 mL/min/1.73 Comments: Note: Persistent reduction for 3 months or more in an eGFR<60 mL/min/1.73 m2 defines CKD. Patients with eGFR values>/=60 mL/min/1.73 m2 may also have CKD if evidence of persistentproteinur ia is (Normal) present. Additional information may be found [email or web address]. Potassium, Serum 4.4 mmol/L (Normal) Range: 3.5-5.2 Protein, Total, Serum 7.4 g/dL (Normal) Range: 6.0-8.5 Sodium, Serum 139 mmol/L (Normal) Range: 135-145 33-Hua-31968:10 CBC WITH MANUAL DIFF (25185) Comments: if not better in 1 week; PATIENT NOT FASTINGClinical Information: ADD DRAW FEE [id number] ADD J 40574 PERFORMED BY: [employer] [facility] [id number] Baso (Absolute) 0.1 {x10E3/uL} (Normal) Range: 0.0-0.2 Basos 1 % (Normal) Range: 0-3 Eos 2 % (Normal) Range: 0-7 Eos (Absolute) 0.1 {x10E3/uL} (Normal) Range: 0.0-0.4 Hematocrit 39.0 % (Normal) Range: 34.0-44.0 Hemoglobin 13.6 g/dL (Normal) Range: 11.5-15.0 Lymphs 34 % (Normal) Range: 14-46 Lymphs (Absolute) 2.1 {x10E3/uL} (Normal) Range: 0.7-4.5 MCH 31.2 pg (Normal) Range: 27.0-34.0 MCHC 34.9 g/dL (Normal) Range: 32.0-36.0 MCV 90 fL (Normal) Range: 80-98 Monocytes 6 % (Normal) Range: 4-13 Monocytes(Absolute) 0.4 {x10E3/uL} (Normal) Range: 0.1-1.0 Neutrophils 57 % (Normal) Range: 40-74 Neutrophils (Absolute) 3.5 {x10E3/uL} (Normal) Range: 1.8-7.8 Platelets 227 {x10E3/uL} (Normal) Range: 140-415 RBC 4.36 {x10E6/uL} (Normal) Range: 3.80-5.10 RDW 12.3 % (Normal) Range: 11.7-15.0 WBC 6.1 {x10E3/uL} (Normal) Range: 4.0-10.5 4-Glx-640971:20 Metabolic Panel, Comprehensive Comments: PATIENT WAS FASTINGClinical Information: ADD [id number] ADD DRAW FEE [id number] PERFORMED BY: [employer] Bmazfm0871 [facility] [id number] ([id number]) A/G Ratio 1.5 (Normal) Range: 1.1-2.5 Albumin, Serum 4.6 g/dL (Normal) Range: 3.5-5.5 Alkaline Phosphatase, S 56 [iU]/L (Normal) Range: 25-150 ALT (SGPT) 31 [iU]/L (Normal) Range: 0-40 AST (SGOT) 29 [iU]/L (Normal) Range: 0-40 Bilirubin, Total 0.8 mg/dL (Normal) Range: 0.1-1.2 BUN 19 mg/dL (Normal) Range: 5-26 BUN/Creatinine Ratio 19 (Normal) Range: 8-27 Calcium, Serum 9.9 mg/dL (Normal) Range: 8.5-10.6 Carbon Dioxide, Total 26 mmol/L (Normal) Range: 20-32 Chloride, Serum 101 mmol/L (Normal) Range: 96-109 Creatinine, Serum 1.0 mg/dL (Normal) Range: 0.5-1.5 Globulin, Total 3.1 g/dL (Normal) Range: 1.5-4.5 Glucose, Serum 85 mg/dL (Normal) Range: 65-99 Potassium, Serum 4.9 mmol/L (Normal) Range: 3.5-5.5 Protein, Total, Serum 7.7 g/dL (Normal) Range: 6.0-8.5 Sodium, Serum 138 mmol/L (Normal) Range: 135-148 3-Kfk-653812:20 CBC (Auto) (75489) Comments: PATIENT WAS FASTINGPERFORMED BY: [facility]6370 [facility] [id number] Hematocrit 41.5 % (Normal) Range: 34.0-44.0 Hemoglobin 13.8 g/dL (Normal) Range: 11.5-15.0 MCH 30.5 pg (Normal) Range: 27.0-34.0 MCHC 33.2 g/dL (Normal) Range: 32.0-36.0 MCV 92 fL (Normal) Range: 80-98 Platelets 183 {x10E3/uL} (Normal) Range: 140-415 RBC 4.51 {x10E6/uL} (Normal) Range: 3.80-5.10 RDW 12.7 % (Normal) Range: 11.7-15.0 WBC 7.5 {x10E3/uL} (Normal) Range: 4.0-10.5 2-Gfc-429527:20 TSH (67288) Comments: PATIENT WAS FASTINGPERFORMED BY: [facility]CoEast [facility] HospitalPajues3858 [facility] [id number] TSH 0.886 {uIU/mL} (Normal) Range: 0.350-5.500 9-Yxd-181303:20 Lipid Panel (20344) Comments: PATIENT WAS FASTINGPERFORMED BY: [facility]CoEast [facility] HospitalNbusrl5985 [facility] [id number] Cholesterol, Total 266 mg/dL (Abnormal) Range: 100-199 Comment SPRCS (Normal) Comments: HDL cholesterol values >59 mg/dL are associated with reduced cardiacrisk. Comment SPRCS (Normal) Comments: If initial LDL-cholesterol result is >100 mg/dL, assess forrisk factors. HDL Cholesterol 61 mg/dL (Abnormal) Range: 40-59 LDL Cholesterol Calc 165 mg/dL (Abnormal) Range: 0-99 LDL/HDL Ratio 2.7 {ratio_units} (Normal) Range: 0.0-3.2 Triglycerides 199 mg/dL (Abnormal) Range: 0-149 VLDL Cholesterol Candelario 40 mg/dL (Normal) Range: 5-40 Plan of Care Name Dates Details Instructions Diabetes mellitus type II, controlled, with no complications : Eprescribed prescriptions (G8553) Indication: Diabetes mellitus type II, controlled, with no complications Bipolar affective, manic : Eprescribed prescriptions (G8553) Indication: Bipolar affective, manic Anxiety : Hemoglobin A1c Test *: blood sugar level Indication: Anxiety Diabetes mellitus type II, controlled, with no complications : Eprescribed prescriptions (G8553) Indication: Diabetes mellitus type II, controlled, with no complications Diabetes mellitus type II, controlled, with no complications : Eprescribed prescriptions (G8553) Indication: Diabetes mellitus type II, controlled, with no complications Wart : Cryotherapy Indication: Wart Wart : Cryotherapy Indication: Wart Wart : Cryotherapy Indication: Wart Chronic Sinusitis (Renamed from Chronic infection of sinus) : Sinusitis *: sinus infection Indication: Chronic Sinusitis (Renamed from Chronic infection of sinus) Thrush : Follow up if no improvement or if symptoms worsen Indication: Thrush Sinusitis, acute : Allergies: Controlling Your Environment: allergen Indication: Sinusitis, acute Sinusitis, acute : Sinusitis *: sinus infection Indication: Sinusitis, acute Sinusitis, acute : *URI Symptoms Indication: Sinusitis, acute Sinusitis, acute : *Antibiotic Usage Education - Female Indication: Sinusitis, acute Sinusitis, acute : *Antibiotic Usage Education - Female Indication: Sinusitis, acute Bhat's neuroma : foot injections Indication: Bhat's neuroma Pain in joint involving ankle and foot, unspecified laterality : *Trigger Point Injections Indication: Pain in joint involving ankle and foot, unspecified laterality Bronchitis : *URI Treatment Indication: Bronchitis Bronchitis : *URI Symptoms Indication: Bronchitis Bronchitis : *Antibiotic Usage Education - Female Indication: Bronchitis Viral warts, unspecified type : Cryotherapy Indication: Viral warts, unspecified type Bronchitis : *Antibiotic Usage Education - Female Indication: Bronchitis Viral warts, unspecified type : Cryotherapy Indication: Viral warts, unspecified type Other specified viral infection, in conditions classified elsewhere and of unspecified site : *Antibiotic Usage Education - Female Indication: Other specified viral infection, in conditions classified elsewhere and of unspecified site Other specified viral infection, in conditions classified elsewhere and of unspecified site : *URI Treatment Indication: Other specified viral infection, in conditions classified elsewhere and of unspecified site Other specified viral infection, in conditions classified elsewhere and of unspecified site : *URI Symptoms Indication: Other specified viral infection, in conditions classified elsewhere and of unspecified site Benign paroxysmal positional vertigo, unspecified laterality : FOLLOW UP IN 2 WEEKS with DB Indication: Benign paroxysmal positional vertigo, unspecified laterality Bronchitis : *URI Treatment Indication: Bronchitis Bronchitis : *URI Symptoms Indication: Bronchitis Bronchitis : *Antibiotic Usage Education - Female Indication: Bronchitis Cerumen impaction : FOLLOW UP IN 1 WEEK Indication: Cerumen impaction Sinusitis, acute : *Antibiotic Usage Education - Female Indication: Sinusitis, acute Diarrhea (Renamed from D (diarrhea)) : Abd Pain Red Flags Indication: Diarrhea (Renamed from D (diarrhea)) Diarrhea (Renamed from D (diarrhea)) : Diarrhea Education Indication: Diarrhea (Renamed from D (diarrhea)) Chronic serous otitis media, unspecified laterality : *Otitis Externa Education Indication: Chronic serous otitis media, unspecified laterality Planned Observations Magnesium (27218)Indication: Chronic kidney disease, stage 3 On: 85-Mrf-656018:47 Request Renal function Panel (43276)Indication: Chronic kidney disease, stage 3 On: :47 Request TONA (ANTINUCLEAR ANTIBODY) (12578)Indication: Acute renal insufficiency On: :10 Request HEPATITIS C ANTIBODY (58558)Indication: Acute renal insufficiency On: : Request Eosinophil, Urine (16043)Indication: Eosinophilia On: :11 Request SPEP (74392)Indication: Proteinuria (Renamed from Abnormal presence of protein in urine) On: : Request UPEP (56268)Indication: Proteinuria (Renamed from Abnormal presence of protein in urine) On: : Request CREATININE CLEARANCE (01400)Indication: Proteinuria (Renamed from Abnormal presence of protein in urine) On: : Request Total Protein,24 Hour Urine (92439)Indication: Proteinuria (Renamed from Abnormal presence of protein in urine) On: : Request URIC ACID BLOOD (89220)Indication: Abnormal finding of blood chemistry, unspecified On: 58-Pjp-606921:44 Request METABOLIC PANEL, COMPREHENSIVE (04129)Indication: Diabetes mellitus type II, controlled, with no complications On: 84-Fem-649005:43 Request CALCIFIDIOL (06886) VIT D 25Indication: Vitamin D deficiency On: :43 Request Iron (15646)Indication: Anemia On: 0-Bri-890119:31 Request HEMOGLOBIN GLYCLATED (HGB A1C) (53991)Indication: Diabetes mellitus type II, controlled, with no complications On: :05 Request METABOLIC PANEL, COMPREHENSIVE (24705)Indication: Benign essential hypertension (Renamed from Benign essential HTN) On: :04 Request T4, FREE (THYROXINE) (14450)Indication: OVERWEIGHT (Renamed from Excessive fat) On: :03 Request TSH (76914)Indication: OVERWEIGHT (Renamed from Excessive fat) On: :03 Request LIPID PANEL (75231)Indication: Hyperglyceridemia On: :02 Request ALDOSTERONE (48591)Indication: Hyperkalemia On: 81-Aoc-941558:59 Request RENIN (10153)Indication: Hyperkalemia On: 73-Akh-114218:59 Request OSMOLALITY BLOOD (07267)Indication: Hyperkalemia On: 66-Kpn-033546:56 Request CHLORIDE URINE (41291)Indication: Hyperkalemia On: :55 Request POTASSIUM URINE (98180)Indication: Hyperkalemia On: :55 Request SODIUM URINE (46917)Indication: Hyperkalemia On: :54 Request PH, BODY FLUID 36406 (20179)Indication: Hyperkalemia On: :54 Request Comments: urine URINALYSIS (22259)Indication: Hyperkalemia On: :51 Request Metabolic Panel, Basic (05900)Indication: Hyperkalemia On: :51 Request LIPID PANEL (51720)Indication: Hyperglyceridemia On: 82-Rgb-992802:40 Request Comments: in three months (approximately) Metabolic Panel, Basic (62221)Indication: Hyperkalemia On: 74-Bpx-81219:38 Request Metabolic Panel, Basic (41764)Indication: Hyperkalemia On: 98-Tri-271950:05 Request Comments: STAT METABOLIC PANEL, COMPREHENSIVE (64822)Indication: Diabetes mellitus type II, controlled, with no complications On: 54-Utj-99938:40 Request METABOLIC PANEL, COMPREHENSIVE (42780)Indication: Abnormal finding of blood chemistry, unspecified On: :38 Request ANTIMITOCHONDRIAL ANTIBODY (06022)Indication: Abnormal finding of blood chemistry, unspecified On: :38 Request FERRITIN (12018)Indication: Abnormal finding of blood chemistry, unspecified On: :38 Request CERULOPLASMIN (20363)Indication: Abnormal finding of blood chemistry, unspecified On: :38 Request ASM (ANTI SMOOTH MUSCLE ANTIBODY) (94824)Indication: Abnormal finding of blood chemistry, unspecified On: :38 Request ANTI-LIVER/KIDNEY MICROSOMAL ANTIBODY (81519)Indication: Abnormal finding of blood chemistry, unspecified On: :38 Request TONA (ANTINUCLEAR ANTIBODY) (83932)Indication: Abnormal finding of blood chemistry, unspecified On: :38 Request 24 HOUR URINE, COPPER (98322) (18657)Indication: Abnormal finding of blood chemistry, unspecified On: :38 Request Blood Glucose , Office (70124)Indication: Diabetes mellitus type II, controlled, with no complications On: :38 Request HEPATIC FUNCTION PANEL (29279)Indication: Diabetes mellitus type II, controlled, with no complications On: 50-Cuo-823473:01 Request Lipid Panel (69502)Indication: Hyperlipidemia On: :59 Request MICROALBUMIN: CREATININE RATIO (58198) AND (49098)Indication: Diabetes mellitus type II, controlled, with no complications On: :06 Request METABOLIC PANEL, COMPREHENSIVE (63047)Indication: Diabetes mellitus type II, controlled, with no complications On: 6-Emq-278611: Request LIPID PANEL (77842)Indication: Hyperlipidemia On: 3-Lzz-290454:06 Request HEPATITIS C ANTIBODY (98884)Indication: WWV V70.0 (Renamed from WWV) On: 74-Pvw-756559:55 Request Metabolic Panel, Basic (69613)Indication: Benign essential hypertension (Renamed from Benign essential HTN) On: 25-Bvf-751876:46 Request METABOLIC PANEL, COMPREHENSIVE (66100)Indication: Benign essential hypertension (Renamed from Benign essential HTN) On: 4-Kok-826381:30 Request LIPID PANEL (78852)Indication: Benign essential hypertension (Renamed from Benign essential HTN) On: :30 Request CBC WITH MANUAL DIFF (48888)Indication: Benign essential hypertension (Renamed from Benign essential HTN) On: 2-Ylj-629778:30 Request Lipid Panel (71138)Indication: Benign essential hypertension (Renamed from Benign essential HTN) On: : Request Comments: in three months (approximately) rest CBC (Auto) (83894)Indication: Benign essential hypertension (Renamed from Benign essential HTN) On: :25 Request Metabolic Panel, Comprehensive (38811)Indication: Benign essential hypertension (Renamed from Benign essential HTN) On: 08-Ncz-013307:25 Request VARICELLA-ZOSTER ANTBODY (68770)Indication: Physical exam On: 4-Pcd-681234:57 Request RUBEOLA ANTIBODY (62002)Indication: Physical exam On: 8-Hos-147772:56 Request MUMPS ANTIBODY (04189)Indication: Physical exam On: 1-Tkv-188220:52 Request LIPID PANEL (42042)Indication: Hyperlipidemia On: 17-Oqa-433311:31 Request TSH (70171)Indication: Other chest pain On: 38-Anp-260025:13 Request ASSAY, TROPONIN, QUANTITATIVE (aka Troponin I) (56515)Indication: Other chest pain On: 21-Lhz-687118:09 Request Comments: stat call labs D-Dimer (11481)Indication: Other chest pain On: :09 Request Comments: stat METABOLIC PANEL, COMPREHENSIVE (41501)Indication: Other chest pain On: 32-Pvy-849841:33 Request CBC WITH MANUAL DIFF (33032)Indication: Other chest pain On: 04-Hdu-823590:33 Request SED RATE ERYTHROCYTE (26098)Indication: Other chest pain On: 68-Iwv-600218:33 Request C-REACTIVE PROTEIN (80265)Indication: Other chest pain On: 58-Zgg-415879:33 Request Lipid Panel (42996)Indication: Hyperglyceridemia On: 00-Abc-744237:04 Request Urinalysis, Office (12197)Indication: Weakness On: 9-Bzv-746697:15 Request ALPHONSO CULTURE-STOOL (00502)Indication: Diarrhea (Renamed from D (diarrhea)) On: :29 Request C-DIFFICILE, STOOL (14980)Indication: Diarrhea (Renamed from D (diarrhea)) On: :29 Request LEUKOCYTE COUNT, FECAL (90424)Indication: Diarrhea (Renamed from D (diarrhea)) On: :29 Request OCCULT BLOOD FECES SCREEN (21772)Indication: Diarrhea (Renamed from D (diarrhea)) On: :29 Request OVA & PARASITE DIR SMEAR (42559)Indication: Diarrhea (Renamed from D (diarrhea)) On: :29 Request TONA (ANTINUCLEAR ANTIBODY) (29666)Indication: Neoplasm of uncertain behavior of skin On: 2-Mrc-237573:41 Request Comments: ALSO DO SS-A AND SS-B URINALYSIS W/O MICRO (73109)Indication: Nausea On: 87-Smy-91732:31 Request Glucose (68389)Indication: Hyperglyceridemia On: 25-Apr-20079:07 Request Lipid Panel (47666)Indication: Hyperglyceridemia On: :07 Request Metabolic Panel, Comprehensive (17005)Indication: Hyperglyceridemia On: 8-Orb-833656:45 Request Metabolic Panel, Comprehensive (99292)Indication: Hyperglyceridemia On: 5-Uvl-133259:45 Request Planned Encounters Medical; [facility] 3 Month FU - On: 11-Jun-2018 11:30 [facility] Lynsey OTT, Selina Rust MD Planned Procedures ADMINISTRATION OF INFLUENZA On: 12-Mar-2018 Intent VIRUS VACCINE (G0008)By: Lynsey Comments: Lot #:[id number] date: 6-31-72Etlyvg given:0.5mlRoute: IMSite given:L DltdGiven by: ElaineVIS and ABN signed [employer] , Selina Rust MD Renal Duplex ScanBy: Lynsey OTT, On: 28-Dec-2017 Intent Selina Rust MD Ultrasound - RenalBy: Lynsey On: 28-Dec-2017 Intent Selina OTT MD, Dana M Renal Artery DopplerBy: Lynsey On: 21-Dec-2017 Intent Selina OTT MD, Dana M Ultrasound - RenalBy: Lynsey On: 21-Dec-2017 Intent Selina OTT MD, Dana M PNEUM VAC ADLT/IMUMNOSPR, On: 03-Sep-2017 Intent SBC/INTRM (87927)By: Selina Menon MD, MD, Dana M MAMMOGRAM BREAST BILATERAL On: 03-Sep-2017 Intent SCREENING DIGITAL (68666)By: Lynsey OTT, Selina Rust MD Flu Vaccine (Quadrivalent) On: 09-Apr-2017 Intent [id number]: Selina Menon MD Comments: QUAD flu shotlot number: [id number]: 09/2017L Deltoid IMAD [employer] AND [employer]IES PROFESSOR Selina Menon MD BILATERAL MAMMOGRAMS ([id number])By: On: 25-Apr-2016 Intent Selina Menon MD, MD, Dana M Flu Vaccine (Quadrivalent) On: 21-Mar-2016 Intent [id number]: Rupert Kim Comments: FLUlot: [id number]:11/08site:Lt deltoidroute:IMdose:.5mlCHIN TINEO Ultrasound - LiverBy: Lynsey On: 13-Oct-2013 Intent , Selina Menon MD, Selina Allred Eprescribed prescriptions On: 07-Oct-2013 Intent (G8553)By: Selina Menon MD, MD, Dana M Eprescribed prescriptions On: 05-Sep-2013 Intent (G8553)By: Selina Menon MD, MD, Dana M Eprescribed prescriptions On: 10-Jul-2013 Intent (G8553)By: Selina Menon MD, MD, Dana M Eprescribed prescriptions On: 29-Apr-2013 Intent (G8553)By: Arelis Goldberg LPN Eprescribed prescriptions On: 03-Apr-2013 Intent (G8553)By: Arelis Goldberg LPN IMMUNIZ ADMNIN, 1 VAC, On: 07-Mar-2013 Intent SNGL/COMBO ([id number])By: Yusuf MAY, Comments: Lot #[id number]-[id number] dltd, IMDose prefilled syringegiven by:VANDANA Lo and ABN signed Arelis Howell FLU VAC, SPLIT, >3 YEARS, On: 07-Mar-2013 Intent INTRAMUSC ([id number])By: Arelis Goldberg LPN CT - Sinuses CompleteBy: Lynsey On: 14-Jan-2013 Intent Selina OTT MD, Dana M Eprescribed prescriptions On: 14-Jan-2013 Intent (G8553)By: Sunshine Engel Pulse Oximetry ([id number])By: On: 02-Dec-2012 Intent Maximilian, PHI Eprescribed prescriptions On: 01-Aug-2012 Intent (G8553)By: Lexie Moreno DO Nuclear Stress Test/Stress On: 28-Mar-2012 Intent SPECT/TreadmillBy: Lynsey OTT, Selina Menon MD, Selina M FLU VAC, SPLIT, >3 YEARS, On: 01-Mar-2012 Intent INTRAMUSC (60470)By: Demarco, Comments: Lot:[id number]:PREFILLEDRoute:IMSite:L ARMGiven By:INDIO Rojas IMMUNIZ ADMNIN, 1 VAC, On: 01-Mar-2012 Intent SNGL/COMBO ([id number])By: Crystal Pal IMMUNIZ ADMNIDwain, 1 VAC, On: 01-Mar-2012 Intent SNGL/COMBO (06768)By: PHI Mitchell FLU VAC, SPLIT, >3 YEARS, On: 01-Mar-2012 Intent INTRAMUSC (37178)By: PHI Mitchell IMMUNMADDIE ADMNIDwain, 1 VAC, On: 25-Apr-2011 Intent SNGL/COMBO (05259)By: Lynsey OTT, Selina Menon MD, Selina Allred FLU VAC, SPLIT, >3 YEARS, On: 25-Apr-2011 Intent INTRAMUSC (12199)By: Lynsey OTT, Selina Menon MD, Selina Allred TDAP VACCINE >7 IM (19505)By: On: 25-Apr-2011 Intent Lynsey OTT, Selina Menon MD, Selina Allred FLU VAC, SPLIT, >3 YEARS, On: 13-Mar-2011 Intent INTRAMUSC (55645)By: Yusuf MAY, Comments: Lot #[id number]-L arm, IMDose 0.5mlgiven by:LORENA Howell IMMUNIZ ADMNIN, 1 VAC, On: 13-Mar-2011 Intent SNGL/COMBO ([id number])By: Arelis Goldberg LPN Eprescribed prescriptions On: 23-Feb-2011 Intent (G8553)By: Lexie Moreno DO CT - ChestBy: Amber Luke DO On: 16-May-2010 Intent Comments: PE PROTOCOL - STAT - CALL WET READ Spirometry ([id number])By: Ti DHALIWAL, On: 16-May-2010 Intent Amber A Comments: poor curve attempted several times patient trouble performing and shows obst PFT - CompleteBy: Amber Luke DO On: 16-May-2010 Intent A Comments: try to do this week at [facility]- EKG ([id number])By: Amairani, On: 16-May-2010 Intent Jessie Comments: ekg showed normal sinus rhythym, normal axis, no acute st/t wave changes rsr Pulse Oximetry ([id number])By: Ti On: 16-May-2010 Intent Amber DHALIWAL Comments: 98% FLU VAC, SPLIT, >3 YEARS, On: 16-May-2010 Intent INTRAMUSC (22937)By: Amairani, Comments: Lot #[id number]-L arm/IMDose 0.5mlgiven by:LORENA Roman Radiology - Chest- PA and LatBy: On: 16-May-2010 Intent Amber Luke DO IMMUNIZ ADMNIN, 1 VAC, On: 16-May-2010 Intent SNGL/COMBO ([id number])By: Jessie Bales Wax CurettesBy: Starlaesdeon TRANFrances On: 16-Mar-2010 Intent E Ear Irrigation ([id number])By: Ciesa On: 16-Mar-2010 Intent Frances TRAN E UGI (With air contrast if On: 22-Feb-2009 Intent necessary)By: Lynsey OTT, Selina Menon MD, Selnia Allred COMP EYE EXAMINATION, ESTAB On: 27-Jul-2008 Intent PATIENT ([id number])By: Murali MAY, Comments: OD- -1 OS- -1OU- -1cantonia Cummings Instructions Name Dates Details Low back pain without sciatica, unspecified back pain laterality : How to access health information online Indication: Low back pain without sciatica, unspecified back pain laterality Low back pain without sciatica, unspecified back pain laterality : How to access health information online - Detail Indication: Low back pain without sciatica, unspecified back pain laterality Low back pain without sciatica, unspecified back pain laterality : Patient Instructions Indication: Low back pain without sciatica, unspecified back pain laterality Diabetes mellitus type II, controlled, with no complications : How to access health information online Indication: Diabetes mellitus type II, controlled, with no complications Diabetes mellitus type II, controlled, with no complications : How to access health information online - Detail Indication: Diabetes mellitus type II, controlled, with no complications Diabetes mellitus type II, controlled, with no complications : Patient Instructions Indication: Diabetes mellitus type II, controlled, with no complications Proteinuria (Renamed from Abnormal presence of protein in urine) : How to access health information online Indication: Proteinuria (Renamed from Abnormal presence of protein in urine) Proteinuria (Renamed from Abnormal presence of protein in urine) : How to access health information online - Detail Indication: Proteinuria (Renamed from Abnormal presence of protein in urine) Diabetes mellitus type II, controlled, with no complications : How to access health information online Indication: Diabetes mellitus type II, controlled, with no complications Diabetes mellitus type II, controlled, with no complications : How to access health information online - Detail Indication: Diabetes mellitus type II, controlled, with no complications Diabetes mellitus type II, controlled, with no complications : Patient Instructions Indication: Diabetes mellitus type II, controlled, with no complications Well woman exam (Renamed from Encounter for well woman exam) : How to access health information online Indication: Well woman exam (Renamed from Encounter for well woman exam) Well woman exam (Renamed from Encounter for well woman exam) : How to access health information online - Detail Indication: Well woman exam (Renamed from Encounter for well woman exam) Well woman exam (Renamed from Encounter for well woman exam) : Patient Instructions Indication: Well woman exam (Renamed from Encounter for well woman exam) Diabetes mellitus type II, controlled, with no complications : How to access health information online Indication: Diabetes mellitus type II, controlled, with no complications Diabetes mellitus type II, controlled, with no complications : How to access health information online - Detail Indication: Diabetes mellitus type II, controlled, with no complications Diabetes mellitus type II, controlled, with no complications : Patient Instructions Indication: Diabetes mellitus type II, controlled, with no complications BMI 24.0-24.9, adult : How to access health information online Indication: BMI 24.0-24.9, adult BMI 24.0-24.9, adult : How to access health information online - Detail Indication: BMI 24.0-24.9, adult BMI 24.0-24.9, adult : Patient Instructions Indication: BMI 24.0-24.9, adult Bipolar affective, manic : How to access health information online Indication: Bipolar affective, manic Bipolar affective, manic : How to access health information online - Detail Indication: Bipolar affective, manic Bipolar affective, manic : Patient Instructions Indication: Bipolar affective, manic Rash (Renamed from Cutaneous eruption) : How to access health information online Indication: Rash (Renamed from Cutaneous eruption) Rash (Renamed from Cutaneous eruption) : How to access health information online - Detail Indication: Rash (Renamed from Cutaneous eruption) Rash (Renamed from Cutaneous eruption) : Patient Instructions Indication: Rash (Renamed from Cutaneous eruption) Diabetes mellitus type II, controlled, with no complications : How to access health information online Indication: Diabetes mellitus type II, controlled, with no complications Diabetes mellitus type II, controlled, with no complications : How to access health information online - Detail Indication: Diabetes mellitus type II, controlled, with no complications Diabetes mellitus type II, controlled, with no complications : Patient Instructions Indication: Diabetes mellitus type II, controlled, with no complications Diabetes mellitus type II, controlled, with no complications : Patient Instructions Indication: Diabetes mellitus type II, controlled, with no complications Diabetes mellitus type II, controlled, with no complications : Patient Instructions Indication: Diabetes mellitus type II, controlled, with no complications Wart : Patient Instructions Indication: Wart Chronic Sinusitis (Renamed from Chronic infection of sinus) : Patient Instructions Indication: Chronic Sinusitis (Renamed from Chronic infection of sinus) Diabetes mellitus type II, controlled, with no complications : Patient Instructions Indication: Diabetes mellitus type II, controlled, with no complications Diabetes mellitus type II, controlled, with no complications : Patient Instructions Indication: Diabetes mellitus type II, controlled, with no complications Delusional disorder, mixed type : Patient Instructions Indication: Delusional disorder, mixed type Sinusitis, acute : Patient Instructions Indication: Sinusitis, acute Sinusitis, acute : Patient Instructions Indication: Sinusitis, acute Sinusitis, acute : Patient Instructions Indication: Sinusitis, acute Anxiety : Patient Instructions Indication: Anxiety Encounters Office Visit On: 11-Apr-2018 15:10 Encounter Diagnosis: BMI 27.0-27.9,adult, Low back pain without sciatica, unspecified back pain laterality, Current nonsmoker (Renamed from Current non-smoker) End: 11-Apr-2018 15:48 [facility] Office Visit On: 12-Mar-2018 11:22 Encounter Reason: Follow up for chronic medical issues - The patient feels well with minor complaints, has good energy level and is sleeping well. Patient has been compliant with instructions. Current medication use: no End: 12-Mar-2018 11:58 side effects, compliant with dosing regimen and considered effective by patient. Patient sleeps 9 hours per night. Impact of disease: emotional impact-moderate. Nutrition: balanced diet and supplemental vitamins. The medical issues the patient is following up for include blood sugar issues, cardiac issues, depression, high blood pressure, high cholesterol and kidney problems.Encounter Diagnosis: BMI 27.0-27.9,adult, Current nonsmoker (Renamed from Current non-smoker), Diabetes mellitus type II, controlled, with no complications, Need for prophylactic vaccination and inoculation against influenza, Abnormal finding of blood chemistry, unspecified, Delusional disorder, mixed type, Hyperlipidemia, Benign essential hypertension (Renamed from Benign essential HTN), Schizophrenia, Hyperglyceridemia, Bipolar affective, manic, Anxiety, Well woman exam (Renamed from Encounter for well woman exam), OVERWEIGHT (Renamed from Excessive fat), Acute renal insufficiency, Chronic kidney disease, stage 3, Vitamin D deficiency, Eosinophilia, Proteinuria (Renamed from Abnormal presence of protein in urine), Abnormal blood creatinine level, BMI 26.0-26.9,adult [facility] Phone Encounter On: 03-Jan-2018 15:21 Encounter Diagnosis: Chronic kidney disease, stage 3 End: 03-Jan-2018 15:26 [facility] Office Visit On: 28-Dec-2017 12:49 Encounter Diagnosis: BMI 26.0-26.9,adult, Proteinuria (Renamed from Abnormal presence of protein in urine), Current nonsmoker (Renamed from Current non-smoker), Acute renal insufficiency End: 28-Dec-2017 13:13 [facility] Lab Order On: 21-Dec-2017 11:04 Encounter Diagnosis: Abnormal blood creatinine level, Proteinuria (Renamed from Abnormal presence of protein in urine), Eosinophilia End: 21-Dec-2017 11:12 [facility] Office Visit On: 06-Dec-2017 10:58 Encounter Reason: Follow up for chronic medical issues - The patient feels well with no complaints and has good energy level. Patient has been compliant with instructions. Current medication use: no side effects and comp End: 06-Dec-2017 11:40 liant with dosing regimen. Patient sleeps 8 hours per night. Impact of disease: emotional impact-moderate. Nutrition: balanced diet and supplemental vitamins. The medical issues the patient is following up for include blood sugar issues, cardiac issues, depression, high blood pressure, high cholesterol and other (schizophrenia, vitamin d def.).Encounter Diagnosis: BMI 26.0-26.9,adult, Current nonsmoker (Renamed from Current non-smoker), Diabetes mellitus type II, controlled, with no complications, Acute renal insufficiency, Schizophrenia, Delusional disorder, mixed type, Hyperlipidemia, Hyperglyceridemia, Bipolar affective, manic, Anxiety, Proteinuria (Renamed from Abnormal presence of protein in urine), Vitamin D deficiency, Well woman exam (Renamed from Encounter for well woman exam), Benign essential hypertension (Renamed from Benign essential HTN), OVERWEIGHT (Renamed from Excessive fat), BMI 24.0-24.9, adult, BMI 25.0-25.9,adult [facility] Phone Encounter On: 17-Oct-2017 16:55 [facility] End: 17-Oct-2017 16:55 Annotation/Addendum On: 04-Sep-2017 11:29 Encounter Diagnosis: Encounter for screening colonoscopy End: 11-Sep-2017 7:37 [facility] Office Visit On: 03-Sep-2017 12:04 Encounter Reason: Physical female exam - Last seen between 1-3 months ago. General health: feels well with no complaints, has good energy level and is sleeping well. The patient's appetite is normal. Nutrition: normal/ad End: 06-Sep-2017 7:02 equate. Exercises 0 days per week. Sleeps on average 10 hours per night. Elimination problems include diarrhea. Safety measures include appropriate use of safety belts and home smoke detectors. Current emotional problems include anxiety and depression. screening, colonoscopy (never had one), screening, Pap smear () and screening, visual acuity (December 24 Dr. Pickard).Encounter Diagnosis: Well woman exam (Renamed from Encounter for well woman exam), Anxiety, Hyperlipidemia, Anemia, Current nonsmoker (Renamed from Current non-smoker), Hyperglyceridemia, Bipolar affective, manic, Schizophrenia, Diabetes mellitus type II, controlled, with no complications, Benign essential hypertension (Renamed from Benign essential HTN), OVERWEIGHT (Renamed from Excessive fat), Delusional disorder, mixed type, BMI 26.0-26.9,adult, Screening mammogram, encounter for, Proteinuria (Renamed from Abnormal presence of protein in urine), Vitamin D deficiency, Abnormal finding of blood chemistry, unspecified, Pneumococcal vaccination given [facility] Lab Order On: 15-Aug-2017 16:59 Encounter Diagnosis: Benign essential hypertension (Renamed from Benign essential HTN) End: 15-Aug-2017 17:01 [facility] Office Visit On: 28-May-2017 10:13 Encounter Reason: Follow up for chronic medical issues - The patient feels well with no complaints, has good energy level and is sleeping well. Patient has been compliant with instructions. Current medication use: no marlena End: 28-May-2017 10:43 e effects and compliant with dosing regimen. Patient sleeps 8 hours per night. Nutrition: balanced diet. The medical issues the patient is following up for include All identified problems below.Encounter Diagnosis: Diabetes mellitus type II, controlled, with no complications, Current nonsmoker (Renamed from Current non-smoker), BMI 25.0-25.9,adult, Hyperglyceridemia, Schizophrenia, Bipolar affective, manic, BMI 24.0-24.9, adult, Anxiety, Hyperlipidemia, Delusional disorder, mixed type, Diplopia, Screening mammogram, encounter for, Anemia, Benign essential hypertension (Renamed from Benign essential HTN), OVERWEIGHT (Renamed from Excessive fat) [facility] Office Visit On: 09-Apr-2017 10:25 Encounter Reason: Injections - The medication the patient is here to receive is other (quad flu).Encounter Diagnosis: Need for prophylactic vaccination and inoculation against influenza (Renamed from Need for immunization against influenza) End: 10-Apr-2017 6:56 [facility] Office Visit On: 16-Feb-2017 10:33 Encounter Reason: Follow up acute care visit - The patient feeling better since last seen and improving. Patient has been compliant with instructions. Current medication use: no side effects. Patient sleeps 7 hours per n End: 16-Feb-2017 11:48 ight. Impact of disease: emotional impact-moderate. Nutrition: balanced diet and supplemental vitamins. The medical issues the patient is following up for include blood sugar issues and depression.Encounter Diagnosis: BMI 24.0-24.9, adult, Current nonsmoker (Renamed from Current non-smoker), Diabetes mellitus type II, controlled, with no complications, Anxiety, Hypercalcemia, Hyperlipidemia, Hyperglyceridemia, Schizophrenia, Bipolar affective, manic, Anemia, Benign essential hypertension (Renamed from Benign essential HTN), OVERWEIGHT (Renamed from Excessive fat), Delusional disorder, mixed type, Diplopia, Screening mammogram, encounter for [facility] Office Visit On: 15-Jan-2017 14:32 Encounter Reason: Follow up tests - Date: (01/08).Encounter Diagnosis: Current nonsmoker (Renamed from Current non-smoker), Hyperglyceridemia, Bipolar affective, manic, Schizophrenia, Hyperlipidemia, OVERWEIGHT (Renamed from Excessive fat), Anxiety, End: 15-Jan-2017 15:19 Anemia, Diabetes mellitus type II, controlled, with no complications, Diplopia, Benign essential hypertension (Renamed from Benign essential HTN), Delusional disorder, mixed type, Iron deficiency anemia due to chronic blood loss, Screening mammogram, encounter for, Hypercalcemia [facility] Lab Order On: 22-Dec-2016 9:04 Encounter Diagnosis: Anemia, Diabetes mellitus type II, controlled, with no complications, Diplopia End: 22-Dec-2016 9:08 [facility] Office Visit On: 17-Nov-2016 15:30 Encounter Diagnosis: Schizophrenia, Delusional disorder, mixed type, Diabetes mellitus type II, controlled, with no complications, Iron deficiency anemia due to chronic blood loss, Overuse of medication, Rash (Renamed from Cutaneous eruption), End: 21-Nov-2016 21:08 Benign essential hypertension (Renamed from Benign essential HTN) [facility] Refill Request On: 16-Nov-2016 7:43 Encounter Diagnosis: Schizophrenia End: 16-Nov-2016 7:48 [facility] Office Visit On: 30-Oct-2016 15:45 Encounter Diagnosis: Bipolar affective, manic, Delusional disorder, mixed type End: 31-Oct-2016 8:14 [facility] Office Visit On: 04-Sep-2016 11:51 Encounter Diagnosis: Rash (Renamed from Cutaneous eruption), Current nonsmoker (Renamed from Current non-smoker), Iron deficiency anemia due to chronic blood loss, Diabetes mellitus type II, controlled, with no complications End: 04-Sep-2016 12:14 [facility] Office Visit On: 27-Jul-2016 12:14 Encounter Reason: Follow up for chronic medical issues - The patient feels well with minor complaints. Patient has been compliant with instructions. The medical issues the patient is following up for include All identified problems below. End: 27-Jul-2016 22:12 Encounter Diagnosis: Diabetes mellitus type II, controlled, with no complications, Hyperglyceridemia, OVERWEIGHT (Renamed from Excessive fat), Anxiety, Benign essential hypertension (Renamed from Benign essential HTN), Hyperlipidemia, Overuse of medication, Anemia, Bipolar affective, manic, Screening mammogram, encounter for, Delusional disorder, mixed type [facility] Lab Order On: 01-May-2016 11:29 Encounter Diagnosis: Anemia End: 01-May-2016 11:32 [facility] Office Visit On: 25-Apr-2016 12:19 Encounter Diagnosis: Diabetes mellitus type II, controlled, with no complications, OVERWEIGHT (Renamed from Excessive fat), Hyperlipidemia, Bipolar affective, manic, Delusional disorder, mixed type, End: 27-Apr-2016 13:18 Benign essential hypertension (Renamed from Benign essential HTN), Anxiety, Screening mammogram, encounter for, Overuse of medication [facility] Phone Encounter On: 27-Mar-2016 12:33 Encounter Diagnosis: Delusional disorder, mixed type, Bipolar affective, manic End: 27-Mar-2016 12:45 [facility] Office Visit On: 21-Mar-2016 8:43 Encounter Reason: Nurse procedure visit - The symptoms have been associated with other (B12).Encounter Diagnosis: Need for prophylactic vaccination and inoculation against influenza End: 21-Mar-2016 18:00 [facility] Office Visit On: 10-Dec-2015 16:11 Encounter Reason: Follow up for chronic medical issues - The patient feels well with no complaints. Patient has been non-compliant (seraquel only take at night because make sleep. sleep weel at night) with instructions. End: 13-Dec-2015 9:46 Current medication use: non-compliant with dosing regimen. Patient sleeps 8 hours per night. Nutrition: balanced diet. The medical issues the patient is following up for include All identified problems below.Encounter Diagnosis: Diabetes mellitus type II, controlled, with no complications, Delusional disorder, mixed type, Benign essential hypertension (Renamed from Benign essential HTN), OVERWEIGHT (Renamed from Excessive fat), Hyperlipidemia, Anxiety, Hyperglyceridemia, WWV V70.0 (Renamed from WWV) [facility] Office Visit On: 09-Mar-2015 14:07 Encounter Reason: Follow up for chronic medical issues - The patient feels well with no complaints, has good energy level and is sleeping well. Patient has been compliant with instructions. Current medication use: no marlena End: 09-Mar-2015 14:59 e effects and compliant with dosing regimen. Patient sleeps 8 hours per night. Nutrition: balanced diet.Encounter Diagnosis: Diabetes type II,controlled no comp (250.00), ANXIETY STATE NOS (300.00), ELEVATED LFT (794.8), Chronic Sinusitis (Renamed from Chronic infection of sinus), Hyperlipidemia (272.4), Memory change, Acute renal failure, OVERWEIGHT (Renamed from Excessive fat), Benign essential hypertension (Renamed from Benign essential HTN), Disorder, delusional (297.1), Hypertriglycerides (272.1) [facility] Lab Order On: 04-Feb-2015 9:01 Encounter Diagnosis: Hypertriglycerides (272.1), OVERWEIGHT (Renamed from Excessive fat), Benign essential hypertension (Renamed from Benign essential HTN), Diabetes type II,controlled no comp (250.00) End: 04-Feb-2015 9:06 [facility] Office Visit On: 26-Nov-2014 13:04 Encounter Reason: Follow up hospital - Reason for ER visit: note: (anxiety, depression ).Encounter Diagnosis: Diabetes type II,controlled no comp (250.00), Hypertriglycerides (272.1), Benign essential hypertension (Renamed from Benign essential HTN) End: 27-Nov-2014 7:05 , Disorder, delusional (297.1) [facility] Office Visit On: 05-Nov-2014 12:26 Encounter Diagnosis: Diabetes type II,controlled no comp (250.00), Hyperlipidemia (272.4), Benign essential hypertension (Renamed from Benign essential HTN), Disorder, delusional (297.1) End: 05-Nov-2014 20:46 [facility] Office Visit On: 13-Feb-2014 9:55 Encounter Reason: Follow up, Diagnostic Procedure Results - Diagnostic tests include other (labs ). Date: (). Follow up visit with no current symptoms.Encounter Diagnosis: Hyperkalemia, Disorder, delusional (297.1), Memory change End: 13-Feb-2014 13:06 [facility] Lab Order On: 14-Jan-2014 12:47 Encounter Diagnosis: Hyperkalemia End: 14-Jan-2014 12:52 [facility] Office Visit On: 13-Jan-2014 13:17 Encounter Reason: Follow up for chronic medical issues - The patient feels well with minor complaints, has good energy level and is sleeping well. Patient has been compliant with instructions. Current medication use: no End: 13-Jan-2014 13:46 side effects and compliant with dosing regimen (quit jaunumet after 1 day). Patient sleeps 8 hours per night. Nutrition: balanced diet.Encounter Diagnosis: Diabetes type II,controlled no comp (250.00), Benign essential hypertension (Renamed from Benign essential HTN), Disorder, delusional (297.1), Chronic Sinusitis (Renamed from Chronic infection of sinus), ELEVATED LFT (794.8), Hyperlipidemia (272.4), Ingrown toenail, Hypertriglycerides (272.1), ANXIETY STATE NOS (300.00), Hyperkalemia, OVERWEIGHT (Renamed from Excessive fat), Acute renal failure [facility] Phone Encounter On: 05-Nov-2013 9:36 Encounter Diagnosis: Hyperkalemia End: 05-Nov-2013 9:39 [facility] Lab Order On: 03-Nov-2013 11:03 Encounter Diagnosis: Hyperkalemia End: 03-Nov-2013 11:06 [facility] Office Visit On: 31-Oct-2013 11:36 Encounter Reason: Follow up hospital - Reason for ER visit: note: (head). The patient does not feel well (still some shooting in head and feel very weak), has decreased energy level and is sleeping well (with sleeping pi End: 31-Oct-2013 12:30 ll). Patient has been compliant with instructions.Encounter Diagnosis: UTI (lower urinary tract infection), Acute renal failure, Hyperkalemia, Disorder, delusional (297.1), ANXIETY STATE NOS (300.00) [facility] Office Visit On: 13-Oct-2013 9:04 Encounter Reason: Follow up, Diagnostic Procedure Results - Diagnostic tests include other (labs ). Date: (10-10-13).Encounter Diagnosis: Hypertriglycerides (272.1), OVERWEIGHT (Renamed from Excessive fat), Hyperlipidemia (272.4), End: 13-Oct-2013 9:49 Disorder, delusional (297.1), Chronic Sinusitis (Renamed from Chronic infection of sinus), ANXIETY STATE NOS (300.00), Benign essential hypertension (Renamed from Benign essential HTN), Diabetes type II,controlled no comp (250.00), Ingrown toenail, ELEVATED LFT (794.8), Vasu [facility] Office Visit On: 07-Oct-2013 12:35 Encounter Reason: Follow up for chronic medical issues - The patient feels well with minor complaints, has good energy level and is sleeping well. Patient has been compliant with instructions. Current medication use: no End: 07-Oct-2013 16:53 side effects and compliant with dosing regimen (quit jaunumet after 1 day). Patient sleeps 8 hours per night. Nutrition: balanced diet.Encounter Diagnosis: Diabetes type II,controlled no comp (250.00), Dizziness, Ingrown toenail, ANXIETY STATE NOS (300.00), Benign essential hypertension (Renamed from Benign essential HTN), Vasu [facility] Office Visit On: 05-Sep-2013 8:34 Encounter Reason: Warts, Unspecified - The lesions are located on the right hand (middle finger). Onset was week(s) ago. Associated symptoms include irritation.Encounter Diagnosis: Vasu, Chronic Sinusitis (Renamed from Chronic infection of sinus) End: 05-Sep-2013 9:12 [facility] Office Visit On: 10-Jul-2013 9:46 Encounter Reason: Sinusitis/ - The duration of the symptoms are 3 days The course has been constant. The sinusitis/ has no relieving factors. Associated features include The symptoms have been associated with cough, nasa End: 10-Jul-2013 10:23 l discharge/stuffy nose and sinus pain. Note for Sinusitis/: last week congested. thoughtget better but congestion. some yellow green. no feverEncounter Diagnosis: Chronic Sinusitis (Renamed from Chronic infection of sinus) [facility] Office Visit On: 07-Jul-2013 13:25 Encounter Reason: Follow up for chronic medical issues - The patient feels well with minor complaints, has good energy level and is sleeping well. Patient has been compliant with instructions. Current medication use: no End: 07-Jul-2013 14:08 side effects and compliant with dosing regimen (quit jaunumet after 1 day). Patient sleeps 8 hours per night. Nutrition: balanced diet.Encounter Diagnosis: Diabetes type II,controlled no comp (250.00), Hyperlipidemia (272.4), Disorder, delusional (297.1), OVERWEIGHT (Renamed from Excessive fat), ANXIETY STATE NOS (300.00), Benign essential hypertension (Renamed from Benign essential HTN), Chronic Sinusitis (Renamed from Chronic infection of sinus), Thrush, VERTIGO, BENIGN PAROXYSMAL POSITION (386.11), Hypertriglycerides (272.1) [facility] Office Visit On: 29-Apr-2013 14:51 Encounter Reason: Follow up testsEncounter Diagnosis: Diabetes type II,controlled no comp (250.00), Hyperlipidemia (272.4) End: 01-May-2013 8:26 [facility] Office Visit On: 21-Apr-2013 10:14 Encounter Reason: Sinusitis/ - The duration of the symptoms are 2 days The course has been worsening. The sinusitis/ has no relieving factors. Associated features include The symptoms have been associated with cough, nickie End: 21-Apr-2013 11:13 al discharge/stuffy nose and sinus pain. No previous evaluations were reported.Encounter Diagnosis: Chronic Sinusitis (473.9), Thrush (112.0) [facility] Office Visit On: 03-Apr-2013 10:47 Encounter Reason: Follow up Meds - Current medication use: no side effects. Note for Follow up Meds: Called to [facility] to confirm patients med doseages on the seroquel as far as 50mg vs 100mg as we show only ever rx the 50 End: 03-Apr-2013 11:21 -- they confirm 50mg and have never given her 100mg of the seroquel.so takes 100mg at night since taking 2qhs and the zoloft is 2 qd instead of 1.5qdEncounter Diagnosis: SINUSITIS, ACUTE NOS (461.9), Benign essential hypertension (401.1), Headache (784.0), Hyperlipidemia (272.4), OVERWEIGHT (278.02), Lumbago (724.2), Elevated Blood Pressure without diagnosis of Hypertension (796.2), Hypertriglycerides (272.1), Unspecified temporomandibular joint disorders (524.60), Breath shortness (786.05), Stress Reaction (308.4), Chronic Sinusitis (473.9), VERTIGO, BENIGN PAROXYSMAL POSITION (386.11), Disorder, delusional (297.1), Proteinuria (791.0), ANXIETY STATE NOS (300.00), Sleep disorder (780.50), Bhat's neuroma (355.6), WWV V70.0 (Renamed from [facility]) [facility] Office Visit On: 07-Mar-2013 14:30 Encounter Reason: Injections - The medication the patient is here to receive is other.Encounter Diagnosis: Need for prophylactic vaccination and inoculation against influenza (V04.81) End: 10-Mar-2013 6:17 [facility] Office Visit On: 14-Jan-2013 14:26 Encounter Reason: Sinusitis - Symptoms include postnasal drainage, cheek pressure, forehead pain and cough (yellow mucus). Onset was 3 day(s) ago. The symptoms occur constantly. The patient describes this as unchanged. A End: 14-Jan-2013 15:39 ssociated symptoms include sore throat. The patient is not currently being treated for this problem. Note for Sinusitis: get alot yelow green. alot sinus pressure. not try otc the counter. Encounter Diagnosis: SINUSITIS, ACUTE NOS (461.9), Chronic Sinusitis (473.9) [facility] Office Visit On: 02-Dec-2012 13:06 Encounter Reason: Sinusitis/ - The duration of the symptoms are 2 days The course has been without change. The sinusitis/ has no relieving factors. Associated features include The symptoms have been associated with cough End: 02-Dec-2012 13:23 , nasal discharge/stuffy nose and sinus pain.Encounter Diagnosis: Breath shortness (786.05), SINUSITIS, ACUTE NOS (461.9) [facility] Office Visit On: 17-Oct-2012 11:56 Encounter Reason: Foot Problem - This condition occurred without any known injury (thinks done while shopping). The injury involved the left foot. This occurred 2 week(s) ago during recreational activities (shopping). Sy End: 17-Oct-2012 12:31 mptoms include foot pain and foot numbness. Symptoms are located in the left foot. The patient describes symptoms as moderate in severity and improving (some). Symptoms are exacerbated by weight bearing , walking, standing and direct pressure. Symptoms are relieved by rest., [ADDITIONAL REASON] Sinus pain - The onset of the pain has been gradual and has been occurring in a persistent pattern for 2 months. The course has been recurrent. The pain is characterized as moderate, tightness and a pressure sensation. The pain is experienced upon awakening and later in the day. Th e pain is described as being located in the frontal area. Note for Pain: having some blood green yellow drianage and pain in right cheek Encounter Diagnosis: Bhat's neuroma (355.6), SINUSITIS, ACUTE NOS (461.9) [facility] Office Visit On: 22-Aug-2012 11:40 Encounter Reason: Follow up ER - Reason for hospitalization note: (nausea and itchy red eyes ). Patient has been compliant with instructions. Current medication use: no side effects, compliant with dosing regimen and con End: 22-Aug-2012 12:11 sidered effective by patient. The patient feels well with minor complaints and has decreased energy level. Patient sleeps 7 hours per night. Impact of disease: emotional impact-mild. Nutrition: balanced diet and supplemental vitamins. Encounter Diagnosis: WWV V70.0 (Renamed from WWV), ANXIETY STATE NOS (300.00), Nausea (787.02) [facility] Office Visit On: 01-Aug-2012 11:15 Encounter Reason: Sinusitis - The last clinic visit was 1 week(s) ago. No changes in management were made at the last visit. Symptoms include nasal congestion, clear rhinorrhea, forehead pressure and cough. The symptoms End: 01-Aug-2012 12:05 occur constantly. The patient describes this as moderate in severity. Associated symptoms include fever, while associated symptoms do not include chills. The patient is not currently being treated for this problem.Encounter Diagnosis: SINUSITIS, ACUTE NOS (461.9) [facility] Office Visit On: 08-Jul-2012 15:31 Encounter Reason: Injections - The medication the patient is here to receive is other (right foot 1/2 cc kenalog, 1/2cc marcaine ).Encounter Diagnosis: Bhat's neuroma (355.6) End: 09-Jul-2012 18:29 [facility] Office Visit On: 06-Jun-2012 13:05 Encounter Diagnosis: Benign essential hypertension (401.1), ANXIETY STATE NOS (300.00), OVERWEIGHT (278.02) End: 06-Jun-2012 13:50 [facility] Office Visit On: 27-May-2012 14:08 Encounter Reason: Sinusitis/ - The duration of the symptoms are 3 days The course has been worsening. The sinusitis/ has no relieving factors. Associated features include The symptoms have been associated with cough, ear End: 27-May-2012 15:08 pain, nasal discharge/stuffy nose and sinus pain, while the symptoms have not been associated with swollen lymph glands or teeth pain. No previous evaluations were reported.Encounter Diagnosis: SINUSITIS, ACUTE NOS (461.9) [facility] Office Visit On: 25-Apr-2012 13:08 Encounter Diagnosis: ANXIETY STATE NOS (300.00), Disorder, delusional (297.1) End: 25-Apr-2012 13:27 [facility] Office Visit On: 28-Mar-2012 12:15 Encounter Reason: Follow up ER - Reason for hospitalization note:. Hospitalization details include: abnormal labs (ecg) Current medication use: no side effects.Encounter Diagnosis: ANXIETY STATE NOS (300.00), Chest pain (786.59) End: 28-Mar-2012 13:16 [facility] Office Visit On: 01-Mar-2012 16:34 Encounter Diagnosis: Need for prophylactic vaccination and inoculation against influenza (V04.81) End: 03-Mar-2012 13:42 [facility] Office Visit On: 01-Mar-2012 14:56 Encounter Diagnosis: Need for prophylactic vaccination and inoculation against influenza (V04.81), Ankle/Foot Pain (719.47), Benign essential hypertension (401.1), ANXIETY STATE NOS (300.00), Epigastric pain (Renamed from Abdominal pain, epigastric) End: 01-Mar-2012 15:39 , Hyperlipidemia (272.4) [facility] Office Visit On: 05-Jan-2012 10:42 Encounter Reason: Injections - The medication the patient is here to receive is other (1/2 cc marcaine 1/2 cc kenalog right foot ).Encounter Diagnosis: Ankle/Foot Pain (719.47) End: 05-Jan-2012 11:29 [facility] Office Visit On: 26-Dec-2011 10:02 Encounter Reason: Foot Problem - This condition occurred without any known injury. Symptoms include foot pain. Symptoms are located in the right foot. Onset was 4 day(s) ago. The symptoms occur constantly. The patient de End: 26-Dec-2011 10:33 scribes symptoms as mild and improving. Symptoms are exacerbated by weight bearing and walking. Symptoms are relieved by immobilization and rest.Encounter Diagnosis: Ankle/Foot Pain (719.47) [facility] Office Visit On: 27-Nov-2011 10:02 Encounter Reason: Follow up acute care visit - The patient feeling better since last seen and improving. Patient has been compliant with instructions. Current medication use: no side effects and compliant with dosing reg End: 27-Nov-2011 21:54 imen. Patient sleeps 7 hours per night. Impact of disease: emotional impact-moderate. Nutrition: balanced diet and supplemental vitamins. The medical issues the patient is following up for include other (fever, flu like sx. ).Encounter Diagnosis: Benign essential hypertension (401.1), Epigastric pain (789.06), FEVER (780.6), Diarrhea (787.91) [facility] Office Visit On: 14-Nov-2011 14:48 Encounter Diagnosis: SYMPTOM, FEVER, UNSPECIFIED (780.60), Benign essential hypertension (401.1) End: 14-Nov-2011 15:25 [facility] Office Visit On: 31-Oct-2011 13:12 Encounter Reason: Sinusitis/ - The duration of the symptoms are 5 days The course has been constant. The sinusitis/ has no relieving factors. Associated features include The symptoms have been associated with nasal disch End: 31-Oct-2011 13:29 arge/stuffy nose and sinus pain.Encounter Diagnosis: Sinusitis,acute (461.9), Benign essential hypertension (401.1) [facility] Office Visit On: 06-Oct-2011 13:56 Encounter Reason: Follow up acute care visit - The patient feeling better since last seen and improving. Patient has been compliant with instructions. Current medication use: no side effects. Patient sleeps 7 hours per n End: 06-Oct-2011 14:28 ight. Impact of disease: emotional impact-moderate. Nutrition: balanced diet and supplemental vitamins. The medical issues the patient is following up for include high blood pressure.Encounter Diagnosis: Disorder, delusional (297.1), ANXIETY STATE NOS (300.00), Hyperlipidemia (272.4), Benign essential hypertension (401.1) [facility] Office Visit On: 14-Sep-2011 13:14 Encounter Diagnosis: Benign essential hypertension (401.1), Sleep disorder (780.50), Lumbago (724.2) End: 14-Sep-2011 14:02 [facility] Office Visit On: 25-Aug-2011 9:54 Encounter Reason: Follow up acute care visit - The patient feels the same. Patient has been compliant with instructions. Current medication use: no side effects and compliant with dosing regimen. Patient sleeps 7 hours p End: 25-Aug-2011 10:29 er night. Impact of disease: emotional impact-moderate. Nutrition: balanced diet and supplemental vitamins. The medical issues the patient is following up for include depression (anxiety) and high blood pressure.Encounter Diagnosis: ANXIETY STATE NOS (300.00), Elevated Blood Pressure without diagnosis of Hypertension (796.2), Benign essential hypertension (401.1) [facility] Office Visit On: 10-Aug-2011 11:56 Encounter Reason: high blood pressure - The patient has experienced high blood pressure for hours. The symptoms have been associated with anxiety (while getting the mammogram) and family history of hypertension, while t End: 10-Aug-2011 12:22 he symptoms have not been associated with excessive caffeine intake, obesity, use of nasal decongestants, use of oral contraceptives or use of steroids. blood pressure range : (at f this am- 156/100 and 182/110).Encounter Diagnosis: Elevated Blood Pressure without diagnosis of Hypertension (796.2), ANXIETY STATE NOS (300.00) [facility] Office Visit On: 11-Jul-2011 14:34 Encounter Reason: Skin Problems - The onset of the problems has been sudden and they have been occurring in an intermittent pattern for 2 days. The course has been increasing. The problem is characterized as other (?).Encounter Diagnosis: End: 11-Jul-2011 15:13 ANXIETY STATE NOS (300.00) [facility] Office Visit On: 16-Jun-2011 10:21 Encounter Reason: Abdominal pain - The pain has been occurring for 3 weeks. The pain is described as crampy. The pain is described as being located in the upper abdomen. The symptoms have no aggravating factors.Encounter Diagnosis: End: 16-Jun-2011 11:28 Stress Reaction (308.4), Disorder, delusional (297.1), Epigastric pain (789.06) [facility] Office Visit On: 01-Jun-2011 11:14 Encounter Reason: Follow up ER - Reason for hospitalization note: (CP -- sent home with naproxen). Patient has been compliant with instructions. Current medication use: no side effects. The patient feels well with minor End: 01-Jun-2011 11:52 complaints. Patient sleeps 6 hours per night.Encounter Diagnosis: Chest pain (786.59), BRONCHITIS, NOT SPECIFIED ACUTE OR CHRONIC (490.) [facility] Office Visit On: 25-Apr-2011 16:06 Encounter Diagnosis: Need for prophylactic vaccination and inoculation against influenza (V04.81) End: 25-Apr-2011 19:00 [facility] Office Visit On: 25-Apr-2011 15:38 Encounter Diagnosis: Work Physical (V70.3) End: 25-Apr-2011 15:57 [facility] Office Visit On: 05-Apr-2011 10:58 Encounter Reason: Cough - The onset of the cough has been sudden. The cough is characterized as productive of mucoid sputum. The amount of sputum produced is scanty. The cough occurs all the time. The symptoms have been End: 05-Apr-2011 11:30 associated with fever, headache and hoarseness, while the symptoms have not been associated with sore throat or wheezing. the color of the sputum is yellowish.Encounter Diagnosis: Cough (786.2), Sinusitis,acute (461.9) [facility] Office Visit On: 27-Mar-2011 14:18 Encounter Diagnosis: Warts (078.10) End: 27-Mar-2011 14:29 [facility] Office Visit On: 13-Mar-2011 13:20 Encounter Reason: Injections - The medication the patient is here to receive is other (flu and ppd).Encounter Diagnosis: Need for prophylactic vaccination and inoculation against influenza (V04.81) End: 13-Mar-2011 17:37 [facility] Lab Order On: 10-Mar-2011 13:29 Encounter Reason: Injections - The medication the patient is here to receive is other (ppd injection).Encounter Diagnosis: SCREENING FOR TB (V74.1) End: 10-Mar-2011 14:51 [facility] Office Visit On: 23-Feb-2011 12:27 Encounter Reason: Cough - The last clinic visit was 3 day(s) ago. No changes in management were made at the last visit. Symptoms include cough, stuffy nose and sore throat. The cough is described as moist and productive. End: 23-Feb-2011 14:06 Cough onset was sudden 3 day(s) ago. The cough occurs intermittently. Symptoms are described as mild and unchanged. The patient is not currently being treated for this problem.Encounter Diagnosis: BRONCHITIS, NOT SPECIFIED ACUTE OR CHRONIC (490.) [facility] Office Visit On: 06-Feb-2011 15:45 Encounter Reason: Warts, Unspecified - The lesions are located on the left hand (left index finger). Onset was sudden 2 week(s) ago. The patient describes this as mild and becoming larger. Associated symptoms do not incl End: 06-Feb-2011 16:05 ude itching, bleeding or irritation. The patient is not currently being treated for this problem. Pertinent medical history includes previous history of warts, while pertinent medical history does not i nclude contact exposure to warts, HIV infection, impaired immunity or squamous cell carcinoma of the skin.Encounter Diagnosis: Warts (078.10) [facility] Office Visit On: 15-Dec-2010 12:56 Encounter Reason: Follow up, Laboratory Test Results - Lab results: abnormal blood lipids. Date: (11-16-10). Current symptoms/reason for visit include/s Follow up visit with no current symptoms.Encounter Diagnosis: Hyperlipidemia (272.4), End: 15-Dec-2010 13:39 Elevated Blood Pressure without diagnosis of Hypertension (796.2), Stress Reaction (308.4) [facility] Office Visit On: 08-Nov-2010 9:27 Encounter Reason: Follow up for chronic medical issues - The patient does not feel well, has decreased energy level and is sleeping poorly. Patient has been compliant with instructions. Patient sleeps 5 hours per night. End: 08-Nov-2010 10:00 Impact of disease: emotional impact-mild. Nutrition: balanced diet and supplemental vitamins. The medical issues the patient is following up for include depression and high blood pressure.Encounter Diagnosis: Stress Reaction (308.4), Elevated Blood Pressure without diagnosis of Hypertension (796.2), Hypertriglycerides (272.1), WWV V70.0 (Renamed from WWV) [facility] Office Visit On: 28-Oct-2010 9:12 Encounter Reason: Follow up ER - Reason for hospitalization abdominal pain. Patient has been compliant with instructions. Current medication use: no side effects, compliant with dosing regimen and considered effective by End: 28-Oct-2010 9:50 patient. The patient feels well with minor complaints, has decreased energy level and is sleeping well. Patient sleeps 10 hours per night. Nutrition: balanced diet.Encounter Diagnosis: Elevated Blood Pressure without diagnosis of Hypertension (796.2), Viral infection, unspecified (079.99) [facility] Office Visit On: 14-Oct-2010 9:42 Encounter Reason: Sinusitis/ - The duration of the symptoms are 2 2 days The course has been increasing. The sinusitis/ has no relieving factors. Associated features include The symptoms have been associated with cough, End: 14-Oct-2010 10:15 ear pain, nasal discharge/stuffy nose and sinus pain.Encounter Diagnosis: Viral infection, unspecified (079.99) [facility] Office Visit On: 19-Sep-2010 10:45 Encounter Reason: Reason for seeking medical attention - Patient is seeking medical attention for treatment of other (chest tightness). The patient states the problem began suddenly. The patient states that the problem h End: 19-Sep-2010 11:45 as persisted for 1 day (last night, the kids had friends over). Patient states the problem is getting worse. The patient rates the problem as serious. The patient reports additional symptoms of feeling tired (d/t lack of sleep ) and trouble sleeping ( I changed my clothes a few times ) while the patient reports the absence of symptoms of cough, feeling of sadness, increased stress or trouble breathing.Encounter Diagnosis: Abdominal Pain,LLQ (789.04) [facility] Office Visit On: 17-Aug-2010 13:05 Encounter Reason: Lower back pain - The onset of the pain has been sudden and has been occurring in an intermittent pattern for 2 weeks. The course has been increasing. The pain is characterized as a dull ache. The pain End: 17-Aug-2010 13:35 is described as being located in the sacral area. The pain does not radiate. There are no precipitating factors. The symptoms have no aggravating factors. The symptoms have no relieving factors. The pain has been associated with back stiffness. Encounter Diagnosis: Sinusitis,acute (461.9), Lumbago (724.2) [facility] Office Visit On: 08-Aug-2010 11:31 Encounter Reason: Follow up acute care visit - The patient feeling better since last seen and improving. Patient has been compliant with instructions. Current medication use: no side effects and compliant with dosing reg End: 08-Aug-2010 11:53 imen. Patient sleeps 7 hours per night. Impact of disease: emotional impact-moderate. Nutrition: balanced diet and supplemental vitamins. The medical issues the patient is following up for include other (vertigo ).Encounter Diagnosis: VERTIGO, BENIGN PAROXYSMAL POSITION (386.11), [facility] V70.0 (Renamed from [facility]) [facility] Medicine Office Visit On: 25-Jul-2010 11:01 Encounter Reason: Vertigo - The onset of the vertigo has been sudden and has been occurring in an intermittent pattern for days. The course has been recurrent. The vertigo is characterized as lightheadedness. The vertigo End: 25-Jul-2010 11:53 is precipitated by head turning. The symptoms have been associated with loss of balance ( feels like it, but no falls ), nausea and use of sedatives (trazadone), while the symptoms have not been associated with headache or tinnitus. Encounter Diagnosis: VERTIGO, BENIGN PAROXYSMAL POSITION (386.11) [facility] Office Visit On: 27-Jun-2010 11:47 Encounter Reason: Cough - The onset of the cough has been acute and has been occurring in a persistent pattern for days (5). The course has been constant. The cough is characterized as productive of mucoid sputum. The sy End: 27-Jun-2010 13:28 mptoms have been associated with headache and runny nose. Note for Cough: cough up yellow. some nasal drainage not yellowEncounter Diagnosis: BRONCHITIS, NOT SPECIFIED ACUTE OR CHRONIC (490.) [facility] Office Visit On: 20-Jun-2010 11:31 Encounter Diagnosis: Rash (782.1) End: 20-Jun-2010 12:20 [facility] Phone Encounter On: 16-May-2010 15:10 Encounter Diagnosis: Chest pain (786.59) End: 16-May-2010 15:16 [facility] Office Visit On: 16-May-2010 11:10 Encounter Reason: Chest pain - The onset of the pain has been sudden and has been occurring in an increasing pattern for 1 day. The pain is described as a mild sharp pain. The pain is described as being located in the le End: 16-May-2010 12:13 ft chest. The pain does not radiate. There are no precipitating factors. The symptoms have no aggravating factors. The symptoms are relieved by nothing (heat). The symptoms have been associated with evelyn ast pain and dizziness (this am), while the symptoms have not been associated with abdominal pain, cough, dyspnea, fever, headache, nausea, neck pain, palpitations, shoulder pain, syncope, vomiting, whe ezing or heartburn. Note for Chest pain: started yesterday and was doing computer work- has come and gone- worse if leans forward- no gerd- little cough - mild- no wheeze or sob- activiity doesnt brin g it on- doesnt hurt to breath- only meds are aspirin and trazadone- she hasnt tried anything for this- doesnt hurt now- she cant reproduce by leaning forward but sometimes when leans forward it comes o n - tight not sharp or dull- cant reproduce by touchingEncounter Diagnosis: Chest pain (786.59), Need for prophylactic vaccination and inoculation against influenza (V04.81) [facility] Office Visit On: 02-May-2010 12:54 Encounter Reason: Eye redness - The onset of the eye redness has been sudden and has been occurring in a persistent pattern for 2 days. The course has been constant. The eye redness is described as moderate.Encounter Diagnosis: End: 02-May-2010 13:40 Conjunctivitis NOS (372.30) [facility] Office Visit On: 31-Mar-2010 11:49 Encounter Diagnosis: Lumbago (724.2) End: 31-Mar-2010 12:00 [facility] Office Visit On: 21-Mar-2010 9:59 Encounter Reason: sciatica - The leg pain began suddenly and has been occurring for 4 days (4-5). The symptoms have been occurring in an increasing pattern. The symptoms are described as a shooting pain and are moderate End: 21-Mar-2010 10:50 in severity. There is involvement of the buttocks (left). There are no precipitating factors. Relief is provided by aspirin (didn't help that much. Before DB prescribed a muscle relaxer and I don't know if that will help or not.). Note for sciatica: was sitting last week studying for a long time- alot of pain in low back- sitting or turning makes worse- no pain in leg- - no weakness or numbness now in leg- no fever- has had years ago- no loss of bowel bladder control- doesnt hurt if walks same positionEncounter Diagnosis: Lumbago (724.2) [facility] Office Visit On: 16-Mar-2010 11:26 Encounter Reason: Earache - The onset of the pain has been sudden and has been occurring in a persistent pattern for 3 weeks. The course has been increasing. The pain is described as a moderate pressure. The pain is desc End: 16-Mar-2010 12:30 ribed as being located in the inner ear. The pain is felt in the left ear. The symptoms have been associated with decreased hearing and inability to 'pop' ear drum, while the symptoms have not been asso ciated with chills ,fever ,sinus problems or sore throat. Encounter Diagnosis: Cerumen impaction (380.4) [facility] Office Visit On: 14-Feb-2010 10:21 Encounter Reason: Follow up for chronic medical issues - The patient does not feel well ,has decreased energy level and is sleeping poorly. Patient has been compliant with instructions. Patient sleeps 5 hours per night. End: 14-Feb-2010 10:49 Impact of disease: emotional impact-moderate. Nutrition: balanced diet and supplemental vitamins. The medical issues the patient is following up for include depression (anxiety) ,gastric reflux and other (disorder delusional). Encounter Diagnosis: Disorder, delusional (297.1), Hypertriglycerides (272.1), Stress Reaction (308.4), Sleep disorder (780.50) [facility] Office Visit On: 09-Dec-2009 7:26 Encounter Diagnosis: Proteinuria (791.0), Urinary frequency (788.41) End: 09-Dec-2009 7:45 [facility] Office Visit On: 14-Oct-2009 9:38 Encounter Reason: Follow up acute care visit - The patient feeling better since last seen and improving. Patient has been compliant with instructions. Patient sleeps 8 hours per night. Impact of disease: emotional impact End: 14-Oct-2009 10:04 -mild. Nutrition: balanced diet and supplemental vitamins. The medical issues the patient is following up for include other (depression, delusional, headace). Encounter Diagnosis: Stress Reaction (308.4), Disorder, delusional (297.1), Hypertriglycerides (272.1) [facility] Office Visit On: 28-Sep-2009 8:40 Encounter Reason: Follow up for chronic medical issues - The patient does not feel well and has decreased energy level. Patient has been compliant with instructions. Patient sleeps 7 hours per night. Impact of disease: e End: 28-Sep-2009 9:42 motional impact-mild. Nutrition: balanced diet and supplemental vitamins. The medical issues the patient is following up for include depression (anxiety) ,high blood pressure and other (delusional disorder, allergic rhinitis). Encounter Diagnosis: Urinary frequency (788.41), Disorder, delusional (297.1), Headache (784.0) [facility] Office Visit On: 05-Aug-2009 11:48 Encounter Diagnosis: Disorder, delusional (297.1) End: 05-Aug-2009 12:16 [facility] Office Visit On: 04-Aug-2009 10:52 Encounter Reason: Sinus pain - The onset of the pain has been acute and has been occurring in a persistent pattern for 1 days. The course has been increasing in severity. The pain is characterized as tightness and a pres End: 04-Aug-2009 11:27 sure sensation. The pain is described as being located in the frontal area. Note for Sinus pain: ear got better- but alot of sinus pressure in maxillary- had some blood- no fever-Encounter Diagnosis: Sinusitis,acute (461.9) [facility] Office Visit On: 23-Jul-2009 10:59 Encounter Diagnosis: Headache (784.0) End: 23-Jul-2009 11:51 [facility] Office Visit On: 01-Jul-2009 11:41 Encounter Reason: Headache/ - The onset of the headache/ has been sudden and has been occurring in a persistent pattern for days. The course has been constant. The headache/ is characterized as a dull ache ( like stomac End: 01-Jul-2009 12:27 h cramps). The headache/ is experienced later in the day. The headache/ is described as being located in the back of head. The symptoms are aggravated by neck movement, but not by noise or bright light . The symptoms have been associated with neck pain and neck stiffness, while the symptoms have not been associated with anxiety or vertigo. Encounter Diagnosis: Symptom, Weakness (728.87), Headache (784.0), Elevated Blood Pressure without diagnosis of Hypertension (796.2) [facility] Office Visit On: 28-Jun-2009 13:30 Encounter Reason: Earache - The onset of the pain has been sudden and has been occurring in a persistent pattern for 2 days. The course has been constant. The pain is described as a mild dull aching and sharp pain. The p End: 28-Jun-2009 14:12 ain is described as being located in the inner ear. The pain is felt in the right ear. There has been no associated chills ,decreased hearing ,fever ,inability to 'pop' ear drum ,non-purulent discharge from ear ,purulent discharge from ear ,sinus problems or sore throat. Note for Earache: not swimmer - but thinks from baths- no fever- feeling better using old drops- but ran ou of dropsEncounter Diagnosis: Otitis externa, unspecified (380.10) [facility] Office Visit On: 10-May-2009 13:06 Encounter Reason: Flu like symptoms - The onset of the flu like symptoms has been gradual and they have been occurring in a persistent pattern for 1 weeks. The course has been increasing. The flu like symptoms are described as moderate. End: 10-May-2009 16:56 Encounter Diagnosis: FEVER (780.6), GASTROENTERITIS (558.9), Diarrhea (787.91) [facility] Office Visit On: 15-Mar-2009 10:07 Encounter Reason: Follow up, Diagnostic Procedure Results - Diagnostic tests include other (upper GI ). Date: (02-26-09). Current symptoms include abdominal pain (intermittent ). Past medical history includes other (GERD ). Encounter Diagnosis: End: 15-Mar-2009 10:49 Epigastric pain (789.06) [facility] Office Visit On: 22-Feb-2009 11:27 Encounter Diagnosis: Epigastric pain (789.06) End: 22-Feb-2009 12:01 [facility] Historical Summary On: 08-Dec-2008 17:06 Encounter Diagnosis: Unspecified temporomandibular joint disorders (524.60) End: 08-Dec-2008 17:09 [facility] Office Visit On: 07-Dec-2008 16:11 Encounter Reason: Rash - The onset of the rash has been acute and has been occurring in a persistent pattern for 1 weeks. The course has been constant. The rash is characterized as red. The rash was first seen on the upp End: 07-Dec-2008 17:03 er extremity. It spread to the neck. There has been associated itching. , [ADDITIONAL REASON] Dizziness/ - The onset of the dizziness/ has been acute and has been occurring i n a persistent pattern for 1 days. The course has been constant. The dizziness/ is characterized as lightheadedness. The dizziness/ is relieved by laying down (rest). Encounter Diagnosis: Nausea/Vomiting (787.01), Viral infection, unspecified (079.99), Rash (782.1), GASTROENTERITIS (558.9) [facility] Office Visit On: 06-Nov-2008 10:06 Encounter Reason: Follow up acute care visit - The patient feeling better since last seen and improving. Patient has been compliant with instructions. Current medication use: no side effects ,compliant with dosing regime End: 06-Nov-2008 10:23 n and considered effective by patient. Patient sleeps 7 hours per night. Impact of disease: emotional impact-mild. Nutrition: balanced diet. The medical issues the patient is following up for include other (epigastric pain ). Encounter Diagnosis: Epigastric pain (789.06), Lumbago (724.2) [facility] Historical Summary On: 26-Oct-2008 12:56 [facility] End: 26-Oct-2008 12:57 Office Visit On: 22-Oct-2008 12:45 Encounter Diagnosis: Lumbago (724.2), Epigastric pain (789.06) End: 22-Oct-2008 13:08 [facility] Office Visit On: 28-Sep-2008 14:09 Encounter Reason: Ear infection - The onset of the ear infection has been acute and has been occurring in a persistent pattern for 16 hours. The course has been constant. The ear infection is described as moderate. Encounter Diagnosis: End: 28-Sep-2008 14:46 Otitis externa, unspecified (380.10), TMJ [facility] Office Visit On: 24-Aug-2008 10:18 Encounter Reason: Mouth ulcers - The onset of the mouth ulcers has been gradual and has been occurring in an intermittent pattern for 1 months. The course has been recurrent. The mouth ulcers are observed in the lips ,th End: 24-Aug-2008 12:18 e gums and the buccal mucosa. The mouth ulcers are described as painless. The symptoms have been associated with skin rash (WHITE DRY PATCHES THAT COME AND GO INSIDE OF THE MOUTH). Encounter Diagnosis: Lesion-Unknown behavior (238.2) [facility] Office Visit On: 27-Jul-2008 11:06 Encounter Diagnosis: Eye change End: 28-Jul-2008 15:27 [facility] Office Visit On: 10-Apr-2008 8:24 Encounter Reason: Flu like symptoms - The onset of the flu like symptoms has been acute and they have been occurring in a persistent pattern for 1 weeks. The course has been constant. The flu like symptoms are described End: 10-Apr-2008 9:34 as moderate. Note for Flu like symptoms: start with vomit and diarrhea. head not feel goodno sore throat or nasal congestion. vomt only that one day. trouble going to sleep. unusal--feel disturbing th oughts, funny in head. use bonine to help. still nausea no vomiting. always had diarrhea in past with certain diet. bowels changed. no able pain. not eat anything different. no one else sick no fever.Encounter Diagnosis: Viral infection, unspecified (079.99), Nausea (787.02) [facility] Office Visit On: 16-Oct-2007 13:13 Encounter Reason: Foot Pain - The onset of the foot pain has been sudden and has been occurring in an intermittent pattern for 1 months. The course has been worsening. The foot pain is moderate. The foot pain is characte End: 16-Oct-2007 13:51 rized as a sharp stabbing. The foot pain is described as being located in the great toe (big toe only at night. If I press on it under the nail is very painful). The pain has not been relieved by anythi ng. There has been no associated giving way or swelling. There have been no previous diagnostic tests. There have been no previous evaluations. These has been no previous physical therapy. There have been no previous surgeries. Encounter Diagnosis: Foot pain (729.5) [facility] Office Visit On: 04-Jun-2007 11:51 Encounter Diagnosis: Hematoma of finger End: 04-Jun-2007 12:17 [facility] Office Visit On: 25-Apr-2007 8:45 Encounter Reason: Follow up, Laboratory Test Results - Lab results: abnormal blood lipids. Date: (03-29-07). Current symptoms/reason for visit include/s Follow up visit with no current symptoms. Encounter Diagnosis: Dizziness, End: 25-Apr-2007 9:13 Elevated Blood Pressure without diagnosis of Hypertension (796.2), Hypertriglycerides (272.1), WWV, Sinusitis,acute (461.9) [facility] Office Visit On: 28-Mar-2007 10:18 Encounter Reason: Dizziness/ - The onset of the dizziness/ has been gradual and has been occurring in an intermittent pattern for 3 weeks. The course has been recurrent. The dizziness/ is characterized as spinning of the End: 28-Mar-2007 10:54 environment. The dizziness/ is precipitated by position change (sitting and studying and neck bent forward it comes on per pt.). The symptoms have been associated with nausea (0nce or twice), while the symptoms have not been associated with anxiety ,cerebrovascular disease ,circumoral paresthesia ,depression ,diabetes mellitus ,diplopia ,ear infection ,facial paralysis ,fasting ,fever ,headache ,david temesis ,loss of balance ,loss of hearing ,melena ,neurologic disease ,palpitations ,paresthesia ,recent head trauma ,seizures ,sensation of fullness ,sweating ,syncope ,tinnitus ,use of diuretics ,use of sedatives ,use of tranquilizers or vomiting. Note for Dizziness/: decribe as movement in head, at first start few weeks ago worse better, no other neuro signs and symptoms , [ADDITIONAL REASON] Physical female exam - Last seen more than 1 year ago. General health: feels well with minor complaints ,has good energy level and is sleeping poorly. The patient's appetite is norm al. Nutrition: normal/adequate. Exercises 1 days per week. Sleeps on average 6 hours per night. Normal bowel and bladder habits. Safety measures include appropriate use of safety belts ,appropriate use of helmets and home smoke detectors , but do not include counseling regarding safe sex/HIV or counseling regarding substance abuse. There are no current emotional problems. screening, mammography (2004) and screening, Pap smear (2004). Encounter Diagnosis: Dizziness (780.4), Elevated Blood Pressure without diagnosis of Hypertension (796.2), Hypertriglycerides (272.1), WWV [facility] Historical Summary On: 25-Mar-2007 13:03 [facility] End: 25-Mar-2007 13:06 Payers MICHAEL BRAGG; deon guarantor
--- OUTSIDE RECORDS SUMMARY | 2018-07-20 17:04 | XMS RPT_ITS ---
:1960 Author Organization OHIP Care Team Providers Name Role Phone SELINA SCHULTZ Referring Unavailable DAKOTAH BEARDEN Attending Unavailable DAKOTAH BEARDEN Referring Unavailable Selina Schultz MD Attending Unavailable Bonececy OTT, Selina Allred Referring Unavailable Boneearli Selina OTT Consulting Unavailable Selina Schultz Attending Unavailable Lynsey, Selina Primary Care Unavailable Selina Schultz Referring Unavailable Selina Schultz Attending Unavailable BoneSelina sam Referring Unavailable Boneearli, Selina Primary Care Unavailable BoneSelina sam Attending Unavailable BoneSelina sam Referring Unavailable Bonezzi, Selina Primary Care Unavailable BoneSelina sam Attending Unavailable BoneSelina sam Referring Unavailable Boneearli, Selina Primary Care [facility] Employee Attending Unavailable Purpose Purpose PROBLEMS PROBLEMS DATE TYPE CONDITION / CODE ATTENDING STATUS SOURCE 05/27/2018 Unknown N18.3 - Chronic Selina Schultz Active [place] kidney disease, Community stage 3 Hospital (moderate) / Repository N18.3(ICD-10) 05/08/2018 Unknown M54.5 - Low back Selina Schultz Active [place] pain / Community M54.5(ICD-10) Hospital Repository 01/04/2018 Unknown R80.9 - Bonezzi, Selina Active [place] Proteinuria, Community unspecified / Hospital R80.9(ICD-10) Repository 09/18/2017 Active Unknown / NA Active [facility] UNK(Unknown) Main [place] Repository PROCEDURES PROCEDURES No Procedure Records FoundVITAL SIGNS VITAL SIGNS No Vital Signs Records FoundRESULTS RESULTS RENAL PROFILE Collected: 05/27/2018 Status: F Source: [place] 9:[address] [facility] REPOSITORY TYPE CODE TESTS RESULT OUT OF RANGE REFERENCE UNITS LAB L501.0100 74-106 mg/dL High GLU 195 Result Comment: Fasting Glucose result greater than or equal to 126 mg/dL suggests DIABETES MELLITUS per A.D.A. criteria. Please note revised GLUCOSE reference range effective 2017. LAB L501.1000 7-18 mg/dL High BUN 33 LAB L501.1100 0.55-1.02 mg/dL High CREAT,SERUM 1.80 Result Comment: The validity of the calculated GFR AND GFRAA in patients over 70 years has not been determined. Clinical correlation is essential. LAB L501.1110 >60 mL/min Low EST GFR 31 Result Comment: Non- GFR Calc LAB L501.1115 >60 mL/min Low EST GFR - AA 37 Result Comment: GFR Calc LAB L501.1300 10-20 RATIO Normal BUN/CRE 18.3 LAB L501.1800 3.2-5.0 g/dL Normal ALB 4.0 LAB L501.2200 8.5-10.1 mg/dL CA Normal 9.0 LAB L501.2300 2.5-4.9 mg/dL Normal PHOS 3.7 LAB L501.5300 136-145 mmol/L NA Normal 140 LAB L501.5600 3.5-5.1 mmol/L K Normal 4.1 LAB L501.5900 98-107 mmol/L CL Normal 107 LAB L501.6100 21.0-32.0 mmol/L Normal CO2 24.0 Performed By: #### L500.3600 #### [facility] [address] [place], [address] MAGNESIUM Collected: 05/27/2018 Status: F Source: [place] 9:[address] [facility] REPOSITORY TYPE CODE TESTS RESULT OUT OF RANGE REFERENCE UNITS LAB L501.5200 1.6-2.6 mg/dL Normal MG 2.0 Performed By: #### L501.5200 #### [facility] [address] [place], [address] PT D/C SUMMARY (1) Observed: 05/03/2018 Status: F Source: [place] 1:[address] [facility] REPOSITORY [facility] [address] [place] [address] Fax REHABILITATION SERVICES DISCHARGE SUMMARY MR#: [id number] Acct: [id number] Name: ROX BURGOS Rep #: [id number] : 1960 58 From: Angel Tripp PT, ATC Referring Dr.: Selina Schultz MD Status: REG RCR Insurance: [employer] SELF PAY INSURANCE HP - PT D/C Summary It has been my pleasure to treat ROX BURGOS under orders from Selina Schultz, for the diagnosis of LBP for a total of 4 visit(s). Discharge Date: Please see the following information for a summary of their discharge [...] x 50% to aid with IADL's Goal Progress: Goal Met Goal 2:: Increase L/S ROM x 1 grade to aid with IADL's Goal Progress: Goal Met Goal 3:: I with HEP Goal Progress: Goal Met - Plan Plan: discharge - D/C Information If there are questions or concerns regarding this patient's physical therapy, please feel free to call me at [phone]. Thank you for the referral of this patient. Sincerely, Angel Tripp PT, <Electronically signed by Angel Tripp PT, ATC> 05/03/18 1349 CC: Selina Schultz MD [facility] Signed INITAL EVALUATION (1) Observed: 04/12/2018 Status: F Source: [place] - PT 4:[address] [facility] REPOSITORY [facility] [address] [place] [address] Fax REHABILITATION SERVICES INITIAL EVALUATION MR#: [id number] Acct: [id number] Name: ROX BURGOS Rep #: [id number] : 1960 58 From: Angel Tripp PT, ATC Referring Dr.: Selina Schultz MD Status: REG RCR Insurance: [employer] SELF PAY INSURANCE Patient's Visit Information ROX BURGOS is a 58 year old F referred to Physical Therapy by Selina Schultz with a diagnosis of LBP. Date of Evaluation: 04/12/18 Physical Therapist: Angel Tripp, PT, - Visit Plan Frequency: 1x/Week Duration: [...] performed at this time. 1/10 pain while sitting her at rest, 8/10 at worst (going to the restroom) - Pain LBP Pain Intensity (Out of 10): 1 Pain Intensity Range: 8 - Objective Neuro: B LE sensation is WNL to light touch. B patellar reflex= 2/3. LE MMT: B LE's 5/5 throughout. L/S ROM: Pt is severely limited with ext and flexion. repeated movements: REIL abolished all pain in LB 10x2 - Goals Goal 1:: Decrease LBP x 50% to aid with IADL's Goal Time Frame: 2-4 Weeks Goal 2:: Increase L/S ROM x 1 grade to aid with IADL's Goal Time Frame: 2-4 Weeks Goal 3:: I with HEP Goal Time Frame: 2-4 Weeks - Rehabilitation Potential Physical Therapy Diagnosis: Pt has LBP and diff with IADL's secondary to L/S disc derrangement Rehabilitation Potential: Good - Anticipated Interventions Patient/Client Instruction: Educate patient on: Condition, Plan of Care For the Purpose of:: To improve self management Therapeutic Exercise to Include: Strength training, Endurance training, Body mechanics, Postural training, Dynamic Lumbar Stabilization For the Purpose of:: To decrease pain, To increase ROM, [...] to be FAXED BACK to us at [phone] for Medicare purposes. Please let me know if there are questions or concerns regarding this plan of care. Physician Signature: Date: <Electronically signed by Angel Tripp PT, ATC> 04/12/18 1603 CC: Selina Schultz MD [facility] Signed For Medicare only, by signing this I certify the plan of care. Physicians Signature Date RENAL ARTERY DUPLEX Observed: 01/08/2018 Status: F Source: [place] 12:[address] [facility] REPOSITORY [facility] Cardiovascular Services [address] [place] [address] Renal Artery Duplex Ultrasound 01/07/18 0801 MR#: [id number] Acct: [id number] Name: ROX BURGOS Rep #: [id number] : 1960 57 From: Manuel Solano MD Attending Dr: Selina Schultz MD Status: REG CLI Ordering Dr: Selina Schultz MD Date: 01/07/18 Location: CVS Sex: F A Admitted: Reason For Study: Acute Renal Insufficiency Right Renal Artery Left Renal Artery Right renal artery ostium 109/39 Left renal artery ostium 72/21 RSV/EDV. PSV/EDV. Right renal artery proximal 87/21 Left renal artery proximal PSV/EDV PSV/EDV. 68/22 . Right renal artery mid 114/36 Left renal artery mid 76/23 PSV/EDV. PSV/EDV . Right renal artery distal 115/41 Left renal artery distal 66/23 PSV/EDV. PSV/EDV. Right RAR 1.59. Left RAR 1.06. Right Renal Parenchyma Left Renal Parenchyma Upper Pole Medula 36/14 PSV/EDV. Left upper pole medulla 22/9 Right upper pole medulla EDR 0.39 . PSV/EDV . Right upper pole medulla R.I. Left upper pole medulla EDR 0.41 . 0.61 . Left upper pole medulla R.I. 0.58 . Upper Srikanth Cortx 20/9 PSV/EDV. UP Cortex 17/6 PSV/EDV. Right upper pole cortex EDR 0.45 . Left upper pole cortex EDR 0.35 . Right upper pole cortex R.I. 0.53 . Left upper pole cortex R.I. 0.67 . Right lower Pole medulla 23/7 Left lower Pole medulla 18/6 PSV/EDV . PSV/EDV . Right lower pole medulla EDR 0.30 . Left lower pole medulla EDR 0.33 . Right [...] kidney size 9.11 cm . Left cortical dimension 1.37 cm . Right cortical dimension 1.35 cm . Aorta Proximal abdominal aorta 1.98cm x 1.76 cm . Proximal abdominal aorta peak systolic velocity is 72 cm/sec . Distal abdominal aorta 1.34cm x 1.32 cm . Distal abdominal aorta peak systolic velocity is 57 cm/sec . Interpretation Summary Dimensions of the intra-abdominal aorta appear normal, without evidence of aneurysmal dilatation. Renal artery velocities are bilaterally normal. Acceleration times are normal bilaterally. Renal- aortic ratios are also bilaterally normal. There is no evidence of hemodynamically significant renal artery stenosis on either side. Renovascular resistance appears to be bilaterally normal . Cortical dimensions are bilaterally normal. Kidneys appear normal in size bilaterally. Ordering Physician: Selina Schultz Referring Physician: Selina Schultz Performed By: Destinee Corcoran, RDCS, RVT 01/08/18 1221 Date Manuel Solano MD CC: Selina Schultz MD Date Dictated: 01/07/18 0801 Date Transcribed: 01/08/18 1221 Stone Cutter: Signed KIDNEY AND BLADDER Observed: 01/07/2018 Status: F Source: [place] 8:[address] [facility] REPOSITORY [facility] Imaging Services [address] [place] [address] Kidney and Bladder MR#: [id number] Acct: [id number] Name: ROX BURGOS Rep #: [id number] : 1960 F 57 From: Angel Anderws MD PCP: Selina Schultz MD Status: REG CLI Study: Kidney and Bladder Date of Exam: 01/07/18 Exam# [id number] Ordering Dr: Selina Schultz MD STUDY: RENAL ULTRASOUND - COMPLETE REASON [...] right hydronephrosis. DISTAL RIGHT URETER: There is non-visualization of the distal right ureter. There is [...] volume of 55.4 ml. There is a normal wall thickness of the distended urinary bladder. There is no demonstrated mass within the urinary bladder. There are no demonstrated bladder calculi. US/Kidney and Bladder IMPRESSION: Normal ultrasound of the kidneys and urinary bladder. Electronically Signed: Angel Andrews MD at 22:38 EDT , Service support , CC: Selina Schultz MD Stone Cutter: Signed PROTEIN, URINE 24HR Collected: 01/03/2018 Status: F Source: [place] 8:[address] [facility] REPOSITORY TYPE CODE TESTS RESULT OUT OF RANGE REFERENCE UNITS LAB L501.1850 24.0 HOURS Normal UR COLLECT 24.0 TIME LAB L501.1875 mL Normal UR TOTAL 2425 VOLUME LAB L501.1900 <11.9 mg/dL Normal URINE PROTEIN 9.0 LAB L501.1925 <150 MG/24HR mg/24HR High 24hr UR 218.2 PROTEIN Performed By: #### L500.9000 #### [facility] [address] [place], [place], [address] 24 HR UR CREATININE Collected: 01/03/2018 Status: C Source: [place] CLEARANCE 8:[address] [facility] REPOSITORY TYPE CODE TESTS RESULT OUT OF RANGE REFERENCE UNITS LAB L501.0050 24.0 HOURS Normal UR COLLECT 24.0 TIME LAB L501.0075 mL Normal UR TOTAL 2425 VOLUME LAB L501.1050 0.6-1.0 mg/dL High SERUM CREAT 2.0 LAB L501.1110 >60 mL/min Low EST GFR 28 Result Comment: Non- GFR Calc AMENDED REPORT 01/03/18 1136 EST GFR previously reported as: 27 L mL/min LAB L501.1115 >60 mL/min Low EST GFR - AA 33 Result Comment: GFR Calc AMENDED REPORT 01/03/18 113 EST GFR - AA previously reported as: 27 L mL/min LAB L501.1150 NO RANGE mg/dL EST. URINE Normal CREAT 38.7 LAB L501.1250 100-200 ml/min Low CREAT CLEARANCE 33 Result Comment: AMENDED REPORT 01/03/18 1136 CREAT CLEARANCE previously reported as: 32 L ml/min Performed By: #### L500.4507 #### [facility] [address] [place], [address] SERUM CREATININE AND Collected: 01/03/2018 Status: F Source: [place] GFR 8:[address] [facility] REPOSITORY TYPE CODE TESTS RESULT OUT OF RANGE REFERENCE UNITS LAB L501.1100 0.55-1.02 mg/dL High 1.99 CREAT,SERUM Result Comment: The validity of the calculated GFR AND GFRAA in patients over 70 years has not been determined. Clinical correlation is essential. LAB L501.1110 >60 mL/min Low EST GFR 28 Result Comment: Non- GFR Calc LAB L501.1115 >60 mL/min Low EST GFR - AA 33 Result Comment: GFR Calc Performed By: #### L501.1105 #### [facility] [address] [place], [place], [address] ANTINUCLEAR ANTIBODIES Collected: 01/03/2018 Status: F Source: [place] DIRECT 8:[address] [facility] REPOSITORY TYPE CODE TESTS RESULT OUT OF RANGE REFERENCE UNITS LAB L3100.5475 Negative Normal Negative TONA-DIRECT Result Comment: Performed at: [facility] [id number] Staff Radiologist: Griffin Bennett PhD, Phone: [phone] Performed By: #### L3100.5475 #### [facility] (refer to report for specific site) refer to report for address and phone number PROTEIN ELECTROPH, S Collected: 01/03/2018 Status: F Source: [place] 8:[address] [facility] REPOSITORY TYPE CODE TESTS RESULT OUT OF RANGE REFERENCE UNITS LAB L3100.3500 6.0-8.5 g/dL Normal PROTEIN,TOTAL 7.5 LAB L3100.3600 2.9-4.4 g/dL Normal ALBUMIN 4.1 LAB L3100.3700 0.0-0.4 g/dL Normal ALPHA-1 GLOBUL 0.2 LAB L3100.3800 0.4-1.0 g/dL Normal ALPHA-2 GLOBUL 1.0 LAB L3100.3900 0.7-1.3 g/dL Normal BETA GLOBULIN 1.2 LAB L3100.4000 0.4-1.8 g/dL Normal GAMMA GLOBULIN 1.0 LAB L3100.4110 Normal M-SPIKE Result Comment: Not Observed LAB L3100.4200 2.2-3.9 g/dL GLOBULIN, TOTAL Normal 3.4 LAB L3100.4300 0.7-1.7 A/G RATIO Normal 1.2 LAB L3100.4320 . INTERPRETATION Normal Comment Result Comment: Protein electrophoresis scan will follow via computer, mail, or sprayer hand delivery. LAB L3100.4340 . Normal NOTE: Comment Result Comment: The SPE pattern appears essentially unremarkable. Evidence of monoclonal protein is not apparent. Performed at: [facility] [id number] Staff Radiologist: Griffin Bennett PhD, Phone: [phone] Performed By: #### L3100.3450 #### [facility] (refer to report for specific site) refer to report for address and phone number HEPATITIS C ANTIBODIES Collected: 01/03/2018 Status: F Source: [place] 8:[address] [facility] REPOSITORY TYPE CODE TESTS RESULT OUT OF RANGE REFERENCE UNITS LAB L3100.0650 0.0-0.9 s/co ratio Normal HEP C AB <0.1 Result Comment: Negative: < 0.8 Indeterminate: 0.8 - 0.9 Positive: > 0.9 The CDC recommends that a positive HCV antibody result be followed up with a HCV Nucleic Acid Amplification test (678986). Performed By: #### L3100.0625, L3100.6600, L3600.4000 #### [facility] (refer to report for specific site) refer to report for address and phone number EOSINOPHIL CT. URINE Collected: 01/03/2018 Status: F Source: [place] 8:[address] [facility] REPOSITORY TYPE CODE TESTS RESULT OUT OF RANGE REFERENCE UNITS LAB L3100.6600 . % No Normal EOS CT Eosinophils Seen [id number] Result Comment: <5% few or none seen Performed at: [facility] [id number] Staff Radiologist: Griffin Bennett PhD, Phone: [phone] Performed By: #### L3100.0625, L3100.6600, L3600.4000 #### [facility] (refer to report for specific site) refer to report for address and phone number PROTEIN ELECTRO.UR-RANDOM Collected: Status: F Source: [place] 01/03/2018 8:[address] [facility] REPOSITORY TYPE CODE TESTS RESULT OUT OF RANGE REFERENCE UNITS LAB L3600.4100 Not Estab. mg/dL Normal 22.0 PROTEIN,UR LAB L3600.4200 . % Normal 39.9 ALBUMIN,UR LAB L3600.4300 . % Normal 3.7 AJEAM-0-UNFB ,U LAB L3600.4400 . % Normal 12.2 THYAO-4-GHLT ,U LAB L3600.4500 . % Normal BETA 25.2 GLOB,U LAB L3600.4600 . % Normal GAMMA 19.0 GLOB,U LAB L3600.4720 Normal M-SPIKE,U Result Comment: not observed LAB L3600.4800 . Normal NOTE Comment Result Comment: Protein electrophoresis scan will follow via computer, mail, or sprayer hand delivery. Performed By: #### L3100.0625, L3100.6600, L3600.4000 #### [facility] (refer to report for specific site) refer to report for address and phone number PROGRESS Observed: 11/05/2017 Status: COMPLETED Source: [place] 11:45 AM [facility] [place] REPOSITORY HNO ID: [id number] Author: Dakotah Bearden Service: (none) Author Type: Physician Type: Progress Notes Filed: 11/05/2017 12:25 PM Note Text: Rox Burgos is a 57 year old who presents for her annual gynecologic exam without complaints. Postmenopausal: yes HRT use: No. Last Pap: 2014 normal HPV: 2014 negative History of abnormal pap: No Last mammogram: 2017 normal History of abnormal mammogram: No Sexually active: Yes Obstetric History T2 L2 SAB0 TAB0 Ectopic0 Multiple0 Live Births0 PAST MEDICAL HISTORY Diagnosis Date - Anxiety state, unspecified - Depressive disorder, not elsewhere classified - Hypertension - Type II diabetes mellitus (HCC) PAST SURGICAL HISTORY Procedure Laterality Date - COLONOSCOPY 09/2017 10 year follow up - NUCLEAR STRESS TEST EXERCISE (CARD) 2011 normal FAMILY HISTORY Problem Relation Age of Onset - Stroke Father - Diabetes Mother - Hypertension Mother - Stroke Mother from stroke - Diabetes Brother Couple of brother's with diabetes SOCIAL HISTORY Social History Substance Use Topics - Smoking status: Never Smoker - Smokeless tobacco: Never Used - Alcohol use No REVIEW OF SYSTEMS Abdomen: No abdominal pain, nausea, vomiting, diarrhea, or constipation. No bloating, early satiety, indigestion, or increased flatulence. Bladder: No dysuria, gross hematuria, urinary frequency, urinary urgency, or incontinence Breast: No breast lumps, nipple d/c, overlying skin changes, redness or skin retraction Allergies and current medication updated:Yes EXAM: Ht 5' 1 (1.55m) Wt 140 lb (63.5kg) LMP 03/20/2011 BMI 26.47 kg/(m2). GENERAL: pleasant, female in no apparent distress HEENT: Normocephalic, atraumatic, mucus membranes moist and no lesions NECK: Supple, full range of motion, no adenopathy and thyroid normal DERMATOLOGY: Normal, without lesions, non-icteric and non-hirsute BREAST: soft, non-tender, symmetric, no dominant mass, normal nipple-areolar complex, no lymphadenopathy and no nipple discharge CHEST: Normal inspiratory effort ABDOMEN: soft, non-tender and no masses PELVIC: external genitalia normal, normal Bartholin's glands, urethra, Falcon's glands, no vulvar lesions, no cervical lesions, good vaginal support, physiologic discharge present, normal appearing perineal body and perianal region, tight introitus, thin atrophic epithelium of vagina BIMANUAL: uterus normal size, shape and consistency, no adnexal masses and non-tender RECTOVAGINAL: deferred. NEURO: alert and oriented x3,exam grossly non-focal EXTREMITIES: normal ASSESSMENT/PLAN: 1) Health maintenance: Pap/HPV up to date. Mammogram ordered Colon cancer screening: up to date with screening 2) Follow up one year or sooner as needed Dakotah Bearden MD CNOV Observed: 11/05/2017 Status: COMPLETED Source: [place] 11:40 AM [facility] REPOSITORY Office Visit (WOOB) ROX BURGOS ([id number]) 1960 F Date Time Provider Department 11/05/17 11:40 AM DAKOTAH BEARDEN WOOB During your visit today, we recorded the following information about you: Blood pressure Weight Height 98/60 63.5 kg 1.549 m Dakotah Bearden 11/05/2017 12:25 PM Signed Rox Burgos is a 57 year old who presents for her annual gynecologic exam without complaints. Postmenopausal: yes HRT use: No. Last Pap: 2014 normal HPV: 2014 negative History of abnormal pap: No Last mammogram: 2017 normal History of abnormal mammogram: No Sexually active: Yes Obstetric History T2 L2 SAB0 TAB0 Ectopic0 Multiple0 Live Births0 PAST MEDICAL HISTORY Diagnosis Date - Anxiety state, unspecified - Depressive disorder, not elsewhere classified - Hypertension - Type II diabetes mellitus (HCC) PAST SURGICAL HISTORY Procedure Laterality Date - COLONOSCOPY 09/2017 10 year follow up - NUCLEAR STRESS TEST EXERCISE (CARD) 2011 normal FAMILY HISTORY Problem Relation Age of Onset - Stroke Father - Diabetes Mother - Hypertension Mother - Stroke Mother from stroke - Diabetes Brother Couple of brother's with diabetes SOCIAL HISTORY Social History Substance Use Topics - Smoking status: Never Smoker - Smokeless tobacco: Never Used - Alcohol use No REVIEW OF SYSTEMS Abdomen: No abdominal pain, nausea, vomiting, diarrhea, or constipation. No bloating, early satiety, indigestion, or increased flatulence. Bladder: No dysuria, gross hematuria, urinary frequency, urinary urgency, or incontinence Breast: No breast lumps, nipple d/c, overlying skin changes, redness or skin retraction Allergies and current medication updated:Yes EXAM: Ht 5' 1 (1.55m) Wt 140 lb (63.5kg) LMP 03/20/2011 BMI 26.47 kg/(m2). GENERAL: pleasant, female in no apparent distress HEENT: Normocephalic, atraumatic, mucus membranes moist and no lesions NECK: Supple, full range of motion, no adenopathy and thyroid normal DERMATOLOGY: Normal, without lesions, non-icteric and non-hirsute BREAST: soft, non-tender, symmetric, no dominant mass, normal nipple-areolar complex, no lymphadenopathy and no nipple discharge CHEST: Normal inspiratory effort ABDOMEN: soft, non-tender and no masses PELVIC: external genitalia normal, normal Bartholin's glands, urethra, Falcon's glands, no vulvar lesions, no cervical lesions, good vaginal support, physiologic discharge present, normal appearing perineal body and perianal region, tight introitus, thin atrophic epithelium of vagina BIMANUAL: uterus normal size, shape and consistency, no adnexal masses and non-tender RECTOVAGINAL: deferred. NEURO: alert and oriented x3,exam grossly non-focal EXTREMITIES: normal ASSESSMENT/PLAN: 1) Health maintenance: Pap/HPV up to date. Mammogram ordered Colon cancer screening: up to date with screening 2) Follow up one year or sooner as needed Dakotah Bearden MD Referring Provider: DAKOTAH BEARDEN [[id number]] Allergies As of Date: 11/05/2017 (No Known Allergies) Date Reviewed: 11/05/2017 Reviewed by: Dakotah Bearden - Fully Assessed Reason for Visit: Yearly Exam [187] Visit Diagnoses:Encounter for gynecological examination (general) (routine) without abnormal findings [Z01.419] Encounter for screening mammogram for breast cancer [Z12.31] Order(s):[facility] SCREENING [[id number]] Order #: [id number] FUTURE Prescriptions as of 11/05/2017 Sig: ATORVASTATIN 20 MG TABLET ERGOCALCIFEROL (VITAMIN D2) 5* LOSARTAN 50 MG TABLET METOPROLOL SUCCINATE ER 200 M* Take 200 mg by mouth once michael* PIOGLITAZONE 15 MG TABLET QUETIAPINE 300 MG TABLET METFORMIN 1,000 MG TABLET Take 1 tablet by mouth once d* Patient taking differently: Take 1,000 mg by mouth twice * ACETAMINOPHEN ORAL Take by mouth. Problem List As Of Date 11/05/2017 Noted Resolved FAMILY HX STROKE [Z82.3] INVALID FOR* More... Amenorrhea [N91.2] INVALID FOR*11/05/2017 Weight gain [R63.5] INVALID FOR* Elevated blood pressure [LKZ8108] INVALID FOR* Enlarged uterus [N85.2] INVALID FOR* Medications Discontinued During This Encounter QUEtiapine (SEROQUEL) 100 mg tablet 14 t* 0 03/04/2015 11/05/2017 Route: ORAL Sig: Take 1 tablet by mouth twice daily. Disc: Dosage adjustment metoprolol succinate XL, long acting* 11/05/2017 Class: Historical Med Route: ORAL Sig: Take 50 mg by mouth once daily. Disc: Dosage adjustment Disposition: Return in 1 year (on 11/05/2018) for Annual Exam. Follow-up and Disposition History Recorded Encounter Status:Closed by DAKOTAH BEARDEN MD on 11/05/17 CNCO Observed: 09/18/2017 Status: COMPLETED Source: [place] 1:27 PM [facility] [place] REPOSITORY HNO ID: [id number] Author: Mammography Coordinator Service: (none) Author Type: Physician Type: Letter Filed: 09/19/2017 11:32 PM Note Text: September 18, 2017 PID: [id number] Rox Burgos [address] [place] [address] Dear Ms. Burgos, We are pleased to inform you that the results of your recent breast imaging exam on 09/18/2017 are normal. Early detection of cancer is very important. We also understand recommendations regarding breast cancer screening are controversial. Please discuss with your primary care provider which strategy is best for you and whether a mammogram is right for you. Your imaging studies and report will be kept on file at [facility] as part of your permanent medical record and are available for your continuing care. Thank you for allowing us to help in meeting your health care needs. Sincerely, Dr. Kang Interpreting Radiologist [facility] (Normal over 40) [facility] SCREENING Observed: 09/18/2017 Status: F Source: [place] 12:40 PM [facility] REPOSITORY * * *Final Report* * * DATE OF EXAM: Sep 18 2017 12:40PM [id number] - [facility] SCREENING / PROCEDURE REASON: screening * * * * Physician Interpretation * * * * RESULT: #[id number] - [facility] SCREENING BILATERAL DIGITAL SCREENING MAMMOGRAM WITH CAD: 09/18/2017 HISTORY: Screening\ Screening Mammogram - patient reports NO breast symptoms /priors available for comparison. RESULT: TECHNIQUE: The study was acquired using full field digital technology and interpreted from soft copy. Current study was also evaluated with a Computer Aided Detection (CAD). Comparison is made to exams dated: 09/18/2016 mammogram, 02/19/2015 mammogram, 11/07/2013 mammogram, 09/19/2012 mammogram, and 08/10/2011 mammogram - [facility]. There are scattered fibroglandular elements in both breasts. No significant masses, calcifications, or other findings are seen in either breast. There has been no significant interval change. IMPRESSION: NEGATIVE There is no mammographic evidence of malignancy.A 1 year screening mammogram is recommended. The exam was reviewed by a staff physician. bereket Ellis M.D., M.D./santiago:09/18/2017 13:27:29 Bottoming Machine Operator: Tracy MCCLELLAN (R)(Brigida), [facility] letter sent: Normal over 40 Mammogram BI-RADS: 1 Negative Stone Cutter: Santiago Transcribe Date/Time: Sep 18 2017 12:40P Dictated by: ROYAL COATES MD This examination was interpreted and the report reviewed and electronically signed by: YAMILE KANG MD on Sep 18 2017 1:27PM EST [id number] ALLERGIES ALLERGIES DATE TYPE / CODE NAME / CODE REACTION SEVERITY SOURCE 11/07/2013 DRUG ASPIRIN [facility] INGRED/[facility] [place] [address](SNOMED Repository CT) 10/25/2013 Drug No Known Unknown [facility] Allergy/4160 Allergies/F001 Hospital [address](SNOMED 144227(RXNORM) Repository CT) ENCOUNTERS ENCOUNTERS ADMIT/DISCHARGE ACCOUNT ADMITTING ENCOUNTER LOCATION SOURCE NUMBER CLASS 06/11/2018 [id number] Ambulatory Building:[facility] [place] Practices Repository 05/27/2018 [id number] [facility] ing:LABSPEC Repository 05/27/2018 [id number] [facility] ing:OLS.WCEH Repository 05/03/2018/05/03/[id number] ing:PT Repository 01/07/2018 [id number] [facility] ing:CVS Repository 01/03/2018 [id number] [facility] ing:LABSPEC Repository 11/05/2017/11/08/19 [id number] Ambulatory [address] Repository 09/18/2017/09/19/19 [id number] Ambulatory [address] Repository FUNCTIONAL STATUS FUNCTIONAL STATUS No Functional Status Records FoundEQUIPMENT EQUIPMENT No Equipment Records FoundPAYERS PAYERS ENCOUNTER GUARANTOR PAYER SUBSCRIBER SOURCE 06/11/2018 ROX L LIEWDOB: Primary Luzmaria K LiewDOB: [place]IP Practices [id number] Insurance:AETNAPolicy [id number] Repository [facility] Number: [address] [place] [address] [id number] [place], [place] [address]Uel: ([phone]) Date:3954-28-34Ngov 69690Qpm: () Name:[facility] [id number] [phone] () [place], [place] [phone]: 06/11/2018 Secondary Luzmaria K LiewDOB: [place] Practices Insurance:[place] [id number] [facility] Number: [place], [place] [id number] [address]Wqd: Date:2005-06-08 - ~([id number] 30 () Name:[facility] [address], [place] [address]AC: 05/27/2018 LUZMARIA K [id number] Primary LUZMARIA K LIEWDOB: [place] Insurance:AETNAPolicy [id number] [facility] Number: [address] [id number] Repository [address]Nzl: ([phone]) Date:7741-28-70ZK [phone] () [id number] [place] [address]DJ: 05/27/2018 Secondary NOT GIVENUNK [place] Insurance:SELF PAY [facility] Number: Effective Repository Date:2018-05-27 05/27/2018 LUZMARIA K [id number] Primary NOT GIVENUNK Beto ALL[place] Insurance:SELF PAY [address] Number: Effective Repository [phone]: ([phone]) Date:2018-05-27 [phone] () 05/03/2018 LUZMARIA K [id number] Primary LUZMARIA K LIEWDOB: Bet[place] CROSS TA[place] Insurance:AETNAPolicy [id number] [facility] [place] Number: Hospital [address]Mcu: ([id number] Repository [phone] (HP) Date:6434-30-87QX [id number] [place] [address]KN: 05/03/2018 Secondary NOT GIVENUNK Beto Insurance:SELF PAY [facility] Number: Effective Repository Date:2018-04-11 01/07/2018 LUZMARIA K [id number] Primary LUZMARIA K LIEWDOB: [place] Insurance:AETNAPolicy [id number] [facility] Number: Hospital [address]Apw: (330) [id number] Repository [phone] () Date:7667-46-55BA [id number] [place] [address]IO: 01/07/2018 Secondary NOT GIVENUNK Ebto Insurance:SELF PAY [facility] Number: Effective Repository Date:2017-12-28 01/03/2018 LUZMARIA K [id number] Primary LUZMARIA K LIEWDOB: [place] CROSS TA[place] Insurance:AETNAPolicy [id number] [facility] [place] Number: Hospital [id number]: ([id number] Repository [phone] (HP) Date:8805-44-30YA [address] [place] [address]NA: 01/03/2018 Secondary NOT GIVENUNK Beto Insurance:SELF PAY [facility] Number: Effective Repository Date:2018-01-03 SOCIAL HISTORY SOCIAL HISTORY No Social History Records FoundFAMILY HISTORY FAMILY HISTORY No Family History Records FoundADVANCE DIRECTIVES ADVANCE DIRECTIVES No Advanced Directives Records FoundINFORMATION SOURCE INFORMATION SOURCE DATE CREATED AUTHOR AUTHOR'S ORGANIZATION 06/12/2018 [place]
== END ==
PROVIDERS: Family Provider Internal Medicine; PCP Internal Medicine; Referring Provider Internal Medicine; Visit Provider Internal Medicine
DX: N18.3 Chronic kidney disease, stage 3 (moderate) (principal)
CPT/HCPCS: 83735

== ENCOUNTER → 2018-10-22 14:32 | Outpatient (CLI) | payer SELFPAY ==
--- NOTE | 2018-10-22 14:39 | CT_ITS ---
STUDY: CT CHEST WITHOUT CONTRAST REASON FOR EXAM: Female, 58 years old. Hyperlipidemia. Calcium scoring. Over read. RADIATION DOSAGE (If Supplied By Facility): CTDIvol = ( 12.19 ) mGy, DLP = ( 341.31 ) mGycm TECHNIQUE: Transaxial imaging was performed without the administration of intravenous contrast material. Individualized dose optimization techniques were used for this CT. COMPARISON: None. FINDINGS: Upper abdomen, body wall soft tissues, osseous structures, mediastinal contents exhibit no acute process. Evaluated portions of lungs and airways are unremarkable. Nondilated ascending and descending aorta. Arch is not observed with the [id number]. Nondilated central pulmonary arteries. Normal cardiac size, no pericardial effusion. The right and left coronary arteries each emerge from the appropriate coronary sinus with right coronary dominance to the PDA. There is a single focus of coronary calcium of the mid LAD adjacent to the takeoff of the 1st diagonal. There is a single focus of coronary calcium at the junction of the RCA and PDA. There is no observed coronary calcium of the left main or circumflex coronary artery. CT/Limited Chest CT w/CCTA IMPRESSION: The coronary calcium score is reported under separate cover with cardiology. Please see that report. No other acute thoracic process is evident. Electronically Signed: Reji Garber MD at 8:18 EDT Tel , Service support ,
[2018-10-22 14:46] VITALS: BP 140/82; PULSE 72; RESP 16; O2SAT 100; BMI 26.9
--- NOTE | 2018-10-23 15:44 | CA.SCORE ---
Calcium Scoring Date of Study:: 10/22/18 Coronary Calcium Scoring: High-resolution Computed Tomographic imaging of the chest was performed on [10/22/2018 ], with particular attention paid to the coronary arteries. Images from the examination were analyzed for the presence and extent of coronary artery calcification , using coronary calcium quantification software. The patient tolerated the procedure well and there were no complications. The results of the coronary calcification analysis are provided below. - Findings Left Main (LM): 0 Left Anterior Descending (LAD): 6.76 Left Circumflex (LCX): 0 Right Coronary Artery (RCA): 0 Total Agatston Score: 6.76 Percentile Rankin - Conclusion Calcium Scoring Interpretation: Calcium Score Interpretation 0 No identifiable atherosclerotic plaque. Very low cardiovascular disease risk. <5% chance of presence coronary artery disease A Negative Examination 1-10 Minimal Plaque burden. Significant coronary artery disease very unlikely. 11-100 Mild plaque burden. Likely mild or minimal coronary atherosclerosis. 101-400 Moderate plaque burden Moderate non-obstructive coronary artery disease highly likely. Over 400 Extensive plaque burden. High likelihood of at least one significant coronary stenosis (>50% diameter) The total calcium score (6.76) is between the 50th and 75th percentile for women between the ages of 55 and 59. (Exact percentile calculated to be 56%; this means 55% of the population has a lower calcium score and 44% of the population has a higher calcium score than this patient.) A full evaluation of cardiac issues including assessment of all conventional risk factors, and the scores and percentile rankings reported herein should be evaluated in this context.
== END ==
PROVIDERS: Family Provider Internal Medicine; PCP Internal Medicine; Referring Provider Internal Medicine; Visit Provider Internal Medicine
DX: E78.5 Hyperlipidemia, unspecified (principal); E11.9 Type 2 diabetes mellitus without complications; R79.89 Other specified abnormal findings of blood chemistry
CPT/HCPCS: 75571; 76380

== ENCOUNTER → 2018-12-17 11:04 | Outpatient (CLI) | payer OTHER, SELFPAY ==
[2018-10-22 14:46] VITALS: BMI 26.9
[2018-12-17 11:51] LABS: Protein, Urine (Random) 28.6 mg/dL (<11.9); Protein:Creat Ratio 173 mg/g CRE (0-200)
== END ==
PROVIDERS: Family Provider Internal Medicine; PCP Internal Medicine
DX: R69 Illness, unspecified (principal)
CPT/HCPCS: 82570; 84156

== ENCOUNTER → 2019-03-26 10:00 | Outpatient (CLI) | payer OTHER, SELFPAY ==
[2018-10-22 14:46] VITALS: BMI 26.9
--- NOTE | 2019-03-26 10:02 | RAD_ITS ---
STUDY: X-RAY - LEFT ANKLE REASON FOR EXAM: Female, 58 years old. Pain TECHNIQUE: 3 view(s) of the ankle. COMPARISON: None. FINDINGS: Normal visualized distal tibia and fibula. Normal medial and lateral malleoli. Normal tibiotalar articulation and ankle mortise. Small plantar calcaneus spur. The visualized subtalar, talonavicular, calcaneocuboid and tarsal articulations are normal. Arterial calcifications. Achilles tendon calcifications. RAD/Ankle 2 Views IMPRESSION: Plantar calcaneus spur. Calcific tendinitis of the Achilles is not excluded. Electronically Signed: Anthony Miles MD at 18:05 EDT Tel , Service support ,
--- NOTE | 2019-03-26 10:09 | RAD_ITS ---
STUDY: X-RAY - RIGHT ANKLE REASON FOR EXAM: Female, 58 years old. Pain TECHNIQUE: 3 view(s) of the ankle. COMPARISON: None. FINDINGS: Normal visualized distal tibia and fibula. Normal medial and lateral malleoli. Normal tibiotalar articulation and ankle mortise. Plantar calcaneus spur. The visualized subtalar, talonavicular, calcaneocuboid and tarsal articulations are normal. Vascular calcifications. RAD/Ankle 2 Views IMPRESSION: Plantar calcaneus spur. No other osseous abnormality is evident. Electronically Signed: Anthony Miles MD at 18:03 EDT Tel , Service support ,
== END ==
PROVIDERS: Family Provider Internal Medicine; PCP Internal Medicine; Referring Provider Internal Medicine; Visit Provider Internal Medicine
DX: M77.32 Calcaneal spur, left foot (principal); M77.31 Calcaneal spur, right foot; M76.62 Achilles tendinitis, left leg
CPT/HCPCS: 73600

== ENCOUNTER → 2019-04-08 10:06 | Outpatient (REF) | payer OTHER, SELFPAY ==
[2018-10-22 14:46] VITALS: BMI 26.9
[2019-04-08 11:21] LABS: Microalbumin,Random Urine 39.3 mg/L (NO RANGE EST.); Microalbumin:Creatinine Ratio 35.7 mg/g CRE (<30 mg/g CRE); Protein, Urine (Random) 20.4 mg/dL (<11.9); Protein:Creat Ratio 185 mg/g CRE (0-200)
[2019-04-08 11:37] LABS: PTHIN 66.4 pg/mL (18.4-80.1)
== END ==
LOC: OLS.WCEH 10:06
DX: R69 Illness, unspecified (principal)
CPT/HCPCS: 82043; 82570; 83970; 84156

== ENCOUNTER → 2019-04-21 10:26 | Outpatient (CLI) | payer OTHER, SELFPAY ==
[2018-10-22 14:46] VITALS: BMI 26.9
--- NOTE | 2019-04-21 10:28 | US_ITS ---
STUDY: RENAL ULTRASOUND - COMPLETE REASON FOR EXAM: Female, 59 years old. Chronic renal disease, stage III. TECHNIQUE: Ultrasound evaluation of the kidneys was performed with real-time and static edwards-scale imaging. COMPARISON: None. FINDINGS: RIGHT KIDNEY: Normal location of the right kidney, which is normal in size. The right kidney measures 9.0 x 4.2 x 4.8 cm. There is a normal cortex of the right kidney. The renal cortex measures 1.2 cm. There is no right renal mass or cyst. There are no right renal calculi. There is no right hydronephrosis. DISTAL RIGHT URETER: There is non-visualization of the distal right ureter. There is no demonstrated right ureterovesical junction calculus. There is a visualized right ureteral jet. LEFT KIDNEY: Normal location of the left kidney, which is normal in size. The left kidney measures 9.3 x 4.1 x 4.6 cm. There is a normal cortex of the left kidney. The renal cortex measures 1.4 cm. There is no left renal mass or cyst. There are no left renal calculi. There is no left hydronephrosis. DISTAL LEFT URETER: There is non-visualization of the distal left ureter. There is no demonstrated left ureterovesical junction calculus. There is a visualized left ureteral jet. I.V.C.: The IVC is patent. BLADDER: The urinary bladder has a volume of 82.4 ml. There is a normal wall thickness of the distended urinary bladder. There is no demonstrated mass within the urinary bladder. There are no demonstrated bladder calculi. US/Kidney and Bladder IMPRESSION: Unremarkable ultrasound of the kidneys and visualized urinary bladder. Electronically Signed: Joanie West MD at 1:00 EDT , Service support ,
== END ==
PROVIDERS: Family Provider Internal Medicine; PCP Internal Medicine; Referring Provider Internal Medicine Nephrology; Visit Provider Internal Medicine Nephrology
DX: N18.3 Chronic kidney disease, stage 3 (moderate) (principal)
CPT/HCPCS: 76770

== ENCOUNTER → 2019-08-01 13:28 | Outpatient (CLI) | payer OTHER, SELFPAY ==
[2018-10-22 14:46] VITALS: BMI 26.9
[2019-08-01 14:41] LABS: PTHIN 58.9 pg/mL (18.4-80.1)
== END ==
PROVIDERS: PCP Internal Medicine; Referring Provider Internal Medicine; Visit Provider Internal Medicine
DX: N18.3 Chronic kidney disease, stage 3 (moderate) (principal)
CPT/HCPCS: 83970

== ENCOUNTER → 2019-10-29 10:36 | Outpatient (CLI) | payer OTHER, SELFPAY ==
[2018-10-22 14:46] VITALS: BMI 26.9
[2019-10-29 11:08] LABS: PTHIN 77.6 pg/mL (18.4-80.1)
== END ==
PROVIDERS: Visit Provider Internal Medicine
DX: N18.3 Chronic kidney disease, stage 3 (moderate) (principal)
CPT/HCPCS: 83970

== ENCOUNTER → 2019-11-18 08:19 | Outpatient (CLI) | payer OTHER, SELFPAY ==
[2018-10-22 14:46] VITALS: BMI 26.9
[2019-11-18 09:41] LABS: Ferritin 95 ng/mL (8-252)
[2019-11-19 16:50] LABS: Lipoprotein A 31.8 nmol/L (<75.0)
== END ==
PROVIDERS: PCP Internal Medicine; Referring Provider Internal Medicine; Visit Provider Internal Medicine
DX: E78.5 Hyperlipidemia, unspecified (principal)
CPT/HCPCS: 36415; 82533; 82728; 83695

== ENCOUNTER → 2019-11-26 10:30 | Outpatient (CLI) | payer OTHER, SELFPAY ==
[2018-10-22 14:46] VITALS: BMI 26.9
[2019-11-30 21:12] LABS: Cortisol, Free 24Ur 3 ug/24 hr (6-42); Cortisol, Urinary Free 4 ug/L (Undefined)
== END ==
PROVIDERS: PCP Internal Medicine; Referring Provider Internal Medicine; Visit Provider Internal Medicine
DX: E27.0 Other adrenocortical overactivity (principal)
CPT/HCPCS: 81050; 82530

== ENCOUNTER → 2020-01-20 08:38 | Outpatient (CLI) | payer OTHER, SELFPAY ==
[2018-10-22 14:46] VITALS: BMI 26.9
[2020-01-20 09:47] LABS: Cholesterol 111 mg/dL (200); High Density Lipoprotein 53 mg/dL; Triglycerides 167 mg/dL; Very Low Density Lipoprotein 33 mg/dL (5-40); Vitamin D,25 Hydroxy 45.4 ng/mL
== END ==
PROVIDERS: PCP Internal Medicine; Referring Provider Internal Medicine; Visit Provider Internal Medicine
DX: E78.5 Hyperlipidemia, unspecified (principal)
CPT/HCPCS: 36415; 80061; 82306

== ENCOUNTER → 2020-07-27 10:24 | Outpatient (CLI) | payer OTHER, SELFPAY ==
[2018-10-22 14:46] VITALS: BMI 26.9
[2020-07-27 11:25] LABS: Absolute Lymphocyte Count 1.83 X10^3/uL (0.83-4.51); Absolute Neutrophil Count 2.7 X10^3/uL (2.0-7.7); Basophil# 0.03 X10^3/uL; Basophil% 0.6 % (0-1); Eosinophil# 0.16 X10^3/uL; Eosinophils% 3.1 % (0-5); Hematocrit 39.6 % (37-47); Hemoglobin 12.6 g/dL (12.0-15.0); Lymphocyte # 1.83 X10^3/ul (4.0); Lymphocyte % 35.8 % (19-41); Mean Corp Hgb Conc 31.8 g/dL (32-36); Mean Corpuscular Hgb 29.6 pg (27.0-32.0); Mean Corpuscular Volume 93.2 fL (81-99); Mean Platelet Vol. 12.4 fl (6.2-12.0); Monocyte# 0.39 X10^3/uL; Monocyte% 7.6 % (0-10); NRBC Flagged by Analyzer 0 % (0-5); Neutrophil # 2.68 X10^3/uL (2.7-7.7); Neutrophil % 52.5 % (47-70); POSITIVE COUNT YES; RBC Distribution Width CV 14.3 % (11.6-14.6); RBC Distribution Width SD 48.7 fl (35.1-43.9); Red Blood Count 4.25 M/mm3 (4.2-5.4); White Blood Count 5.1 K/mm3 (4.4-11.0)
[2020-07-27 11:28] LABS: Differential Indicated SCAN CRITERIA MET
[2020-07-27 11:42] LABS: Microalbumin:Creatinine Ratio 197.6 mg/g CRE (<30 mg/g CRE)
[2020-07-27 11:54] LABS: Platelet Estimate SLT DEC (ADEQ); Platelet Morphology CLUMPED
[2020-07-27 12:07] LABS: ALB/GLOB Ratio 0.9 RATIO (0.9-2.4); AST(SGOT) 26 U/L (15-37); Alanine Aminotransfer ALT/SGPT 33 U/L (13-56); Albumin, Serum 3.9 g/dL (3.2-5.0); Alkaline Phosphatase 85 U/L (45-117); Anion Gap 9 (5-15); BUN 31 mg/dL (7-18); BUN/Creat Ratio 15.7 RATIO (10-20); Calcium,Total 9.4 mg/dL (8.5-10.1); Chloride 110 mmol/L (98-107); Creatinine, Serum 1.97 mg/dL (0.55-1.02); EST Glomerular Filtration Rate 28 mL/min (>60); Est Glom Filt Rate - Afr Amer 34 mL/min (>60); Globulin 4.3 g/dL (2.2-4.2); Glucose 93 mg/dL (74-106); Protein, Total 8.2 g/dL (6.4-8.2); Sodium Level 141 mmol/L (136-145)
== END ==
PROVIDERS: PCP Internal Medicine; Referring Provider Internal Medicine; Visit Provider Internal Medicine
DX: R80.9 Proteinuria, unspecified (principal)
CPT/HCPCS: 36415; 80053; 82043; 82570; 85025

== ENCOUNTER → 2020-09-20 09:17 | Outpatient (CLI) | payer OTHER, SELFPAY ==
[2018-10-22 14:46] VITALS: BMI 26.9
[2020-09-20 09:48] LABS: Mucous, Urine 0 SEEN /hpf (<or=2+)
[2020-09-20 10:36] LABS: Color, Urine Yellow (Yellow); Glucose, Dipstick 50 mg/dl (Normal); Ketone-Dipstick Negative (Negative); Leukocyte Esterase-Dipstick 100 /ul (Negative); Nitrite-Dipstick Negative (Negative); Occult Blood-Urine 25 /ul (Negative); Protein-Dipstick 30 mg/dl (Negative); Urine Bilirubin Dipstick Negative (Negative); Urine Clarity Sl. Cloudy (Clear); Urine Urobilinogen Normal (Normal)
[2020-09-20 10:41] LABS: Bacteria 1+ /hpf (None Seen); Red Blood Cells-Urine 0-5 SEEN /hpf (0-5); Squamous Epithelial Cells - UA 0-5 SEEN /hpf (5-10); White Blood Cells 10-25 SEEN /hpf (0-5)
[2020-09-20 10:47] LABS: Protein, Urine (Random) 60.5 mg/dL (<11.9); Protein:Creat Ratio 742 mg/g CRE (0-200)
[2020-09-20 10:52] LABS: Anion Gap 5 (5-15); BUN 33 mg/dL (7-18); BUN/Creat Ratio 15.4 RATIO (10-20); Chloride 109 mmol/L (98-107); Creatinine, Serum 2.14 mg/dL (0.55-1.02); EST Glomerular Filtration Rate 25 mL/min (>60); Est Glom Filt Rate - Afr Amer 30 mL/min (>60); Glucose 147 mg/dL (74-106); Phosphorus 2.6 mg/dL (2.5-4.9); Potassium 4.1 mmol/L (3.5-5.1); Sodium Level 140 mmol/L (136-145)
[2020-09-20 10:54] LABS: PTHIN 92.6 pg/mL (18.4-80.1)
[2020-09-20 10:58] LABS: Vitamin D,25 Hydroxy 31.9 ng/mL
== END ==
PROVIDERS: PCP Internal Medicine; Referring Provider Internal Medicine; Visit Provider Internal Medicine
DX: R80.9 Proteinuria, unspecified (principal); N18.32 Chronic kidney disease, stage 3b; E55.9 Vitamin D deficiency, unspecified
CPT/HCPCS: 36415; 80048; 81001; 82306; 82570; 83970; 84100; 84156

== ENCOUNTER → 2021-01-03 08:31 | Outpatient (CLI) | payer OTHER, SELFPAY ==
[2018-10-22 14:46] VITALS: BMI 26.9
[2021-01-03 08:39] LABS: Mucous, Urine 0 SEEN /hpf (<or=2+)
[2021-01-03 09:46] LABS: Color, Urine Yellow (Yellow); Glucose, Dipstick Normal (Normal); Ketone-Dipstick Negative (Negative); Leukocyte Esterase-Dipstick 25 /ul (Negative); Nitrite-Dipstick Negative (Negative); Occult Blood-Urine 25 /ul (Negative); Protein-Dipstick 30 mg/dl (Negative); Specific Gravity, Urine 1.015 (1.002-1.030); Urine Bilirubin Dipstick Negative (Negative); Urine Clarity Sl. Cloudy (Clear); Urine Urobilinogen Normal (Normal)
[2021-01-03 09:48] LABS: Hematocrit 37.1 % (37-47); Hemoglobin 11.8 g/dL (12.0-15.0); Mean Corp Hgb Conc 31.8 g/dL (32-36); Mean Corpuscular Volume 94.4 fL (81-99); Mean Platelet Vol. 12.5 fl (6.2-12.0); POSITIVE COUNT YES; RBC Distribution Width CV 13.6 % (11.6-14.6); RBC Distribution Width SD 46.3 fl (35.1-43.9); Red Blood Count 3.93 M/mm3 (4.2-5.4); White Blood Count 4.9 K/mm3 (4.4-11.0)
[2021-01-03 09:52] LABS: Bacteria 1+ /hpf (None Seen); Red Blood Cells-Urine 0-5 SEEN /hpf (0-5); Squamous Epithelial Cells - UA 0-5 SEEN /hpf (5-10); White Blood Cells 0-5 SEEN /hpf (0-5)
[2021-01-03 09:57] LABS: 24 Hour Urine Protein 466.1 mg/24HR (<150 MG/24HR); 24HR. UA Prot. Total Volume 1375 mL; Urine Protein (24 Hour) 33.9 mg/dL (<11.9)
[2021-01-03 09:58] LABS: Protein, Urine (Random) 72.7 mg/dL (<11.9); Protein:Creat Ratio 692 mg/g CRE (0-200)
[2021-01-03 10:09] LABS: Scan Indicated on CBC? Y/N YES- FLAGS NOTED
[2021-01-03 10:11] LABS: Anion Gap 8 (5-15); BUN 33 mg/dL (7-18); BUN/Creat Ratio 16.7 RATIO (10-20); Calcium,Total 8.8 mg/dL (8.5-10.1); Chloride 112 mmol/L (98-107); Creatinine, Serum 1.98 mg/dL (0.55-1.02); EST Glomerular Filtration Rate 27 mL/min (>60); Est Glom Filt Rate - Afr Amer 33 mL/min (>60); Glucose 177 mg/dL (74-106); Phosphorus 3.3 mg/dL (2.5-4.9); Potassium 4.4 mmol/L (3.5-5.1); Sodium Level 141 mmol/L (136-145)
[2021-01-03 10:45] LABS: Creat.Clear Total Volume 1375 mL; Creatinine Clearance 35 ml/min (100-200); Creatinine Urine 73.3 mg/dL (NO RANGE EST.); EST Glomerular Filtration Rate 27 mL/min (>60); Est Glom Filt Rate - Afr Amer 33 mL/min (>60)
[2021-01-03 15:40] LABS: Vitamin D,25 Hydroxy 33.2 ng/mL
[2021-01-05 16:09] LABS: PROEL- Albumin 3.5 g/dL (2.9-4.4); PROEL- Alpha-1 Globulin 0.2 g/dL (0.0-0.4); PROEL- Alpha-2 Globulin 0.9 g/dL (0.4-1.0); PROEL- Beta Globulin 1.2 g/dL (0.7-1.3); PROEL- Gamma Globulin 1.2 g/dL (0.4-1.8); PROEL- Globulin, Total 3.6 g/dL (2.2-3.9); PROEL- TOTAL PROTEIN 7.1 g/dL (6.0-8.5); PROELU- Albumin, Urine 21.2 % (.); PROELU- Alpha-1-Globulin,Ur 8.7 % (.); PROELU- Alpha-2-Globulin,Ur 24.7 % (.); PROELU- Beta Globulin, Ur 30.5 % (.); PROELU- Gamma Globulin, Ur 14.9 % (.); Total Protein, Ur 49.9 mg/dL (Not Estab.)
== END ==
PROVIDERS: PCP Internal Medicine; Referring Provider Internal Medicine; Visit Provider Internal Medicine
DX: N18.32 Chronic kidney disease, stage 3b (principal); R80.9 Proteinuria, unspecified; E55.9 Vitamin D deficiency, unspecified
CPT/HCPCS: 36415; 80048; 81001; 81002; 81050; 82306; 82570; 82575; 83970; 84100; 84156; 84165; 84166; 85027

== ENCOUNTER → 2021-02-01 11:11 | Outpatient (CLI) | payer OTHER, SELFPAY ==
[2018-10-22 14:46] VITALS: BMI 26.9
--- NOTE | 2021-02-01 11:19 | US_ITS ---
INDICATION: CKD EXAMINATION: US Kidney(s) complete (eg, kidneys and bladder) TECHNIQUE: Boggs scale and color doppler images were obtained of the kidneys. COMPARISON: None. FINDINGS: RIGHT KIDNEY: Mildly atrophic measuring 8.7 cm in length. There is mild increase in echogenicity. There is no hydronephrosis. No shadowing calculus, focal lesion or perinephric collection is demonstrated. LEFT KIDNEY: Mild atrophic measuring 8.9 cm in length. There is mild increase in echogenicity. There is no hydronephrosis. No shadowing calculus, focal lesion or perinephric collection is demonstrated. URINARY BLADDER: No acute abnormality. US/Kidney and Bladder IMPRESSION: Increased echogenicity of mildly atrophic kidneys compatible with medical renal disease. No hydronephrosis. Electronically Signed: Giovanni Garcia MD at 23:25 EDT Tel , Service support ,
== END ==
PROVIDERS: PCP Internal Medicine; Referring Provider Internal Medicine Nephrology; Visit Provider Internal Medicine Nephrology
DX: N18.32 Chronic kidney disease, stage 3b (principal)
CPT/HCPCS: 76770

== ENCOUNTER → 2021-02-07 09:17 | Outpatient (CLI) | payer OTHER, SELFPAY ==
[2018-10-22 14:46] VITALS: BMI 26.9
[2021-02-07 10:31] LABS: Absolute Lymphocyte Count 1.33 X10^3/uL (0.83-4.51); Absolute Neutrophil Count 2.8 X10^3/uL (2.0-7.7); Basophil# 0.03 X10^3/uL; Basophil% 0.6 % (0-1); Eosinophil# 0.18 X10^3/uL; Eosinophils% 3.9 % (0-5); Hematocrit 39.5 % (37-47); Hemoglobin 12.6 g/dL (12.0-15.0); Lymphocyte # 1.33 X10^3/ul (0.83-4.51); Lymphocyte % 28.7 % (19-41); Mean Corp Hgb Conc 31.9 g/dL (32-36); Mean Corpuscular Hgb 30.1 pg (27.0-32.0); Mean Corpuscular Volume 94.5 fL (81-99); Mean Platelet Vol. 11.6 fl (6.2-12.0); Monocyte# 0.25 X10^3/uL; Monocyte% 5.4 % (0-10); NRBC Flagged by Analyzer 0 % (0-5); Neutrophil # 2.83 X10^3/uL (2.7-7.7); Neutrophil % 61.2 % (47-70); POSITIVE COUNT YES; RBC Distribution Width CV 13.7 % (11.6-14.6); RBC Distribution Width SD 47.8 fl (35.1-43.9); Red Blood Count 4.18 M/mm3 (4.2-5.4); White Blood Count 4.6 K/mm3 (4.4-11.0)
[2021-02-07 10:46] LABS: Hemoglobin A1c 6.3 % (3.8-5.6)
[2021-02-07 10:52] LABS: Platelet Estimate ADEQUATE (ADEQ)
[2021-02-07 11:06] LABS: Homocysteine 11.6 umol/L (3.2-10.7)
== END ==
PROVIDERS: PCP Internal Medicine; Referring Provider Internal Medicine; Visit Provider Internal Medicine
DX: R79.89 Other specified abnormal findings of blood chemistry (principal); E11.9 Type 2 diabetes mellitus without complications; I10 Essential (primary) hypertension
CPT/HCPCS: 36415; 83036; 83090; 85025

== ENCOUNTER → 2021-03-07 15:02 | Outpatient (CLI) | payer OTHER, SELFPAY ==
[2021-03-07 15:27] LABS: Platelet Count 171 K/mm3 (150-450)
== END ==
PROVIDERS: PCP Internal Medicine; Visit Provider Internal Medicine
DX: D69.6 Thrombocytopenia, unspecified (principal)
CPT/HCPCS: 85049

== ENCOUNTER → 2021-05-25 08:02 | Outpatient (CLI) | payer OTHER, SELFPAY ==
[2021-05-25 09:44] LABS: ALB/GLOB Ratio 0.9 RATIO (0.9-2.4); AST(SGOT) 22 U/L (15-37); Alanine Aminotransfer ALT/SGPT 39 U/L (13-56); Albumin, Serum 3.9 g/dL (3.2-5.0); Alkaline Phosphatase 67 U/L (45-117); Anion Gap 10 (5-15); BUN 37 mg/dL (7-18); BUN/Creat Ratio 20.8 RATIO (10-20); Calcium,Total 9.2 mg/dL (8.5-10.1); Chloride 107 mmol/L (98-107); Cholesterol 125 mg/dL (200); Creatinine, Serum 1.78 mg/dL (0.55-1.02); EST Glomerular Filtration Rate 31 mL/min (>60); Est Glom Filt Rate - Afr Amer 38 mL/min (>60); Globulin 4.3 g/dL (2.2-4.2); Glucose 110 mg/dL (74-106); High Density Lipoprotein 69 mg/dL; Potassium 4.3 mmol/L (3.5-5.1); Protein, Total 8.2 g/dL (6.4-8.2); Sodium Level 141 mmol/L (136-145); Triglycerides 139 mg/dL; Very Low Density Lipoprotein 28 mg/dL (5-40)
== END ==
PROVIDERS: PCP Internal Medicine; Referring Provider Internal Medicine; Visit Provider Internal Medicine
DX: E11.9 Type 2 diabetes mellitus without complications (principal)
CPT/HCPCS: 36415; 80053; 80061; 83036

== ENCOUNTER 2021-07-22 09:52 | Outpatient (CLI) | payer OTHER, SELFPAY ==
[2021-07-22 10:19] LABS: Protein, Urine (Random) 16.3 mg/dL (<11.9); Protein:Creat Ratio 443 mg/g CRE (0-200)
[2021-07-22 10:38] LABS: Anion Gap 6 (5-15); BUN 34 mg/dL (7-18); BUN/Creat Ratio 16.3 RATIO (10-20); Calcium,Total 9.5 mg/dL (8.5-10.1); Chloride 110 mmol/L (98-107); Creatinine, Serum 2.09 mg/dL (0.55-1.02); EST Glomerular Filtration Rate 26 mL/min (>60); Est Glom Filt Rate - Afr Amer 31 mL/min (>60); Glucose 94 mg/dL (74-106); Potassium 3.9 mmol/L (3.5-5.1); Sodium Level 141 mmol/L (136-145)
== END 2021-07-22 23:59 | disposition short-term general hospital (02) ==
LOC: LAB 09:53
PROVIDERS: PCP Internal Medicine; Visit Provider Nurse Practitioner Adult Health
DX: N18.32 Chronic kidney disease, stage 3b (principal)
CPT/HCPCS: 36415; 80048; 82570; 84156

== ENCOUNTER → 2021-10-21 | Outpatient (CLI) | payer OTHER, SELFPAY ==
--- NOTE | 2021-10-21 08:29 | RAD_ITS ---
STUDY: X-RAY - RIGHT FOOT CLINICAL: Female, 61 years old. FOOT PAIN TECHNIQUE: 3 view(s) of the foot. COMPARISON: None. FINDINGS: There is a plantar calcaneal spur. Normal visualized subtalar, talonavicular, calcaneocuboid, tarsal and tarsometatarsal articulations. Normal metatarsi. Normal metatarsophalangeal joint of the great toe. Normal tibial and fibular sesamoid bones. Normal interphalangeal joint of the great toe. Normal phalanges of the great toe. Normal second through fifth metatarsophalangeal joints. Normal interphalangeal joints and phalanges of the lesser toes. The soft tissue structures are unremarkable. RAD/Foot min 3 Views IMPRESSION: Plantar spur. Electronically Signed: Griffin Singh MD at 9:15 EDT ,
== END | disposition home or self-care (01) ==
PROVIDERS: PCP Internal Medicine; Referring Provider Internal Medicine; Visit Provider Internal Medicine
DX: M79.671 Pain in right foot (principal)
CPT/HCPCS: 73630

== ENCOUNTER → 2021-11-30 | Outpatient (CLI) | payer OTHER, SELFPAY ==
--- NOTE | 2021-11-30 10:20 | BD_ITS ---
STUDY: DUAL ENERGY X-RAY ABSORPTIOMETRY / DXA REASON FOR EXAM: Female, 61 years old. M84.374P. Screening examination. TECHNIQUE: Bone Mineral Density (BMD) measurements of lumbar spine and bilateral hips were obtained. COMPARISON: None. FINDINGS: Lumbar Spine (L1-L4): g/cm2 (1.011) / T-score (-0.3) / Z-score (1.1) Findings are suggestive of normal bone density with a low fracture risk. Left Femur Total: g/cm2 (0.891) / T-score (-0.4) / Z-score (0.5) Left Femoral Neck: g/cm2 (0.605) / T-score (-2.2) / Z-score (-0.9) Right Femur Total: g/cm2 (0.859) / T-score (-0.7) / Z-score (0.2) Right Femoral Neck: g/cm2 (0.609) / T-score (-2.2) / Z-score (-0.9) BD/Dexa Bone Density Study IMPRESSION: The patient is considered osteopenic as outlined below according to World Francesco Organization (WHO) criteria with a high fracture risk. Reference Information: The T-score is the number of standard deviations above or below the standard which is normal for young adults at their peak bone mineral density. The World Health Organization (WHO) interprets the T-scores as follows: Above -1 Normal bone density Between -1 and -2.5 Osteopenia Equal to / or below -2.5 Osteoporosis As a practical clinical guideline, osteopenia may be graded as follows: Mild -1 through -1.5 Moderate -1.6 through -2.0 Severe -2.1 through -2.4 The Z-score is the number of standard deviations above or below age-matched controls. A Z-score of less than -1.5 would be considered abnormal. References: 1. NIH Osteoporosis and Related Bone Diseases www osteo.org 2. International Society for Clinical Densitometry www iscd.org 3. National Osteoporosis Foundation www nof.org Electronically Signed: Griffin Singh MD at 8:11 EDT ,
== END | disposition home or self-care (01) ==
PROVIDERS: PCP Internal Medicine; Referring Provider Internal Medicine; Visit Provider Internal Medicine
DX: M84.37 Stress fracture, ankle, foot and toes (principal)
CPT/HCPCS: 77080

== ENCOUNTER → 2022-01-09 | Outpatient (CLI) | payer OTHER, SELFPAY ==
[2022-01-09 10:50] LABS: Hematocrit 38.7 % (37-47); Hemoglobin 12.4 g/dL (12.0-15.0); Mean Corpuscular Hgb 30.5 pg (27.0-32.0); Mean Corpuscular Volume 95.3 fL (81-99); Mean Platelet Vol. 11.9 fl (6.2-12.0); POSITIVE COUNT YES; RBC Distribution Width CV 13.8 % (11.6-14.6); Red Blood Count 4.06 M/mm3 (4.2-5.4); White Blood Count 5.3 K/mm3 (4.4-11.0)
[2022-01-09 11:00] LABS: Protein, Urine (Random) 89.7 mg/dL (<11.9); Protein:Creat Ratio 475 mg/g CRE (0-200)
[2022-01-09 11:11] LABS: Vitamin D,25 Hydroxy 32.7 ng/mL
[2022-01-09 11:13] LABS: Albumin, Serum 3.9 g/dL (3.2-5.0); BUN 44 mg/dL (7-18); BUN/Creat Ratio 22.6 RATIO (10-20); Calcium,Total 9.6 mg/dL (8.5-10.1); Chloride 107 mmol/L (98-107); Creatinine, Serum 1.95 mg/dL (0.55-1.02); EST Glomerular Filtration Rate 28 mL/min (>60); Est Glom Filt Rate - Afr Amer 34 mL/min (>60); Glucose 176 mg/dL (74-106); Phosphorus 3.3 mg/dL (2.5-4.9); Sodium Level 140 mmol/L (136-145)
[2022-01-09 11:58] LABS: PTHIN 80.7 pg/mL (18.4-80.1)
== END | disposition home or self-care (01) ==
LOC: LAB 08:47
PROVIDERS: PCP Internal Medicine; Visit Provider Internal Medicine Nephrology
DX: R80.9 Proteinuria, unspecified (principal); N25.81 Secondary hyperparathyroidism of renal origin; N18.32 Chronic kidney disease, stage 3b; E55.9 Vitamin D deficiency, unspecified; D64.9 Anemia, unspecified
CPT/HCPCS: 36415; 80069; 82306; 82570; 83970; 84156; 85027

== ENCOUNTER → 2022-03-06 | Outpatient (CLI) | payer OTHER, SELFPAY ==
[2022-03-06 09:57] LABS: Absolute Lymphocyte Count 2.25 X10^3/uL (0.83-4.51); Basophil# 0.04 X10^3/uL; Basophil% 0.7 % (0-1); Eosinophil# 0.19 X10^3/uL; Eosinophils% 3.2 % (0-5); Hematocrit 36.8 % (37-47); Hemoglobin 12.1 g/dL (12.0-15.0); Lymphocyte # 2.25 X10^3/ul (0.83-4.51); Lymphocyte % 38.1 % (19-41); Mean Corp Hgb Conc 32.9 g/dL (32-36); Mean Corpuscular Hgb 31.3 pg (27.0-32.0); Mean Corpuscular Volume 95.3 fL (81-99); Mean Platelet Vol. 12.9 fl (6.2-12.0); Monocyte# 0.38 X10^3/uL; Monocyte% 6.4 % (0-10); NRBC Flagged by Analyzer 0 % (0-5); Neutrophil # 3.02 X10^3/uL (2.7-7.7); Neutrophil % 51.3 % (47-70); POSITIVE COUNT YES; RBC Distribution Width SD 48.3 fl (35.1-43.9); Red Blood Count 3.86 M/mm3 (4.2-5.4); White Blood Count 5.9 K/mm3 (4.4-11.0)
[2022-03-06 10:15] LABS: Hemoglobin A1c 6.6 % (3.8-5.6); Microalbumin,Random Urine 99.6 mg/L (NO RANGE EST.); Microalbumin:Creatinine Ratio 53.5 mg/g CRE (<30 mg/g CRE)
[2022-03-06 10:43] LABS: Differential Indicated SCAN CRITERIA MET; Platelet Estimate ADEQUATE (ADEQ)
[2022-03-06 11:12] LABS: AST(SGOT) 19 U/L (15-37); Alanine Aminotransfer ALT/SGPT 35 U/L (13-56); Albumin, Serum 3.6 g/dL (3.2-5.0); Alkaline Phosphatase 71 U/L (45-117); Anion Gap 9 (5-15); BUN 38 mg/dL (7-18); BUN/Creat Ratio 19.2 RATIO (10-20); Calcium,Total 9.9 mg/dL (8.5-10.1); Chloride 112 mmol/L (98-107); Creatinine, Serum 1.98 mg/dL (0.55-1.02); EST Glomerular Filtration Rate 27 mL/min (>60); Est Glom Filt Rate - Afr Amer 33 mL/min (>60); Globulin 3.7 g/dL (2.2-4.2); Glucose 126 mg/dL (74-106); Potassium 4.1 mmol/L (3.5-5.1); Protein, Total 7.3 g/dL (6.4-8.2); Sodium Level 142 mmol/L (136-145)
== END | disposition home or self-care (01) ==
LOC: LAB 09:28
PROVIDERS: PCP Internal Medicine; Referring Provider Internal Medicine; Visit Provider Internal Medicine
DX: E11.9 Type 2 diabetes mellitus without complications (principal)
CPT/HCPCS: 36415; 80053; 82043; 82570; 83036; 85025

== ENCOUNTER → 2022-03-29 | Outpatient (CLI) | payer OTHER, SELFPAY ==
[2022-03-29 15:24] LABS: Albumin, Serum 3.8 g/dL (3.2-5.0); BUN 37 mg/dL (7-18); BUN/Creat Ratio 17.2 RATIO (10-20); Chloride 110 mmol/L (98-107); Creatinine, Serum 2.15 mg/dL (0.55-1.02); EST Glomerular Filtration Rate 25 mL/min (>60); Est Glom Filt Rate - Afr Amer 30 mL/min (>60); Glucose 107 mg/dL (74-106); Phosphorus 4.1 mg/dL (2.5-4.9); Potassium 4.3 mmol/L (3.5-5.1); Sodium Level 142 mmol/L (136-145)
[2022-03-29 15:40] LABS: Hemoglobin A1c 6.5 % (3.8-5.6)
== END | disposition home or self-care (01) ==
LOC: LAB 13:46
PROVIDERS: PCP Internal Medicine; Referring Provider Internal Medicine; Visit Provider Internal Medicine
DX: E11.9 Type 2 diabetes mellitus without complications (principal)
CPT/HCPCS: 36415; 80069; 83036

== ENCOUNTER → 2022-06-05 | Outpatient (CLI) | payer OTHER, SELFPAY ==
[2022-06-05 10:55] LABS: Albumin, Serum 3.8 g/dL (3.2-5.0); BUN 35 mg/dL (7-18); Calcium,Total 9.9 mg/dL (8.5-10.1); Chloride 111 mmol/L (98-107); Creatinine, Serum 2.19 mg/dL (0.55-1.02); EST Glomerular Filtration Rate 24 mL/min (>60); Est Glom Filt Rate - Afr Amer 29 mL/min (>60); Glucose 179 mg/dL (74-106); Phosphorus 3.3 mg/dL (2.5-4.9); Potassium 4.3 mmol/L (3.5-5.1); Sodium Level 140 mmol/L (136-145)
== END | disposition home or self-care (01) ==
LOC: LAB 08:50
PROVIDERS: PCP Internal Medicine; Visit Provider Internal Medicine
DX: E11.9 Type 2 diabetes mellitus without complications (principal)
CPT/HCPCS: 36415; 80069

== ENCOUNTER → 2022-07-18 | Outpatient (CLI) | payer OTHER, SELFPAY ==
[2022-07-18 10:51] LABS: Anion Gap 10 (5-15); BUN 50 mg/dL (7-18); BUN/Creat Ratio 19.9 RATIO (10-20); Calcium,Total 9.9 mg/dL (8.5-10.1); Chloride 107 mmol/L (98-107); Creatinine, Serum 2.51 mg/dL (0.55-1.02); EST Glomerular Filtration Rate 21 mL/min (>60); Est Glom Filt Rate - Afr Amer 25 mL/min (>60); Glucose 212 mg/dL (74-106); Potassium 4.5 mmol/L (3.5-5.1); Sodium Level 140 mmol/L (136-145)
[2022-07-18 11:16] LABS: Protein, Urine (Random) 55.2 mg/dL (<11.9); Protein:Creat Ratio 696 mg/g CRE (0-200)
== END | disposition home or self-care (01) ==
LOC: LAB 09:21
PROVIDERS: PCP Internal Medicine; Visit Provider Internal Medicine Nephrology
DX: R80.9 Proteinuria, unspecified (principal); I10 Essential (primary) hypertension
CPT/HCPCS: 36415; 80048; 82570; 84156

== ENCOUNTER → 2022-10-09 | Outpatient (CLI) | payer OTHER, SELFPAY ==
[2022-10-09 10:48] LABS: Anion Gap 4 (5-15); BUN 35 mg/dL (7-18); BUN/Creat Ratio 13.4 RATIO (10-20); Calcium,Total 10.3 mg/dL (8.5-10.1); Chloride 112 mmol/L (98-107); Creatinine, Serum 2.61 mg/dL (0.55-1.02); EST Glomerular Filtration Rate 20 mL/min (>60); Est Glom Filt Rate - Afr Amer 24 mL/min (>60); Glucose 189 mg/dL (74-106); Potassium 3.9 mmol/L (3.5-5.1); Sodium Level 141 mmol/L (136-145)
== END | disposition home or self-care (01) ==
LOC: LAB 10:05
PROVIDERS: PCP Internal Medicine; Referring Provider Internal Medicine; Visit Provider Internal Medicine
DX: E11.9 Type 2 diabetes mellitus without complications (principal)
CPT/HCPCS: 36415; 80048

== ENCOUNTER → 2022-11-06 | Outpatient (CLI) | payer OTHER, SELFPAY ==
[2022-11-06 09:51] LABS: Anion Gap 11 (5-15); BUN 56 mg/dL (7-18); BUN/Creat Ratio 20.8 RATIO (10-20); Calcium,Total 10.1 mg/dL (8.5-10.1); Chloride 105 mmol/L (98-107); Creatinine, Serum 2.69 mg/dL (0.55-1.02); EST Glomerular Filtration Rate 19 mL/min (>60); Est Glom Filt Rate - Afr Amer 23 mL/min (>60); Glucose 356 mg/dL (74-106); Potassium 4.8 mmol/L (3.5-5.1); Sodium Level 138 mmol/L (136-145)
== END | disposition home or self-care (01) ==
LOC: LAB 09:08
PROVIDERS: PCP Internal Medicine; Visit Provider Internal Medicine
DX: N18.30 Chronic kidney disease, stage 3 unspecified (principal)
CPT/HCPCS: 36415; 80048

== ENCOUNTER → 2022-12-05 | Outpatient (CLI) | payer OTHER, SELFPAY ==
--- NOTE | 2022-12-05 06:49 | EKG12_ITS ---
Test Reason : Blood Pressure : / mmHG Vent. Rate : 083 BPM Atrial Rate : 083 BPM P-R Int : 246 ms QRS Dur : 084 ms QT Int : 384 ms P-R-T Axes : 043 -26 046 degrees QTc Int : 451 ms Sinus rhythm with 1st degree A-V block Abnormal ECG Confirmed by OLIVIA OTT, GREG ([id number]), medical transcription editor LIANNA WALL ([id number]) on 12/06/2022 11:15:52 AM Referred By: Selina Menon Confirmed By:GREG BAKER MD
--- NOTE | 2022-12-10 14:55 | STRESSREP_ITS ---
Stress Test Report Date: 12/05/2022 Procedure: Pharmacologic stress nuclear imaging study Indications: Chest pain Consent: Per the patient Procedure: The patient underwent pharmacologic (Regadenoson) evaluation with a peak heart rate of 100 beats per minute (62%predicted maximal heart rate) and a peak blood pressure of 118/76 mmHg. The baseline ECG demonstrated [normal sinus rhythm, first-degree AV block, poor R wave progression in the anterior leads]. EKG during lexiscan infusion revealed no evidence of significant ischemia. EKG post infusion revealed no significant ischemic changes [There were no cardiac dysrhythmias pretest, during pharmacologic infusion, or recovery]. [There was no complaint of chest discomfort during pharmacologic infusion or recovery]. The examination was discontinued secondary to completion of protocol. Impression: 1. Lexiscan stress test test is negative for Lexiscan infusion induced EKG changes of ischemia. 2. Lexiscan stress test test is negative for Lexiscan infusion induced chest pain. 3. Results of the nuclear portion of the test is as below Myocardial perfusion imaging study: Technique: The patient was injected with 11.8 millicuries of technetium 99m Cardiolite and subsequently rest SPECT Cardiolite nuclear imaging was obtained in the horizontal long, vertical long, and short axis views. The patient underwent pharmacologic [Regadenoson 0.4mg] evaluation. Please see above for details. The patient was injected with 34.3 millicuries of technetium 99m Cardiolite and subsequently stress SPECT Cardiolite nuclear imaging was obtained in the horizontal long, vertical long, and short axis views. A gated Cardiolite study at peak stress was obtained. Interpretation: Rest and stress SPECT Cardiolite nuclear imaging status post realignment, normalization, and attenuation correction demonstrate no evidence of significant ischemia or infarction. Gated images reveal no significant regional wall motion abnormalities. The reported LVEF is greater than 70%. Impression: 1. There is no evidence of significant ischemia or infarction. 2. Estimated ejection fraction is greater than 70%. This note was generated with Bioxodesation software. It may contain incorrect words, spelling, and punctuation that were not noted in checking the note before signing.
== END | disposition home or self-care (01) ==
LOC: CVS 06:47
PROVIDERS: PCP Internal Medicine; Referring Provider Internal Medicine; Visit Provider Internal Medicine
DX: R07.89 Other chest pain (principal)
CPT/HCPCS: 78452; 93005; 93017; A9500; A4216; J2785

== ENCOUNTER → 2023-01-17 | Outpatient (CLI) | payer OTHER, SELFPAY ==
[2023-01-17 11:24] LABS: Hemoglobin 15.1 g/dL (12.0-15.0); Mean Corp Hgb Conc 32.8 g/dL (32-36); Mean Corpuscular Volume 94.5 fL (81-99); Mean Platelet Vol. 11.6 fl (6.2-12.0); POSITIVE COUNT YES; RBC Distribution Width CV 13.2 % (11.6-14.6); RBC Distribution Width SD 45.2 fl (35.1-43.9); Red Blood Count 4.87 M/mm3 (4.2-5.4); White Blood Count 6.6 K/mm3 (4.4-11.0)
[2023-01-17 12:08] LABS: Scan Indicated on CBC? Y/N YES- FLAGS NOTED
[2023-01-17 12:10] LABS: PTHIN 65.4 pg/mL (18.4-80.1)
[2023-01-17 12:16] LABS: Vitamin D,25 Hydroxy 35.4 ng/mL
[2023-01-17 12:18] LABS: BUN 27 mg/dL (7-18); BUN/Creat Ratio 10.2 RATIO (10-20); Calcium,Total 10.4 mg/dL (8.5-10.1); Chloride 106 mmol/L (98-107); Creatinine, Serum 2.66 mg/dL (0.55-1.02); EST Glomerular Filtration Rate 19 mL/min (>60); Est Glom Filt Rate - Afr Amer 24 mL/min (>60); Glucose 281 mg/dL (74-106); Potassium 4.5 mmol/L (3.5-5.1); Sodium Level 137 mmol/L (136-145)
[2023-01-17 13:59] LABS: Protein, Urine (Random) 95.5 mg/dL (<11.9); Protein:Creat Ratio 860 mg/g CRE (0-200)
== END | disposition home or self-care (01) ==
LOC: LAB 12:36 → LABSPEC 12:38
PROVIDERS: PCP Internal Medicine; Referring Provider Internal Medicine Nephrology; Visit Provider Internal Medicine Nephrology
DX: E55.9 Vitamin D deficiency, unspecified (principal); N25.81 Secondary hyperparathyroidism of renal origin; N18.32 Chronic kidney disease, stage 3b; R80.9 Proteinuria, unspecified; D64.9 Anemia, unspecified
CPT/HCPCS: 36415; 80069; 82306; 82570; 83970; 84156; 85027

== ENCOUNTER 2023-06-12 15:11 | Outpatient (RCR) | payer OTHER, SELFPAY | END 2023-06-24 23:59 | LOC: NS 15:11 | PROVIDERS: PCP Internal Medicine; Referring Provider Internal Medicine; Visit Provider Internal Medicine | DX: Z71.3 Dietary counseling and surveillance (principal); E11.9 Type 2 diabetes mellitus without complications | CPT/HCPCS: 97802 ==

== ENCOUNTER 2023-07-11 10:43 | Outpatient (RCR) | payer OTHER, SELFPAY | END 2023-07-25 23:59 | LOC: NS 10:43 | PROVIDERS: PCP Internal Medicine; Referring Provider Internal Medicine; Visit Provider Internal Medicine | DX: Z71.3 Dietary counseling and surveillance (principal); E11.29 Type 2 diabetes mellitus with other diabetic kidney complication | CPT/HCPCS: 97803 ==

== ENCOUNTER → 2023-07-19 | Outpatient (CLI) | payer OTHER, SELFPAY ==
[2023-07-19 17:04] LABS: Anion Gap 7 (5-15); BUN 37 mg/dL (7-18); BUN/Creat Ratio 17.5 RATIO (10-20); Calcium,Total 10.7 mg/dL (8.5-10.1); Chloride 107 mmol/L (98-107); Creatinine, Serum 2.11 mg/dL (0.55-1.02); EST Glomerular Filtration Rate 25 mL/min (>60); Est Glom Filt Rate - Afr Amer 31 mL/min (>60); Glucose 227 mg/dL (74-106); Sodium Level 136 mmol/L (136-145)
== END | disposition home or self-care (01) ==
LOC: LAB 16:00
PROVIDERS: PCP Internal Medicine; Referring Provider Internal Medicine; Visit Provider Internal Medicine
DX: E11.29 Type 2 diabetes mellitus with other diabetic kidney complication (principal)
CPT/HCPCS: 36415; 80048

== ENCOUNTER → 2023-08-16 | Outpatient (CLI) | payer OTHER, SELFPAY ==
[2023-08-16 16:42] LABS: Hematocrit 41.1 % (37-47); Hemoglobin 13.5 g/dL (12.0-15.0); Mean Corp Hgb Conc 32.8 g/dL (32-36); Mean Corpuscular Hgb 30.1 pg (27.0-32.0); Mean Corpuscular Volume 91.5 fL (81-99); POSITIVE COUNT YES; RBC Distribution Width CV 13.6 % (11.6-14.6); RBC Distribution Width SD 45.6 fl (35.1-43.9); Red Blood Count 4.49 M/mm3 (4.2-5.4); White Blood Count 8.7 K/mm3 (4.4-11.0)
[2023-08-16 16:46] LABS: Protein, Urine (Random) 75.1 mg/dL (<11.9); Protein:Creat Ratio 511 mg/g CRE (0-200)
[2023-08-16 17:07] LABS: PTHIN 63.2 pg/mL (18.4-80.1)
[2023-08-16 17:12] LABS: Albumin, Serum 4.1 g/dL (3.2-5.0); BUN 39 mg/dL (7-18); BUN/Creat Ratio 19.2 RATIO (10-20); Calcium,Total 10.8 mg/dL (8.5-10.1); Chloride 112 mmol/L (98-107); Creatinine, Serum 2.03 mg/dL (0.55-1.02); EST Glomerular Filtration Rate 26 mL/min (>60); Est Glom Filt Rate - Afr Amer 32 mL/min (>60); Glucose 131 mg/dL (74-106); Phosphorus 1.9 mg/dL (2.5-4.9); Sodium Level 139 mmol/L (136-145)
[2023-08-16 17:40] LABS: Scan Indicated on CBC? Y/N YES- FLAGS NOTED
[2023-08-16 17:41] LABS: Differential Comment SCANNED
== END | disposition home or self-care (01) ==
LOC: LAB 15:59
PROVIDERS: PCP Internal Medicine; Visit Provider Internal Medicine Nephrology
DX: R80.9 Proteinuria, unspecified (principal); N25.81 Secondary hyperparathyroidism of renal origin; N18.32 Chronic kidney disease, stage 3b; E55.9 Vitamin D deficiency, unspecified; D64.9 Anemia, unspecified
CPT/HCPCS: 36415; 80069; 82306; 82570; 83970; 84156; 85027

== ENCOUNTER 2023-08-22 09:49 | Outpatient (RCR) | payer OTHER, SELFPAY | END 2023-08-23 23:59 | LOC: NS 09:49 | PROVIDERS: PCP Internal Medicine; Referring Provider Internal Medicine; Visit Provider Internal Medicine | DX: Z71.3 Dietary counseling and surveillance (principal); E11.69 Type 2 diabetes mellitus with other specified complication | CPT/HCPCS: 97803 ==

== ENCOUNTER 2023-10-17 09:42 | Outpatient (RCR) | payer OTHER, SELFPAY | END 2023-10-23 23:59 | LOC: NS 09:42 | PROVIDERS: PCP Internal Medicine; Referring Provider Internal Medicine; Visit Provider Internal Medicine | DX: Z71.3 Dietary counseling and surveillance (principal); E11.69 Type 2 diabetes mellitus with other specified complication | CPT/HCPCS: 97803 ==

== ENCOUNTER 2023-12-19 09:42 | Outpatient (RCR) | payer OTHER, SELFPAY | END 2023-12-23 23:59 | LOC: NS 09:42 | PROVIDERS: PCP Internal Medicine; Referring Provider Internal Medicine; Visit Provider Internal Medicine | DX: Z71.3 Dietary counseling and surveillance (principal); E11.69 Type 2 diabetes mellitus with other specified complication | CPT/HCPCS: 97803 ==

== ENCOUNTER 2024-02-13 09:48 | Outpatient (RCR) | payer OTHER, SELFPAY | END 2024-02-23 23:59 | LOC: NS 09:48 | PROVIDERS: PCP Internal Medicine; Referring Provider Internal Medicine; Visit Provider Internal Medicine | DX: Z71.3 Dietary counseling and surveillance (principal); E11.69 Type 2 diabetes mellitus with other specified complication | CPT/HCPCS: 97803 ==

== ENCOUNTER → 2024-02-13 | Outpatient (CLI) | payer OTHER, SELFPAY ==
[2024-02-13 11:21] LABS: Hematocrit 43.2 % (37-47); Mean Corp Hgb Conc 32.4 g/dL (32-36); Mean Corpuscular Hgb 29.4 pg (27.0-32.0); Mean Corpuscular Volume 90.8 fL (81-99); Mean Platelet Vol. 12.7 fl (6.2-12.0); POSITIVE COUNT YES; RBC Distribution Width CV 13.1 % (11.6-14.6); RBC Distribution Width SD 42.6 fl (35.1-43.9); Red Blood Count 4.76 M/mm3 (4.2-5.4); White Blood Count 7.6 K/mm3 (4.4-11.0)
[2024-02-13 11:50] LABS: PTHIN 83.9 pg/mL (18.4-80.1)
[2024-02-13 11:55] LABS: Albumin, Serum 3.7 g/dL (3.2-5.0); BUN 35 mg/dL (7-18); BUN/Creat Ratio 18.5 RATIO (10-20); Calcium,Total 10.4 mg/dL (8.5-10.1); Chloride 111 mmol/L (98-107); Creatinine, Serum 1.89 mg/dL (0.55-1.02); EST Glomerular Filtration Rate 29 mL/min (>60); Est Glom Filt Rate - Afr Amer 35 mL/min (>60); Glucose 128 mg/dL (74-106); Phosphorus 2.3 mg/dL (2.5-4.9); Potassium 3.9 mmol/L (3.5-5.1); Sodium Level 141 mmol/L (136-145)
[2024-02-13 11:59] LABS: Scan Indicated on CBC? Y/N YES- FLAGS NOTED; Vitamin D,25 Hydroxy 30.3 ng/mL
[2024-02-13 12:12] LABS: Protein, Urine (Random) 106.5 mg/dL (<11.9); Protein:Creat Ratio 942 mg/g CRE (0-200)
== END | disposition home or self-care (01) ==
PROVIDERS: PCP Internal Medicine; Referring Provider Internal Medicine Nephrology; Visit Provider Internal Medicine Nephrology
DX: N25.81 Secondary hyperparathyroidism of renal origin (principal); N18.32 Chronic kidney disease, stage 3b; D64.9 Anemia, unspecified; E55.9 Vitamin D deficiency, unspecified; R80.9 Proteinuria, unspecified
CPT/HCPCS: 80069; 82306; 82570; 83970; 84156; 85027

== ENCOUNTER 2024-04-15 09:46 | Outpatient (RCR) | payer OTHER, SELFPAY | END 2024-04-24 23:59 | LOC: NS 09:46 | PROVIDERS: PCP Internal Medicine; Referring Provider Internal Medicine; Visit Provider Internal Medicine | DX: Z71.3 Dietary counseling and surveillance (principal); E11.29 Type 2 diabetes mellitus with other diabetic kidney complication; E11.69 Type 2 diabetes mellitus with other specified complication; N18.9 Chronic kidney disease, unspecified; E11.22 Type 2 diabetes mellitus with diabetic chronic kidney disease | CPT/HCPCS: 97803 ==

== ENCOUNTER 2024-07-09 09:42 | Outpatient (RCR) | payer OTHER, SELFPAY | END 2024-07-25 23:59 | LOC: NS 09:42 | PROVIDERS: PCP Internal Medicine; Referring Provider Internal Medicine; Visit Provider Internal Medicine | DX: Z71.3 Dietary counseling and surveillance (principal); E11.29 Type 2 diabetes mellitus with other diabetic kidney complication | CPT/HCPCS: 97803 ==

== ENCOUNTER → 2024-08-20 | Outpatient (CLI) | payer OTHER, SELFPAY ==
[2024-08-20 14:42] LABS: Hematocrit 41.9 % (37-47); Hemoglobin 13.5 g/dL (12.0-15.0); Mean Corp Hgb Conc 32.2 g/dL (32-36); Mean Corpuscular Hgb 29.9 pg (27.0-32.0); Mean Corpuscular Volume 92.7 fL (81-99); Mean Platelet Vol. 12.2 fl (6.2-12.0); POSITIVE COUNT YES; RBC Distribution Width CV 13.3 % (11.6-14.6); RBC Distribution Width SD 45.1 fl (35.1-43.9); Red Blood Count 4.52 M/mm3 (4.2-5.4); White Blood Count 7.1 K/mm3 (4.4-11.0)
[2024-08-20 15:13] LABS: Scan Indicated on CBC? Y/N YES- FLAGS NOTED
[2024-08-20 15:37] LABS: Albumin, Serum 4.6 g/dL (3.4-4.8); BUN 48 mg/dL (4-19); BUN/Creat Ratio 25.9 RATIO (10-20); Calcium 11.2 mg/dL (7.6-11.0); Carbon Dioxide 20.1 mmol/L (22.0-29.0); Chloride 109 mmol/L (96-108); Creatinine, Serum 1.8 mg/dL (0.6-1.0); EST Glomerular Filtration Rate 31 (>60); Glucose 117 mg/dL (70-99); Phosphorus 3.6 mg/dL (2.7-4.5); Sodium Level 142 mmol/L (133-145)
[2024-08-20 18:17] LABS: Protein, Urine (Random) 61 mg/dL (<=12); Protein:Creat Ratio 923 mg/g CRE (0-200)
== END | disposition home or self-care (01) ==
LOC: LAB 14:13
PROVIDERS: PCP Internal Medicine; Referring Provider Internal Medicine Nephrology; Visit Provider Internal Medicine Nephrology
DX: D64.9 Anemia, unspecified (principal); N18.32 Chronic kidney disease, stage 3b; R80.9 Proteinuria, unspecified
CPT/HCPCS: 36415; 80069; 82570; 84156; 85027

== ENCOUNTER 2024-10-06 11:10 | Outpatient (RCR) | payer OTHER, SELFPAY | END 2024-10-22 23:59 | LOC: NS 11:10 | PROVIDERS: PCP Internal Medicine; Referring Provider Internal Medicine; Visit Provider Internal Medicine | DX: Z71.3 Dietary counseling and surveillance (principal); E11.29 Type 2 diabetes mellitus with other diabetic kidney complication | CPT/HCPCS: 97803 ==

== ENCOUNTER 2025-01-05 10:42 | Outpatient (RCR) | payer OTHER, SELFPAY | END 2025-01-22 23:59 | LOC: NS 10:42 | PROVIDERS: PCP Internal Medicine; Referring Provider Internal Medicine; Visit Provider Internal Medicine | DX: Z71.3 Dietary counseling and surveillance (principal); E11.29 Type 2 diabetes mellitus with other diabetic kidney complication; N18.9 Chronic kidney disease, unspecified | CPT/HCPCS: 97803 ==

== ENCOUNTER → 2025-02-12 | Outpatient (CLI) | payer OTHER, SELFPAY ==
[2025-02-12 16:32] LABS: Hematocrit 41.8 % (37-47); Hemoglobin 13.9 g/dL (12.0-15.0); Mean Corp Hgb Conc 33.3 g/dL (32-36); Mean Corpuscular Volume 91.7 fL (81-99); POSITIVE COUNT YES; RBC Distribution Width CV 13.4 % (11.6-14.6); RBC Distribution Width SD 45.0 fl (35.1-43.9); Red Blood Count 4.56 M/mm3 (4.2-5.4); White Blood Count 8.6 K/mm3 (4.4-11.0)
[2025-02-12 17:07] LABS: Creatinine, Urine (random) 77.90 mg/dL (28.00-217.00); Protein, Urine (Random) 85.6 mg/dL (0.0-12.0); Protein:Creat Ratio 1099 mg/g CRE (0-200)
[2025-02-12 17:09] LABS: Albumin, Serum 4.7 g/dL (3.4-4.8); Anion Gap 15 (5-15); BUN 45 mg/dL (4-19); BUN/Creat Ratio 21.2 RATIO (10-20); Calcium,Total 10.9 mg/dL (7.6-11.0); Carbon Dioxide 17.7 mmol/L (21.0-32.0); Chloride 107 mmol/L (98-108); Glucose 140 mg/dL (70-99); Potassium 4.4 mmol/L (3.3-5.1)
[2025-02-12 17:12] LABS: PTHIN 88 pg/mL (11-61)
[2025-02-12 18:07] LABS: Scan Indicated on CBC? Y/N YES- FLAGS NOTED
[2025-02-12 18:25] LABS: Vitamin D,25 Hydroxy 32.2 ng/mL (30-100)
== END | disposition home or self-care (01) ==
LOC: LAB 16:03
PROVIDERS: PCP Internal Medicine; Referring Provider Internal Medicine Nephrology; Visit Provider Internal Medicine Nephrology
DX: D64.9 Anemia, unspecified (principal); N18.32 Chronic kidney disease, stage 3b; R80.9 Proteinuria, unspecified
CPT/HCPCS: 36415; 80069; 82306; 82570; 83970; 84156; 85027

== ENCOUNTER → 2025-02-17 | Outpatient (CLI) | payer OTHER, SELFPAY ==
--- NOTE | 2025-02-17 10:40 | BD_ITS ---
PROCEDURE: DEXA BONE DENSITY STUDY 02/17/2025 REASON FOR EXAM: F, age 64 y/o . Postmenopausal. TECHNIQUE: DEXA BONE DENSITY STUDY COMPARISON: Prior study dated November 30, 2021. FINDINGS: BMD and T-SCORES Lumbar spine: 1.052 g/cm2, T-score 0.3 Levels: L1 through L4 Change from prior: Improvement of 7.7%. Left femoral neck: 0.610 g/cm2, T-score -2.2 Femoral neck comparison data not recommended for monitoring change. Left total hip: 0.896 g/cm2, T-score -0.4 Change from prior: Improvement of 0.6%. Right femoral neck: 0.613 g/cm2, T-score -2.1 Femoral neck comparison data not recommended for monitoring change. Right total hip: 0.872 g/cm2, T-score -0.6 Change from prior: Improvement of 1.4%. The World Health Organization has defined the following categories based on bone density: Normal bone density: T-score equal to or greater than -1.0 Osteopenia: T-score between -1.0 and -2.5 Osteoporosis: T-score equal to or less than -2.5 FRAX (or Comparable) Fracture Risk Assessment: 10 Year Probability of Fracture: Major Osteoporotic Fracture: 17% Hip Fracture: 2.6% (Note: FRAX is not to be reported in setting of normal range bone density, osteoporosis on DEXA, known history of osteoporosis, prior osteoporotic hip or vertebral fracture, or for any patient undergoing pharmacological treatment for bone loss.) The National Osteoporosis Foundation (NOF) recommends pharmacological treatment for patients with a FRAX 10-year risk of 3% or higher for a hip fracture, or 20% or higher for a major osteoporotic fracture, to prevent osteoporosis and reduce fracture risk. The patient does meet the pharmacological treatment recommendations for prevention of osteoporosis. BD/Dexa Bone Density Study IMPRESSION: OSTEOPENIA. Recommend follow-up as clinically warranted. Reading Location: [id number]
== END | disposition home or self-care (01) ==
PROVIDERS: PCP Internal Medicine; Referring Provider Internal Medicine; Visit Provider Internal Medicine
DX: Z78.0 Asymptomatic menopausal state (principal)
CPT/HCPCS: 77080

== ENCOUNTER 2025-04-07 10:47 | Outpatient (RCR) | payer OTHER, SELFPAY | END 2025-04-24 23:59 | LOC: NS 10:47 | PROVIDERS: PCP Internal Medicine; Referring Provider Internal Medicine; Visit Provider Internal Medicine | DX: E11.29 Type 2 diabetes mellitus with other diabetic kidney complication (principal) | CPT/HCPCS: 97803 ==

== ENCOUNTER → 2025-05-18 | Outpatient (CLI) | payer OTHER, SELFPAY ==
--- NOTE | 2025-05-18 18:09 | CT_ITS ---
PROCEDURE: CHEST WITHOUT CONTRAST 05/18/2025 REASON FOR EXAM: COUGH IN ADULT TECHNIQUE: Chest CT without contrast. Coronal and Sagittal reconstruction series were provided. One or more dose reduction techniques were used (e.g., Automated exposure control, adjustment of the mA and/or kV according to patient size, use of iterative reconstruction technique RADIATION DOSE SUMMARY: CTDlvol: 14 mGy DLP: 490.8 mGycm COMPARISON: 04 May 2025 and 22 October 2018 FINDINGS: Hardware: None. Lymph nodes: Subcentimeter in short axis mediastinal lymph nodes. Heart and Vasculature: No cardiomegaly or pericardial effusion. Atherosclerotic calcifications of the thoracic aorta. Thoracic aorta and pulmonary arteries have normal contours; noncontrast technique limits evaluation. Coronary Artery Calcifications: Present Lungs and Airways: The lungs are adequately aerated bilaterally with bilateral dependent atelectasis. A few calcified granulomas. Tiny, sub 3 mm pulmonary nodules. Pleura: No pleural effusion or pneumothorax. Upper Abdomen: Borderline hepatic steatosis. Bones: Mild degenerative changes of the thoracic spine without suspicious lytic or blastic lesion. The soft tissues are otherwise unremarkable. CT/Chest without Contrast IMPRESSION: Coronary artery calcification (CAC) is is present 1. Sub 3 mm pulmonary nodule. No suspicious nodule. Recommend repeat chest C T in 12 months for continued surveillance. 2. No mediastinal lymphadenopathy. 3. Borderline hepatic steatosis. Reading Location: [id number]
== END | disposition home or self-care (01) ==
PROVIDERS: PCP Internal Medicine; Referring Provider Internal Medicine; Visit Provider Internal Medicine
DX: R05.9 Cough, unspecified (principal)
CPT/HCPCS: 71250

== ENCOUNTER → 2025-06-15 | Outpatient (CLI) | payer OTHER, SELFPAY | END | disposition home or self-care (01) | LOC: CIMLAB 11:39 | PROVIDERS: PCP Internal Medicine; Referring Provider Internal Medicine; Visit Provider Internal Medicine | DX: Z13.9 Encounter for screening, unspecified (principal) | CPT/HCPCS: 36415 ==

== ENCOUNTER → 2025-06-16 | Outpatient (CLI) | payer OTHER, SELFPAY | END | disposition home or self-care (01) | PROVIDERS: PCP Internal Medicine; Referring Provider Internal Medicine; Visit Provider Internal Medicine | DX: Z13.9 Encounter for screening, unspecified (principal) ==